=== PATIENT | female | born 1975 | race Caucasian/White ===

== ENCOUNTER 2020-03-26 01:00 | Outpatient (REF) | payer OTHER, SELFPAY | END 2020-03-26 01:01 | disposition home or self-care (01) | LOC: HO.LNP 01:00 | PROVIDERS: Visit Provider Family Medicine | DX: Z20.828 Contact with and (suspected) exposure to other viral communicable diseases (principal) | CPT/HCPCS: U0003 ==

== ENCOUNTER → 2020-04-30 10:22 | Outpatient (BNVA) | payer OTHER, SELFPAY | PROVIDERS: PCP Internal Medicine; Referring Provider Internal Medicine; Visit Provider Dietitian, Registered | DX: Z76.89 Persons encountering health services in other specified circumstances (principal) ==

== ENCOUNTER → 2020-06-18 11:07 | Outpatient (BNVA) | payer OTHER, SELFPAY | PROVIDERS: PCP Internal Medicine; Referring Provider Internal Medicine; Visit Provider Internal Medicine Endocrinology, Diabetes & Metabolism ==

== ENCOUNTER 2020-06-23 13:55 | Outpatient (REF) | payer OTHER, SELFPAY ==
--- NOTE | ~2020-06-23 | MM_ITS ---
EXAMINATION: MM SCREENING DIGITAL BREAST TOMOSYNTHESIS, BILATERAL CLINICAL INFORMATION: Screening. Asymptomatic. Prior history ultrasound-guided left breast biopsy 2016 (benign apocrine cyst). The lifetime risk of breast cancer based on the Tyrer-Cuzick Model is 16%. COMPARISON: Mammography: 02/10/2019, 01/19/2018, 11/10/2016 TECHNIQUE: Digital breast tomosynthesis is performed in both the craniocaudal and mediolateral oblique views along with computer-aided detection (CAD). Synthesized 2D images are generated from the tomosynthesis. FINDINGS: There are scattered areas of fibroglandular density (ACR BI-RADS breast composition Category b). There are no significant masses, abnormal calcifications, or other abnormalities. There is fine nodular parenchymal pattern. There is no dominant mass or architectural abnormality. Biopsy clip marker again seen posterior 9:00 left breast. The axilla and skin contours are unremarkable. No significant change. MM/MM tomosynthesis screening BI IMPRESSION: No mammographic evidence of malignancy. ASSESSMENT: BI-RADS 2: Benign RECOMMENDATION: Routine annual mammography screening. This patient's information was entered into a reminder system with a target due date for their next mammogram.
== END 2020-06-23 13:56 | disposition home or self-care (01) ==
LOC: HO.MAMMO 13:55
PROVIDERS: PCP Internal Medicine; Visit Provider Internal Medicine
DX: Z12.31 Encounter for screening mammogram for malignant neoplasm of breast (principal)
CPT/HCPCS: 77063; 77067

== ENCOUNTER 2020-07-04 10:28 | Outpatient (REF) | payer OTHER, SELFPAY ==
[2020-07-04 11:20] LABS: Hematocrit 46.7 % (37-47); Mean Corpuscular HGB Conc 32.1 g/dl (31.0-35.0); Mean Corpuscular Hemoglobin 26.2 pg (27.0-33.0); Mean Corpuscular Volume 81.5 fL (80-98); Mean Platelet Volume 12.8 fL (9.4-12.3); Platelet Count 224 X10*3/uL (160-400); Red Blood Count 5.73 X10*6/uL (4.20-5.50); Red Cell Distribution Width 13.4 % (11.0-16.0); White Blood Count 7.2 X10*3/uL (4.8-10.8)
[2020-07-04 11:33] LABS: Alanine Aminotransferase 23 U/L (0-31); Albumin Level 4.4 g/dL (3.5-5.0); Alkaline Phosphatase 65 U/L (39-117); Anion Gap 13 (12-20); Aspartate Amino Transferase 17 U/L (5-31); Bilirubin Total 0.4 mg/dL (0.0-1.0); Blood Urea Nitrogen 9 mg/dL (9-16); Calcium 9.2 mg/dL (8.4-10.2); Carbon Dioxide 27 mmol/L (22-29); Chloride 104 mmol/L (96-108); Cholesterol 208 mg/dL; Estimated Glomerular Filt Rate > 60; Glucose Fasting 116 mg/dL (60-99); HDL Cholesterol 48 mg/dL; LDL Cholesterol Calculated 119 mg/dl; Potassium 4.3 mmol/L (3.3-5.1); Sodium 140 mmol/L (135-145); Total Protein 7.7 g/dL (6.5-8.0); Triglycerides 205 mg/dL
[2020-07-04 11:44] LABS: Free T4 (Free Thyroxine) 1.43 ng/dL (0.71-1.85); Thyroid Stimulating Hormone 0.03 uIU/mL (0.32-4.0)
[2020-07-04 12:08] LABS: Creatinine Urine 228.29 mg/dL
[2020-07-04 12:17] LABS: Estimated Average Glucose 108 mg/dL; Hemoglobin A1c % 5.4 %
[2020-07-05 04:57] LABS: LDL Cholesterol Direct 129 mg/dL (<100)
[2020-07-07 05:12] LABS: Thyroglobulin Antibody <1 IU/mL (<=1); Thyroglobulin Level <0.1 ng/mL
== END 2020-07-04 10:29 | disposition home or self-care (01) ==
LOC: HO.LAB 10:28
PROVIDERS: PCP Internal Medicine; Visit Provider Internal Medicine Endocrinology, Diabetes & Metabolism
DX: E11.9 Type 2 diabetes mellitus without complications (principal); C73 Malignant neoplasm of thyroid gland
CPT/HCPCS: 36415; 80053; 80061; 82043; 83036; 83721; 84432; 84439; 84443; 85027; 86800

== ENCOUNTER 2020-07-19 14:03 | Outpatient (REF) | payer OTHER, SELFPAY | END 2020-07-19 14:04 | disposition home or self-care (01) | LOC: HO.LNP 14:03 | PROVIDERS: Visit Provider Family Medicine | DX: Z20.822 Contact with and (suspected) exposure to COVID-19 (principal); R05 Cough | CPT/HCPCS: U0003; U0005 ==

== ENCOUNTER → 2020-07-30 10:20 | Outpatient (BNVA) | payer OTHER, SELFPAY | PROVIDERS: PCP Internal Medicine; Visit Provider Dietitian, Registered ==

== ENCOUNTER → 2020-08-29 09:49 | Outpatient (BNVA) | payer OTHER, SELFPAY | PROVIDERS: PCP Internal Medicine; Visit Provider Dietitian, Registered | DX: E66.9 Obesity, unspecified (principal); E11.9 Type 2 diabetes mellitus without complications | CPT/HCPCS: 97803 ==

== ENCOUNTER → 2020-10-22 14:15 | Outpatient (BNVA) | payer OTHER, SELFPAY | PROVIDERS: PCP Internal Medicine; Visit Provider Internal Medicine Endocrinology, Diabetes & Metabolism ==

== ENCOUNTER 2020-11-01 13:58 | Outpatient (REF) | payer OTHER, SELFPAY ==
--- NOTE | ~2020-11-01 | US_ITS ---
EXAMINATION: US SOFT TISSUE NECK CLINICAL INFORMATION: Malignant neoplasm of thyroid gland. COMPARISON: None. TECHNIQUE: Ultrasound of the neck soft tissues is performed with high- frequency howe-scale imaging and color Doppler. FINDINGS: THYROID BED: Prior thyroidectomy. No residual thyroid tissue demonstrated in the thyroid bed. No cystic or solid nodules demonstrated in the thyroid bed. RIGHT NECK SOFT TISSUES: Scattered architecturally normal nodes are present. The nodes show normal fatty hilus, normal cortical thickness, and no cystic change or calcification. No abnormal color flow. The largest nodes are as follows: Level 1B: 0.9 x 0.6 x 1.0 cm. Normal kristal architecture. Level 2: 0.9 x 0.5 x 0.9 cm. Normal kristal architecture.. Level 2:1.2 x 0.5 0.8 cm. Normal kristal architecture. Previously measured 1.1 x 0.7 x 0.9 cm. Level 5A: 1.2 x 0.3 x 0.7 cm. Normal kristal architecture. Level 5B: 1.6 x 0.6 was 0.8 cm. Normal kristal architecture. Low level 3: 1.2 x 0.6 x 1.1 cm. Normal kristal architecture. Previously measured 1.5 x 0.7 x 0.9 cm. LEFT NECK SOFT TISSUES: Scattered architecturally normal nodes are present. The nodes show normal fatty hilus, normal cortical thickness, and no cystic change or calcification. No abnormal color flow. The largest nodes are as follows: Level 1B: 0.6 x 0.4 x 1.0 cm. Normal kristal architecture. Level 2: 1.3 x 0.6 x 1.3 cm. Normal kristal architecture. Level 2:1.0 x 0.4 0.4 cm. Normal kristal architecture. Level 3:1.2 x 0.7 x 0.9 cm, normal kristal architecture. Previously measured 1.5 x 0.4 x 0.9 cm at level for: 1.7 x 0.4 x 0.8 cm. Normal kristal architecture. Level 4: 1.7 x 0.4 x 0.8 cm. Normal kristal architecture. US/US soft tiss head and/or neck IMPRESSION: 1. Bilateral benign neck lymph nodes. None of the lymph nodes are suspicious at this time. 2. If clinically indicated further evaluation of the neck soft tissues and nodes may be performed with CT soft tissue neck with intravenous contrast.
== END 2020-11-01 13:59 | disposition home or self-care (01) ==
LOC: HO.US 13:58
PROVIDERS: PCP Internal Medicine; Visit Provider Internal Medicine Endocrinology, Diabetes & Metabolism
DX: C73 Malignant neoplasm of thyroid gland (principal)
CPT/HCPCS: 76536

== ENCOUNTER 2020-12-11 11:35 | Emergency (ER) | payer OTHER, SELFPAY ==
[2020-12-11 12:09] VITALS: BP 133/71; PULSE 60; RESP 18; TEMP 37.4; O2SAT 97; BMI 37.0
--- NOTE | 2020-12-11 15:55 | ED_ITS ---
HPI - General Adult General Chief complaint: General Medical Stated complaint: having symptoms of mild stroke Time Seen by Provider: 12/11/20 15:45 Source: patient Mode of arrival: ambulatory Limitations: no limitations History of Present Illness HPI narrative: 45-year-old female was sent by her PCP for evaluation of stroke symptoms. 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 And intermittent headaches, patient has a neurologist who evaluated the patient for insomnia but patient would like to get another neurologist for evaluation of her symptoms and she called her PCP who strongly advised her to come to the ED for further evaluation. Patient in the emergency department had no symptoms, felt that the patient need outpatient Neurology evaluation. Related Data Home Medications Medication Instructions Recorded Confirmed albuterol sulfate 90 mcg/actuation 2 puff INHALATION Q4-6H PRN 03/26/20 10/22/20 aerosol inhaler blood sugar diagnostic #10 ea 03/26/20 10/22/20 blood-glucose meter #1 ea 03/26/20 10/22/20 calcium citrate mal.-vit tab PO 03/26/20 10/22/20 D2-magnesium ox 200 mg-200 unit-25 mg tablet ergocalciferol (vitamin D2) 50 mcg 0 mcg PO 03/26/20 10/22/20 (2,000 unit) capsule fluticasone propionate 110 2 puff INHALATION BID 03/26/20 10/22/20 mcg/actuation HFA aerosol inhaler lancets 28 gauge #100 ea 03/26/20 10/22/20 levonorgestrel 20 mcg/24 hours (6 0 device VAGINAL 03/26/20 10/22/20 yrs) 52 mg intrauterine device Previous Rx's Medication Instructions Recorded ferrous sulfate 325 mg (65 mg 325 mg PO TID 90 Days #270 tab 04/27/20 iron) tablet ropinirole 0.5 mg tablet 1 mg PO DAILY #180 tab 07/27/20 sertraline 50 mg tablet 100 mg PO DAILY #180 tab 07/27/20 ergocalciferol (vitamin D2) 50 mcg 50 mcg PO DAILY 90 Days #90 cap 10/22/20 (2,000 unit) capsule levothyroxine 150 mcg tablet 150 mcg PO DAILY 90 Days #90 tab 10/22/20 Allergies Allergy/AdvReac Type Severity Reaction Status Date / Time lactose AdvReac Severe Abdominal Verified 12/11/20 12:09 Pain shrimp Allergy Severe Anaphylaxis Uncoded 04/30/20 10:48 Review of Systems Review of Systems: All other systems are reviewed and are negative Constitutional: Reports as per HPI and Reports no additional constitutional complaints Eyes: Reports as per HPI and Reports no additional eye complaints Reports system reviewed and no additional complaints, except as documented Cardiovascular: Reports as per HPI and Reports no additional cardiovascular complaints Respiratory: Reports as per HPI and Reports no additional respiratory complaints Gastrointestinal: Reports as per HPI and Reports no additional gastrointestinal complaints Genitourinary: Reports no additional female genitourinary complaints Musculoskeletal: Reports no additional musculoskeletal complaints Skin/Breast: Reports system reviewed and no additional complaints, except as docu Psychiatric: Reports no additional psychiatric complaints Endocrine: Reports no additional endocrine complaints Hematologic/Lymphatic: Reports no additional hematologic/lymphatic complaints Allergic/Immunologic: Reports no additional allergic/immunologic complaints Reports system reviewed and no additional complaints, except as documented and Reports Abnormal speech present [facility] Past Medical History Medical History Papillary microcarcinoma of thyroid Post-surgical hypothyroidism Vitamin D deficiency Surgical History History of partial hysterectomy Hx of carpal tunnel repair Hx of thyroidectomy Family History Family History Father Diabetes mellitus Mother No problems noted. Maternal Grandmother Bladder cancer Paternal Aunt Breast cancer Social History Social History (Updated 06/18/20 @ 11:06 by NIXON Smith) Household Members: Family Patient : No Physical Exam Vital Signs: Vital Signs: Last Vital Signs Temp 99.4 F 12/11/20 12:09 Pulse 60 12/11/20 12:09 Resp 18 12/11/20 12:09 BP 133/71 12/11/20 12:09 Pulse Ox 97 12/11/20 12:09 Body Mass Index 37.0 Vital signs have been reviewed as appeared to be correct. Blood pressure normal. Heart rate normal. Respiration rate normal. Temperature normal. Oxygen saturation normal. Appearance: Alert. Oriented X3. No acute distress. Head: Normal external exam. Normocephalic. Atraumatic. No Davis signs noted. No raccoon eyes noted Eyes: PERRLA. EOMI. Conjunctiva and sclera normal. Eyelids normal. ENT: TM's Normal. Pharynx normal. Uvula midline. Moist mucous membranes. No trismus noted. No drooling noted. No muffled voice noted. Neck: Normal inspection. Neck supple. FROM. No adenopathy. Thyroid Normal. No meningeal signs. No neck mass noted. CVS: Normal heart rate and rhythm. Heart sound normal. No murmurs noted. Pulses normal throughout. Respiratory: No respiratory distress. Painless inspiration. Breath sounds normal. No wheezes/rales/rhonchi noted. Chest nontender. No accessory muscle usage noted or decreased air movement noted. Abdomen: Soft and nontender. Bowel sounds normal in all 4 quadrants. No distention noted. No organomegaly noted. No visible injury noted. Back: No CVA tenderness. Full range of motion noted. Skin: Skin warm and dry. Normal skin color. Normal skin turgor. No rashes/lesions/lacerations noted. Extremities: No lower extremity edema. Extremities exhibit normal range of motion. Extremities nontender. Neuro: Oriented X 3. No motor deficit. No sensory deficit. Reflexes normal. NIH Stroke Scale Level of Consciousness: Alert Level of Consciousness Questions: Answers both questions correctly Level of Consciousness Commands: Performs both tasks correctly Best Gaze: Normal Visual: No visual loss Facial Palsy: Normal Motor Arm (Right): No drift Motor Arm (Left): No drift Motor Leg (Right): No drift Motor Leg (Left): No drift Limb Ataxia: Absent Sensory: Normal Best Language: No aphasia Dysarthia: Normal Extinction and Inattention: No abnormality Score: 0 Course Course Course Narrative: Assessment and plan. 45-year-old female with low risk for CVA (taking no hormonal therapy, history of minor elevated triglyceride been controlled with exercise and diet, borderline diabetes been controlled by diet, has 1 and diagnosed with minor stroke without residual symptoms) patient has normal neural exam with NIH Stroke Score of 0, and symptoms started months ago only patient can notice it otherwise symptoms is subtle for others. At this point felt no acute emergency intervention is needed to be done in the emergency department today, patient was instructed to contact her PCP and get outpatient Neurology consultation. Discharge Plan Discharge Clinical Impression: Encounter for medical screening examination Patient Disposition: Home, Self-Care Instructions: Normal Exam (ED) Additional Instructions: Call your doctor request a referral to neurologist as an outpatient. Prescriptions: No Action ferrous sulfate 325 mg (65 mg iron) tablet 325 mg PO TID 90 Days Qty: 270 RF: 3 ropinirole 0.5 mg tablet 1 mg PO DAILY Qty: 180 RF: 3 sertraline 50 mg tablet 100 mg PO DAILY Qty: 180 RF: 3 (DME) FreeStyle Lite Strips Strip See Rx Instructions ea Not Applicable DAILY Qty: 10 RF: 0 ergocalciferol (vitamin D2) 50 mcg (2,000 unit) capsule 0 mcg PO RF: 0 (DME) lancets 28 gauge misc See Rx Instructions ea topical DAILY Qty: 100 RF: 0 (DME) blood-glucose meter Kit See Rx Instructions ea .ROUTE DAILY Qty: 1 RF: 0 Mirena 20 mcg/24 hours (6 yrs) 52 mg intrauterine device 0 device vaginal RF: 0 calcium cit mal-vit D2-mag ox 200-200-25 mg-unit-mg tablet PO RF: 0 albuterol sulfate 90 mcg/actuation HFA aerosol inhaler 2 puff inhalation Q4-6H PRNRF: 0 fluticasone propionate 110 mcg/actuation HFA aerosol inhaler 2 puff inhalation BID RF: 0 levothyroxine 150 mcg tablet 150 mcg PO DAILY 90 Days Qty: 90 RF: 3 ergocalciferol (vitamin D2) 50 mcg (2,000 unit) capsule 50 mcg PO DAILY 90 Days Qty: 90 RF: 3 Referrals: Rica Rader MD [Primary Care Provider] - 2 days
--- NOTE | 2020-12-11 16:29 | PC.NURSE ---
pt alert and oriented x3. she reports having numbness, tingling, headache, and facial drooping x1 month. She states her PCP advised her to come to ed for further evaluation. Neuros intact, no visible facial drooping noted, equal strength bilateral upper and lower extremity. Pt evaluated by ed provider and is cleared for discharge.
== END 2020-12-11 16:40 | disposition home or self-care (01) ==
PROVIDERS: Emergency Provider Emergency Medicine; PCP Internal Medicine
DX: Z71.1 Person with feared health complaint in whom no diagnosis is made (principal)
CPT/HCPCS: 99283

== ENCOUNTER → 2021-01-09 08:41 | Outpatient (BNVA) | payer OTHER, SELFPAY | PROVIDERS: PCP Internal Medicine; Visit Provider Dietitian, Registered | DX: E66.9 Obesity, unspecified (principal); E11.9 Type 2 diabetes mellitus without complications | CPT/HCPCS: 97803 ==

== ENCOUNTER 2021-05-02 18:17 | Outpatient (REF) | payer OTHER, SELFPAY ==
[2021-05-02 18:58] LABS: Influenza A PCR NEGATIVE (Negative); Influenza B PCR NEGATIVE (Negative); Resp Syncy Virus RNA Qual PCR NEGATIVE (Negative); SARS COV2 PCR INHOUSE NEGATIVE (Negative)
== END 2021-05-02 18:18 | disposition home or self-care (01) ==
LOC: HO.LNP 18:17
PROVIDERS: Visit Provider Family Medicine
DX: Z20.822 Contact with and (suspected) exposure to COVID-19 (principal); R05.9 Cough, unspecified
CPT/HCPCS: 0241U

== ENCOUNTER 2021-06-27 08:34 | Outpatient (REF) | payer OTHER, SELFPAY ==
[2021-06-27 11:09] LABS: Free T4 (Free Thyroxine) 1.14 ng/dL (0.71-1.85); Thyroid Stimulating Hormone 0.44 uIU/mL (0.32-4.0)
[2021-07-01 02:31] LABS: Thyroglobulin Antibody <1 IU/mL (<=1)
[2021-07-01 05:07] LABS: Thyroglobulin Level <0.1 ng/mL
== END 2021-06-27 08:35 | disposition home or self-care (01) ==
LOC: HO.10HDL 08:34
PROVIDERS: Visit Provider Internal Medicine Endocrinology, Diabetes & Metabolism
DX: C73 Malignant neoplasm of thyroid gland (principal)
CPT/HCPCS: 36415; 84432; 84439; 84443; 86800

== ENCOUNTER → 2021-07-10 09:46 | Outpatient (BNVA) | payer OTHER, SELFPAY | PROVIDERS: PCP Internal Medicine; Visit Provider Dietitian, Registered | DX: E66.9 Obesity, unspecified (principal); E11.9 Type 2 diabetes mellitus without complications | CPT/HCPCS: 97803 ==

== ENCOUNTER 2021-07-20 09:54 | Outpatient (REF) | payer OTHER, SELFPAY ==
--- NOTE | ~2021-07-20 | MM_ITS ---
EXAMINATION: MM SCREENING DIGITAL BREAST TOMOSYNTHESIS, BILATERAL CLINICAL INFORMATION: Screening. Asymptomatic. The lifetime risk of breast cancer based on the Tyrer-Cuzick Model is 14%. COMPARISON: Mammography: 06/23/2020, 02/10/2019, 01/19/2018 TECHNIQUE: Digital breast tomosynthesis is performed in both the craniocaudal and mediolateral oblique views along with computer-aided detection (CAD). Synthesized 2D images are generated from the tomosynthesis. FINDINGS: There are scattered areas of fibroglandular density (ACR BI-RADS breast composition Category b). Parenchymal pattern is similar to prior studies. There is no developing density or architectural abnormality. Scattered fibronodular pattern is stable. There is a biopsy clip marker again noted posterior 9:00 left breast. The axilla and skin contours are unremarkable. No significant changes. MM/MM tomosynthesis screening BI IMPRESSION: No mammographic evidence of malignancy. ASSESSMENT: BI-RADS 2: Benign RECOMMENDATION: Routine annual mammography screening. This patient's information was entered into a reminder system with a target due date for their next mammogram.
== END 2021-07-20 09:55 | disposition home or self-care (01) ==
LOC: HO.MAMMO 09:54
PROVIDERS: Visit Provider Internal Medicine
DX: Z12.31 Encounter for screening mammogram for malignant neoplasm of breast (principal)
CPT/HCPCS: 77063; 77067

== ENCOUNTER 2021-08-13 13:58 | Outpatient (REF) | payer OTHER, SELFPAY ==
--- NOTE | 2021-08-13 16:08 | MHC.AU.ANR ---
Adult Audiological Evaluation Date of Visit: 08/13/21 Reason for Appointment: Claire was seen for a hearing evaluation to determine the status of a right sided hearing loss. 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 She states she has noticed increased difficulties understanding speech on the phone, at work, and at home. She states the hearing loss is now affecting her work abilities and social life. She reports not being ready to pursue hearing aids when she was first diagnosed with a hearing loss, but is now ready to consider them. She denies any tinnitus, vertigo, or history of excessive noise exposure. Does patient feel they have a hearing loss?: Yes If Yes, Which Ear?: Right Ear When Was Hearing Difficulty First Noticed?: 1997 Has hearing been tested previously?: Yes Previous Hearing Test Results: [facility]- Right sided sensorineural noise notch . Previous records not available for review today. Hearing Handicap Inventory: HHIE SCORE: 20 Based on HHIE score, patient has: Mild to moderate perceived hearing handicap Ear History: Recent Ear Drainage: Loose cerumen since childhood. Family History of Hearing Loss?: Yes: Father Ear used on the phone: Left Ear History of occupational noise exposure?: No Medical History: Medical History: Headache, Thyroid Disease Medical History (Other): Carpel tunnel surgery in 2003, Thyroidectomy 2018, reported an incident in childhood where her right TM was perforated Allergies: Shrimp, lactose Medication List: Levothyroxine, Sertraline, vitamin D, vitamin B, calcium, iron, Omeprazol, Flovent inhaler, Flonase Otoscopy: Right Ear: Unremarkable Left Ear: Unremarkable Tympanometry: Tympanometry performed due to: To assess integrity of the middle ear system Right Ear: Normal Middle Ear System (Type A) Left Ear: Normal Middle Ear System (Type A) Hearing Evaluation: Transducer(s) Used: Insert Earphones, Bone Conduction Method: Conventional Audiometry Stimuli Used: Pure Tones Right Ear: Description of Hearing: Normal hearing thresholds from 250-2000 Hz, precipitously sloping to a moderately severe sensorineural hearing loss at 3000 Hz, rising to normal hearing at 8000 Hz. A 25-40 dB asymmetry is noted from 7808-6175 Hz, right ear worse. Left Ear: Description of Hearing: Normal hearing thresholds from 250-8000 Hz. Speech Recognition Threshold (SRT): Method Used: Monitored Live Voice Stimuli Used: Spondee Words Right Ear: 20 dB HL Left Ear: 5 dB HL Word Discrimination: Method: Recorded Lists Word Lists Used: NU-6 Right Ear: 96% at 65 dB HL Left Ear: 100% at 65 dB HL QuickSIN: A 2 dB SNR loss was obtained when presented binaurally at 65 dB HL. This suggests normal speech in noise understanding abilities. Comparison: Compared to the most recent evaluation: Patient reports this audiogram looks very similar to the previous audiogram obtained at [facility]. Interpretation of Results: Asymmetrical sensorineural hearing loss, right ear worse from 9216-8997 Hz. Normal middle ear mobility. Recommendations: Claire should follow up ENT due to the asymmetrical nature of her hearing loss. If medical clearance is obtained, Claire is a candidate for a right sided hearing aid due to the degree of the hearing loss and patient complaints. She should contact her insurance company to determine if a hearing aid benefit could be accessed. Claire should return in one year to monitor the status of her hearing loss. Diagnosis: Primary Diagnosis: H90.41 SNHL Unilateral Right Ear, W/Unrestricted Contralateral Hearing Services Performed: Services Performed: Comprehensive Audiological Evaluation (CPT 20940) Tympanometry (CPT 65116) Signature: Student/Clinical Fellow: Yes: Mercy Wang B.A., Estela Electrical Software Engineer I have reviewed/agreed with student/fellow documentation: Yes Provider: Estela Cote, [facility]
--- NOTE | 2021-08-13 16:11 | MHC.AU.ANR ---
Adult Audiological Evaluation Date of Visit: 08/13/21 Reason for Appointment: Claire was seen for a hearing evaluation to determine the status of a right sided hearing loss. 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 She states she has noticed increased difficulties understanding speech on the phone, at work, and at home. She states the hearing loss is now affecting her work abilities and social life. She reports not being ready to pursue hearing aids when she was first diagnosed with a hearing loss, but is now ready to consider them. She denies any tinnitus, vertigo, or history of excessive noise exposure. Does patient feel they have a hearing loss?: Yes If Yes, Which Ear?: Right Ear When Was Hearing Difficulty First Noticed?: 1997 Has hearing been tested previously?: Yes, [facility]- Right sided sensorineural noise notch . Previous records not available for review today. Hearing Handicap Inventory: HHIE SCORE: 20 Based on HHIE score, patient has: Mild to moderate perceived hearing handicap Ear History: Recent Ear Drainage: Loose cerumen since childhood. Family History of Hearing Loss?: Yes: Father Medical History: Medical History: Headache, Thyroid Disease Medical History (Other): Carpel tunnel surgery in 2003, Thyroidectomy 2018, reported an incident in childhood where her right TM was perforated Allergies: Shrimp, lactose Medication List: Levothyroxine, Sertraline, vitamin D, vitamin B, calcium, iron, Omeprazol, Flovent inhaler, Flonase Otoscopy: Right Ear: Unremarkable Left Ear: Unremarkable Tympanometry: Tympanometry performed due to: To assess integrity of the middle ear system Right Ear: Normal Middle Ear System (Type A) Left Ear: Normal Middle Ear System (Type A) Hearing Evaluation: Transducer(s) Used: Insert Earphones, Bone Conduction Method: Conventional Audiometry Stimuli Used: Pure Tones Right Ear: Description of Hearing: Normal hearing thresholds from 250-2000 Hz, precipitously sloping to a moderately severe sensorineural hearing loss at 3000 Hz, rising to normal hearing at 8000 Hz. A 25-40 dB asymmetry is noted from 4006-4458 Hz, right ear worse. Left Ear: Description of Hearing: Normal hearing thresholds from 250-8000 Hz. Speech Recognition Threshold (SRT): Method Used: Monitored Live Voice Stimuli Used: Spondee Words Right Ear: 20 dB HL Left Ear: 5 dB HL Word Discrimination: Method: Recorded Lists Word Lists Used: NU-6 Right Ear: 96% at 65 dB HL Left Ear: 100% at 65 dB HL QuickSIN: A 2 dB SNR loss was obtained when presented binaurally at 65 dB HL. This suggests normal speech in noise understanding abilities. Comparison: Patient reports this audiogram looks very similar to the previous audiogram obtained at [facility]. Interpretation of Results: Asymmetrical sensorineural hearing loss, right ear worse from 8860-3803 Hz. Normal middle ear mobility. Recommendations: Claire should follow up ENT due to the asymmetrical nature of her hearing loss. If medical clearance is obtained, Claire is a candidate for a right sided hearing aid due to the degree of the hearing loss and patient complaints. She should contact her insurance company to determine if a hearing aid benefit could be accessed. Claire should return in one year to monitor the status of her hearing loss. Diagnosis: Primary Diagnosis: H90.41 SNHL Unilateral Right Ear, W/Unrestricted Contralateral Hearing Services Performed: Comprehensive Audiological Evaluation (CPT 78503), Tympanometry (CPT 61984) Signature: Student/Clinical Fellow: Yes: Mercy Wang B.A., Estela Quill Picking Machine Operator I have reviewed/agreed with student/fellow documentation: Yes Provider: Estela Cote, [facility]
== END 2021-08-13 13:59 | disposition home or self-care (01) ==
LOC: HO.SH 13:58
PROVIDERS: Visit Provider Internal Medicine
DX: Z01.118 Encounter for examination of ears and hearing with other abnormal findings (principal); H90.41 Sensorineural hearing loss, unilateral, right ear, with unrestricted hearing on the contralateral side
CPT/HCPCS: 92557; 92567

== ENCOUNTER → 2021-08-27 09:32 | Outpatient (BNVA) | payer OTHER, SELFPAY | PROVIDERS: PCP Internal Medicine; Referring Provider Internal Medicine; Visit Provider Physician Assistant | DX: Z13.89 Encounter for screening for other disorder (principal) ==

== ENCOUNTER 2021-10-02 08:59 | Outpatient (REF) | payer OTHER, SELFPAY ==
--- NOTE | ~2021-10-02 | US_ITS ---
EXAMINATION: US COMPLETE ABDOMEN WITH LIVER ELASTOGRAPHY CLINICAL INFORMATION: Right upper quadrant pain. Obesity. COMPARISON: Previous abdominal ultrasound from 2017 TECHNIQUE: Real-time imaging of the abdominal viscera. Noninvasive ultrasound liver fibrosis assessment is performed using Emilee ElastPQ point quantification shear wave elastography (2D-SWE) with a C5-2 MHz transducer. Multiple elastography samples are obtained. FINDINGS: PANCREAS: Normal. ABDOMINAL AORTA: The proximal, middle, and distal aortic segments are normal in caliber. INFERIOR VENA CAVA: Visualized portions are normal. LIVER: Liver echotexture is increased. The liver is normal in size and contour.. No focal lesion or intrahepatic biliary duct dilatation. The right lobe measures 14.5 cm in length. The left lobe measures 18 cm in length. Portal flow is normal/hepatopedal Shear wave liver elastography median stiffness is 1.5 m/s (reference: normal median stiffness is 1.3 m/s or less). IQR/median stiffness to assess sampling precision is 0.1 (reference: good quality data set is IQR/median stiffness of 0.15 or less). GALLBLADDER: Normal. The gallbladder is physiologically distended without evidence of stones, sludge, polyps, wall thickening or pericholecystic fluid. COMMON BILE DUCT: Normal in caliber measuring 0.6 cm in diameter. RIGHT KIDNEY: There is a 3 mm stone in the lower pole. No hydronephrosis. No focal parenchymal lesions. The kidney measures 12.2 cm in maximum dimension. LEFT KIDNEY: Normal. No hydronephrosis. No renal calculi or focal parenchymal lesions. The kidney measures 12.4 cm in maximum dimension. SPLEEN: Normal. The spleen measures 11.8 cm in maximum dimension. FREE FLUID: None. US/US abdomen comp w elastography IMPRESSION: 1. Impression: Echogenic liver probably representing fatty infiltration. Right renal stone. 2. Liver elastography: Adequate liver sampling. In the absence of other known clinical signs, rules out compensated advanced chronic liver disease. REFERENCE: Society of Radiologists in Ultrasound Liver Stiffness Thresholds (2020): LIVER STIFFNESS THRESHOLDS: *Liver Stiffness equal or less than 1.3 m/s: High probability of being normal. *Liver Stiffness less than 1.7 m/s: In the absence of other known clinical signs, rules out compensated advanced chronic liver disease. *Liver Stiffness 1.7-2.1 m/s: Suggestive of compensated advanced chronic liver disease but need further test for confirmation. *Liver Stiffness over 2.1 m/s: Rules in compensated advanced chronic liver disease. *Liver Stiffness over 2.4 m/s: Suggestive of clinically significant portal hypertension. QUALITY OF DATA SET: *IQR/Median value equal or less than 0.15 implies a quality data set. *IQR/Median value over 0.15 implies a poor quality data set. SIGNIFICANT CHANGE FROM PRIOR EXAM: Significant change if liver stiffness measurement is 10% or greater from prior exam. OTHER CONSIDERATIONS: The stage of liver fibrosis may be overestimated in the setting of acute hepatitis, liver inflammation, elevated liver function tests, hepatic vascular congestion, obstructive cholestasis, non-fasting state, and infiltrative diseases such as amyloidosis and lymphoma. In some patients with NAFLD, the liver stiffness thresholds for compensated advanced chronic liver disease may be lower. In causes other than viral hepatitis and NAFLD, liver stiffness thresholds are not well established.
--- NOTE | ~2021-10-02 | US_ITS ---
EXAMINATION: US SOFT TISSUE NECK CLINICAL INFORMATION: Malignant neoplasm of thyroid gland. COMPARISON: Ultrasound soft tissue neck 11/01/2020 and 07/20/2019. TECHNIQUE: Ultrasound of the neck soft tissues is performed with high- frequency howe-scale imaging and color Doppler. FINDINGS: THYROID BED: Prior thyroidectomy. No residual thyroid tissue demonstrated in the thyroid bed. No cystic or solid nodules demonstrated in the thyroid bed. There are a total of 16 lymph nodes identified. The questioned abnormal ones will be listed with the other demonstrating normal-appearing lymph nodes with normal fatty hilum and no evidence of cortical thickening or lobulation. The lymph nodes are difficult to compare to prior study due to the large number. RIGHT NECK SOFT TISSUES: Level 3: 1.3 x 0.8 x 1.0. cm. Previously this measured 1.2 x 0.6 x 1.1 cm in size. Fatty hilum is not identified. No cortical lobulation identified. The lymph node is not round and no definite calcification is evident. Level 3: 1.7 x 0.4 x 1.4 cm. There appears to be an absent fatty cleft. No cortical lobulation is identified. Level 3:1.7 x 0.8 x 1.3 cm. Absent fatty hilum. No cortical lobulation. Level 5A: 1.0 x 0.6 x 0.9 cm. Previously 1.2 x 0.5 x 0.8 cm in size. There is a normal fatty cleft present however the cortical margins appear somewhat irregular. No cortical thickening is identified. LEFT NECK SOFT TISSUES: Level 1B: 1.1 x 0.6 x 0.8 cm. Normal fatty cleft is present however there is question of cortical thickening to approximately 5 mm in diameter. No cortical lobulation is seen. Level 3: 1.0 x 0.7 x 0.7 cm. Previously this measured 1.2 x 0.7 x 0.9 cm in size. There is a rounded appearance to the lymph node with absent fatty hilum. US/US soft tiss head and/or neck IMPRESSION: 1. Numerous bilateral cervical lymph nodes. A few have absent fatty hilum bilaterally. Within the right level 5A there is a lymph node with some question irregular margins but without cortical thickening present. 2. Within left level 1B there is a 1.1 cm maximum dimension lymph node with a thickened cortex.
[2021-10-02 10:58] LABS: MANUAL DIFF FLAG NO
[2021-10-02 11:01] LABS: Basophils Absolute Auto 0.1 X10*3/uL (0.0-0.2); Basophils Percent Auto 0.7 % (0-2); Eosinophils Absolute Auto 0.2 X10*3/uL (0.0-0.4); Eosinophils Percent Auto 3.2 % (0-4); Hematocrit 44.5 % (37.0-47.0); Hemoglobin 14.6 g/dl (12.0-16.0); Imm Gran Abs Auto 0.04 X10*3/uL (0.00-0.03); Imm Gran Pct Auto 0.6 % (0.0-0.4); Lymphocytes Absolute Auto 1.7 X10*3/uL (1.2-4.9); Lymphocytes Percent Auto 24.3 % (20-40); Mean Corpuscular HGB Conc 32.8 g/dl (31.0-35.0); Mean Corpuscular Hemoglobin 26.3 pg (27.0-33.0); Mean Corpuscular Volume 80.2 fL (80.0-98.0); Mean Platelet Volume 11.8 fL (9.4-12.3); Monocytes Absolute Auto 0.6 X10*3/uL (0.1-1.2); Monocytes Percent Auto 8.7 % (2-11); Neutrophils Absolute Auto 4.5 x10*3/uL (2.0-8.3); Neutrophils Percent Auto 62.5 % (45-73); Platelet Count 219 X10*3/uL (160-400); Red Blood Count 5.55 X10*6/uL (4.20-5.50); Red Cell Distribution Width 13.5 % (11.0-16.0); White Blood Count 7.2 X10*3/uL (4.8-10.8)
[2021-10-02 11:35] LABS: Erythrocyte Sedimentation Rate 5 MM/HR (0-20)
[2021-10-02 11:38] LABS: Alanine Aminotransferase 32 U/L (0-31); Albumin Level 4.3 g/dL (3.5-5.0); Alkaline Phosphatase 62 U/L (39-117); Anion Gap 12 (12-20); Aspartate Amino Transferase 17 U/L (5-31); Bilirubin Total 0.5 mg/dL (0.0-1.0); Blood Urea Nitrogen 9 mg/dL (9-16); Calcium 9.6 mg/dL (8.4-10.2); Carbon Dioxide 27 mmol/L (22-29); Chloride 104 mmol/L (96-108); Cholesterol 230 mg/dL; Estimated Glomerular Filt Rate > 60; Glucose Fasting 113 mg/dL (60-99); HDL Cholesterol 39 mg/dL; Iron 81 mcg/dL (30-160); LDL Cholesterol Calculated 125 mg/dl; Percent Iron Saturation 25 % (15-50); Potassium 4.3 mmol/L (3.3-5.1); Sodium 139 mmol/L (135-145); Total Iron Binding Capacity 324 mcg/dL (228-428); Total Protein 7.6 g/dL (6.5-8.0); Triglycerides 332 mg/dL; Unsaturated Iron Binding 243 ug/dL
[2021-10-02 12:01] LABS: Vitamin D 25-OH Total 34.6 ng/mL (>30)
[2021-10-02 12:02] LABS: Thyroid Stimulating Hormone 0.09 uIU/mL (0.32-4.0)
[2021-10-02 14:52] LABS: Folate 18.7 ng/mL (> or = 4.0); Vitamin B12 483 pg/mL (200-900)
[2021-10-08 13:41] LABS: Endomysial IgA Antibody Negative (Negative)
[2021-10-08 15:16] LABS: Transglutaminase IgA <1.0 U/mL
== END 2021-10-02 09:00 | disposition home or self-care (01) ==
LOC: HO.US 08:59
PROVIDERS: Absent Provider Physician Assistant; PCP Internal Medicine; Visit Provider Internal Medicine
DX: Z00.00 Encounter for general adult medical examination without abnormal findings (principal); R10.11 Right upper quadrant pain; K21.9 Gastro-esophageal reflux disease without esophagitis; K52.9 Noninfective gastroenteritis and colitis, unspecified; D64.9 Anemia, unspecified; E78.5 Hyperlipidemia, unspecified; E89.0 Postprocedural hypothyroidism; R53.82 Chronic fatigue, unspecified; E55.9 Vitamin D deficiency, unspecified
CPT/HCPCS: 36415; 76536; 76705; 76981; 80053; 80061; 82306; 82607; 82746; 83540; 84443; 85025; 85652; 86231; 86364

== ENCOUNTER 2021-10-02 13:05 | Outpatient (REF) | payer OTHER, SELFPAY | END 2021-10-02 13:06 | disposition home or self-care (01) | LOC: HO.WFDLDS 13:05 | PROVIDERS: PCP Internal Medicine; Visit Provider Physician Assistant | DX: Z00.00 Encounter for general adult medical examination without abnormal findings (principal); K52.9 Noninfective gastroenteritis and colitis, unspecified; R10.11 Right upper quadrant pain; K21.9 Gastro-esophageal reflux disease without esophagitis; D64.9 Anemia, unspecified; E78.5 Hyperlipidemia, unspecified; R53.82 Chronic fatigue, unspecified; E55.9 Vitamin D deficiency, unspecified | CPT/HCPCS: 36415; 87329 ==

== ENCOUNTER → 2021-10-22 13:30 | Outpatient (BNVA) | payer OTHER, SELFPAY | PROVIDERS: PCP Internal Medicine; Visit Provider Internal Medicine Endocrinology, Diabetes & Metabolism | DX: C73 Malignant neoplasm of thyroid gland (principal) ==

== ENCOUNTER 2021-12-25 14:33 | Outpatient (REF) | payer OTHER, SELFPAY ==
--- NOTE | 2021-12-25 15:51 | PFT_ITS ---
INDICATION: Asthma. SPIROMETRY: FEV1 to FVC pre bronchodilator 67%, post bronchodilators 73% with an FEV1 of 2.33 L, which is 90% predicted and an FVC of 3.17 L, which is 100% predicted. Post bronchodilators, there was a significant improvement of the FVC by 23% and of the FEV1 by 36%. Also to note, the FEV1 to FVC normalized to 73%. The patient also has significant airways disease also noted. Maximum voluntary ventilation 72% predicted. LUNG VOLUMES: Total lung capacity 106% predicted with residual volume 129% predicted. The expiratory reserve volume only 21% predicted. DIFFUSION CAPACITY: DLCO 125% predicted. COMPARISONS: None. INTERPRETATION: There is a reversible obstructive ventilatory defect consistent with a history of asthma. The patient has significant small airways disease suggesting likely a more severe case of asthma. The patient did have a significant response to bronchodilators noted. There is a mild decrease in maximum voluntary ventilation secondary to likely deconditioning and also worsening dynamic inspiratory capacity. Lung volumes with significant air trapping due to the small airways disease, and the patient has a high normal diffusion capacity. Clinical correlation warranted. MD CAPRI Trejo/MODL / [id number]
[2021-12-25 16:02] LABS: MANUAL DIFF FLAG NO
[2021-12-25 16:21] LABS: Basophils Absolute Auto 0.1 X10*3/uL (0.0-0.2); Basophils Percent Auto 0.5 % (0-2); Eosinophils Absolute Auto 0.4 X10*3/uL (0.0-0.4); Eosinophils Percent Auto 3.6 % (0-4); Hematocrit 46.1 % (37.0-47.0); Hemoglobin 15.2 g/dl (12.0-16.0); Imm Gran Abs Auto 0.05 X10*3/uL (0.00-0.03); Imm Gran Pct Auto 0.5 % (0.0-0.4); Lymphocytes Absolute Auto 2.9 X10*3/uL (1.2-4.9); Lymphocytes Percent Auto 29.7 % (20-40); Mean Corpuscular Hemoglobin 26.4 pg (27.0-33.0); Mean Platelet Volume 12.3 fL (9.4-12.3); Monocytes Absolute Auto 0.9 X10*3/uL (0.1-1.2); Monocytes Percent Auto 9.4 % (2-11); Neutrophils Absolute Auto 5.4 x10*3/uL (2.0-8.3); Neutrophils Percent Auto 56.3 % (45-73); Platelet Count 248 X10*3/uL (160-400); Red Blood Count 5.76 X10*6/uL (4.20-5.50); Red Cell Distribution Width 13.8 % (11.0-16.0); White Blood Count 9.6 X10*3/uL (4.8-10.8)
== END 2021-12-25 14:34 | disposition home or self-care (01) ==
LOC: HO.RESP 14:33
PROVIDERS: Absent Provider Internal Medicine Endocrinology, Diabetes & Metabolism; PCP Internal Medicine; Referring Provider Internal Medicine; Visit Provider Internal Medicine Pulmonary Disease
DX: J45.40 Moderate persistent asthma, uncomplicated (principal); R06.00 Dyspnea, unspecified
CPT/HCPCS: 36415; 82785; 85025; 86003; 94060; 94727; 94729

== ENCOUNTER 2021-12-26 | Outpatient (REF) | payer OTHER, SELFPAY ==
[2021-12-25 17:12] LABS: Free T4 (Free Thyroxine) 1.11 ng/dL (0.71-1.85); Thyroid Stimulating Hormone 1.81 uIU/mL (0.32-4.0)
== END 2021-12-26 00:01 | disposition home or self-care (01) ==
LOC: HO.HAP
PROVIDERS: Internal Medicine Endocrinology, Diabetes & Metabolism; Visit Provider Internal Medicine
DX: C73 Malignant neoplasm of thyroid gland (principal)
CPT/HCPCS: 36415; 84439; 84443

== ENCOUNTER 2022-01-08 15:42 | Outpatient (REF) | payer OTHER, SELFPAY ==
[2022-01-08 17:24] LABS: Rheumatoid Factor < 15.0 IU/mL (<15.0)
[2022-01-08 17:33] LABS: Thyroid Stimulating Hormone 2.37 uIU/mL (0.32-4.0)
[2022-01-13 07:37] LABS: Anti DNA DS Antibody <1 IU/mL
[2022-01-15 14:25] LABS: Anti Nuclear Antibody Pattern Nuclear, Homogeneous; Anti Nuclear Antibody Screen POSITIVE (NEGATIVE); Anti Nuclear Antibody Titer 1:40 titer
== END 2022-01-08 15:43 | disposition home or self-care (01) ==
LOC: HO.LAB 15:42
PROVIDERS: PCP Internal Medicine; Visit Provider Internal Medicine
DX: C73 Malignant neoplasm of thyroid gland (principal); R53.82 Chronic fatigue, unspecified
CPT/HCPCS: 36415; 84443; 86038; 86039; 86225; 86431

== ENCOUNTER 2022-06-03 08:13 | Outpatient (REF) | payer OTHER, SELFPAY ==
[2022-06-03 11:45] LABS: MANUAL DIFF FLAG NO
[2022-06-03 12:04] LABS: Basophils Absolute Auto 0.1 X10*3/uL (0.0-0.2); Basophils Percent Auto 0.6 % (0-2); Eosinophils Absolute Auto 0.2 X10*3/uL (0.0-0.4); Eosinophils Percent Auto 2.3 % (0-4); Hematocrit 45.2 % (37.0-47.0); Hemoglobin 14.7 g/dl (12.0-16.0); Imm Gran Abs Auto 0.05 X10*3/uL (0.00-0.03); Imm Gran Pct Auto 0.6 % (0.0-0.4); Lymphocytes Percent Auto 22.3 % (20-40); Mean Corpuscular HGB Conc 32.5 g/dl (31.0-35.0); Mean Corpuscular Hemoglobin 26.5 pg (27.0-33.0); Mean Corpuscular Volume 81.4 fL (80.0-98.0); Mean Platelet Volume 11.7 fL (9.4-12.3); Monocytes Absolute Auto 0.7 X10*3/uL (0.1-1.2); Monocytes Percent Auto 7.5 % (2-11); Neutrophils Absolute Auto 5.9 x10*3/uL (2.0-8.3); Neutrophils Percent Auto 66.7 % (45-73); Platelet Count 239 X10*3/uL (160-400); Red Blood Count 5.55 X10*6/uL (4.20-5.50); Red Cell Distribution Width 13.6 % (11.0-16.0); White Blood Count 8.8 X10*3/uL (4.8-10.8)
== END 2022-06-03 08:14 | disposition home or self-care (01) ==
LOC: HO.WFDLDS 08:13
PROVIDERS: Visit Provider Internal Medicine
DX: D64.9 Anemia, unspecified (principal)
CPT/HCPCS: 36415; 85025

== ENCOUNTER 2022-06-09 08:21 | Outpatient (REF) | payer OTHER, SELFPAY ==
[2022-06-09 13:01] LABS: Creatinine Urine 237.31 mg/dL
[2022-06-09 13:14] LABS: Folate 10.9 ng/mL (> or = 4.0); Vitamin B12 530 pg/mL (200-900)
[2022-06-09 13:53] LABS: Alanine Aminotransferase 41 U/L (0-31); Albumin Level 4.2 g/dL (3.5-5.0); Alkaline Phosphatase 71 U/L (39-117); Anion Gap 13 (12-20); Aspartate Amino Transferase 30 U/L (5-31); Bilirubin Total 0.5 mg/dL (0.0-1.0); Blood Urea Nitrogen 9 mg/dL (9-16); Calcium 8.8 mg/dL (8.4-10.2); Carbon Dioxide 29 mmol/L (22-29); Chloride 103 mmol/L (96-108); Cholesterol 206 mg/dL; Estimated Glomerular Filt Rate > 60; Glucose Fasting 126 mg/dL (60-99); HDL Cholesterol 36 mg/dL; LDL Cholesterol Calculated 115 mg/dl; Potassium 3.9 mmol/L (3.3-5.1); Sodium 141 mmol/L (135-145); Total Protein 7.3 g/dL (6.5-8.0); Triglycerides 278 mg/dL
[2022-06-09 14:00] LABS: Estimated Average Glucose 126 mg/dL
[2022-06-09 14:12] LABS: TSH reflex Free T4 8.19 uIU/mL (0.32-4.0); Vitamin D 25-OH Total 21.7 ng/mL (>30)
[2022-06-09 15:10] LABS: Free T4 (Free Thyroxine) 1.32 ng/dL (0.71-1.85)
== END 2022-06-09 08:22 | disposition home or self-care (01) ==
LOC: HO.WFDLDS 08:21
PROVIDERS: Visit Provider Nurse Practitioner Family
DX: E11.9 Type 2 diabetes mellitus without complications (principal); J45.40 Moderate persistent asthma, uncomplicated
CPT/HCPCS: 36415; 80053; 80061; 82043; 82306; 82607; 82746; 83036; 84439; 84443

== ENCOUNTER → 2022-06-13 12:29 | Outpatient (BNVA) | payer OTHER, SELFPAY | PROVIDERS: PCP Nurse Practitioner Family; Visit Provider Internal Medicine Endocrinology, Diabetes & Metabolism | DX: C73 Malignant neoplasm of thyroid gland (principal) ==

== ENCOUNTER 2022-07-01 10:20 | Outpatient (REF) | payer OTHER, SELFPAY ==
--- NOTE | ~2022-07-01 | US_ITS ---
EXAMINATION: US ULTRASOUND-GUIDED FINE-NEEDLE ASPIRATION CLINICAL INFORMATION: Thyroid cancer. COMPARISON: Previous soft tissue ultrasound of the neck, most recent September 2021. TECHNIQUE: Procedure and risks and benefits including bleeding and infection were discussed with the patient and informed consent was obtained. Initially, the right neck was prepped and draped in the usual sterile fashion. The skin and soft tissues were anesthetized with 1% lidocaine plain. Using ultrasound guidance and a 25-gauge needle, access to the right 5A lymph node was obtained. Two 25-gauge FNA specimens were obtained. Subsequently, the left neck was prepped and draped in the usual sterile fashion. The skin and soft tissues were anesthetized with 1% lidocaine plain. Using ultrasound guidance and a 25-gauge needle, access to a left level 1B lymph node was obtained. Two 25-gauge FNA specimens were obtained. FINDINGS: There is a 1.1 x 0.6 x 0.7 cm slightly irregularly-shaped right level 5A lymph node that was targeted for fine-needle aspiration. There is a 1.1 x 0.6 x 0.6 cm diffusely hypoechoic left level 1B lymph node with loss of fatty hilum that was targeted for fine-needle aspiration. US/US guided fine needle asp IMPRESSION: Bilateral cervical lymph node fine-needle aspiration.
--- NOTE | ~2022-07-01 | US_ITS ---
EXAMINATION: US ULTRASOUND-GUIDED FINE-NEEDLE ASPIRATION CLINICAL INFORMATION: Thyroid cancer. COMPARISON: Previous soft tissue ultrasound of the neck, most recent September 2021. TECHNIQUE: Procedure and risks and benefits including bleeding and infection were discussed with the patient and informed consent was obtained. Initially, the right neck was prepped and draped in the usual sterile fashion. The skin and soft tissues were anesthetized with 1% lidocaine plain. Using ultrasound guidance and a 25-gauge needle, access to the right 5A lymph node was obtained. Two 25-gauge FNA specimens were obtained. Subsequently, the left neck was prepped and draped in the usual sterile fashion. The skin and soft tissues were anesthetized with 1% lidocaine plain. Using ultrasound guidance and a 25-gauge needle, access to a left level 1B lymph node was obtained. Two 25-gauge FNA specimens were obtained. FINDINGS: There is a 1.1 x 0.6 x 0.7 cm slightly irregularly-shaped right level 5A lymph node that was targeted for fine-needle aspiration. There is a 1.1 x 0.6 x 0.6 cm diffusely hypoechoic left level 1B lymph node with loss of fatty hilum that was targeted for fine-needle aspiration. US/US guided fine needle asp IMPRESSION: Bilateral cervical lymph node fine-needle aspiration.
[2022-07-01] MEDS: Lidocaine HCl 1 % MPF 5 ML VIAL SUBCUT (12:02)
[2022-07-02 08:54] LABS: Glucose, Whole Blood 108 mg/dL (60-115)
[2022-07-12 22:09] LABS: Thyroglobulin, Fine Needle Asp <0.1 ng/mL
== END 2022-07-01 10:21 | disposition home or self-care (01) ==
LOC: HO.US 10:20
PROVIDERS: Radiology Diagnostic Radiology; PCP Internal Medicine; Visit Provider Internal Medicine Endocrinology, Diabetes & Metabolism
DX: C73 Malignant neoplasm of thyroid gland (principal); E11.9 Type 2 diabetes mellitus without complications
CPT/HCPCS: 10005; 36415; 82947; 84432; 88172; 88173; 88184; 88185; 88300

== ENCOUNTER 2022-07-21 11:23 | Outpatient (REF) | payer OTHER, SELFPAY ==
[2022-07-21 15:11] LABS: Free T4 (Free Thyroxine) 1.13 ng/dL (0.71-1.85); Thyroid Stimulating Hormone 3.41 uIU/mL (0.32-4.0)
== END 2022-07-21 11:24 | disposition home or self-care (01) ==
LOC: HO.WFDLDS 11:23
PROVIDERS: Visit Provider Internal Medicine Endocrinology, Diabetes & Metabolism
DX: C73 Malignant neoplasm of thyroid gland (principal)
CPT/HCPCS: 36415; 84439; 84443

== ENCOUNTER → 2022-07-22 10:08 | Outpatient (BNVA) | payer OTHER, SELFPAY | PROVIDERS: PCP Internal Medicine; Visit Provider Internal Medicine Endocrinology, Diabetes & Metabolism | DX: Z13.89 Encounter for screening for other disorder (principal) ==

== ENCOUNTER 2022-07-26 07:42 | Outpatient (REF) | payer OTHER, SELFPAY ==
--- NOTE | ~2022-07-26 | MM_ITS ---
EXAMINATION: MM SCREENING DIGITAL BREAST TOMOSYNTHESIS, BILATERAL CLINICAL INFORMATION: Screening. Asymptomatic. The lifetime risk of breast cancer based on the Tyrer-Cuzick Model is 15%. COMPARISON: Multiple prior mammography, most recent 07/20/2021. TECHNIQUE: Digital breast tomosynthesis is performed in both the craniocaudal and mediolateral oblique views along with computer-aided detection (CAD). Synthesized 2D images are generated from the tomosynthesis. FINDINGS: There are scattered areas of fibroglandular density (ACR BI-RADS breast composition Category b). There is a fine fibronodular parenchymal pattern similar to prior studies. There are no significant masses, abnormal calcifications, or other abnormalities. There is a biopsy clip marker again noted posterior 9:00 left breast. The axilla and skin contours are unremarkable. No significant changes. MM/MM tomosynthesis screening BI IMPRESSION: No mammographic evidence of malignancy. ASSESSMENT: BI-RADS 2: Benign RECOMMENDATION: Routine annual mammography screening. This patient's information was entered into a reminder system with a target due date for their next mammogram.
== END 2022-07-26 07:43 | disposition home or self-care (01) ==
LOC: HO.MAMMO 07:42
PROVIDERS: PCP Internal Medicine; Visit Provider Internal Medicine
DX: Z12.31 Encounter for screening mammogram for malignant neoplasm of breast (principal)
CPT/HCPCS: 77063; 77067

== ENCOUNTER 2022-09-03 12:00 | Outpatient (REF) | payer OTHER, SELFPAY ==
[2022-09-03 15:31] LABS: Free T4 (Free Thyroxine) 1.03 ng/dL (0.71-1.85); Thyroid Stimulating Hormone 1.65 uIU/mL (0.32-4.0); Vitamin D 25-OH Total 32.5 ng/mL (>30)
== END 2022-09-03 12:01 | disposition home or self-care (01) ==
LOC: HO.WFDLDS 12:00
PROVIDERS: Nurse Practitioner Family; Visit Provider Internal Medicine Endocrinology, Diabetes & Metabolism
DX: C73 Malignant neoplasm of thyroid gland (principal); R79.89 Other specified abnormal findings of blood chemistry; E55.9 Vitamin D deficiency, unspecified
CPT/HCPCS: 36415; 82306; 84439; 84443

== ENCOUNTER 2022-10-03 11:14 | Outpatient (REF) | payer OTHER, SELFPAY ==
[2022-10-03 13:43] LABS: MANUAL DIFF FLAG NO
[2022-10-03 13:50] LABS: Basophils Absolute Auto 0.1 X10*3/uL (0.0-0.2); Basophils Percent Auto 0.7 % (0-2); Eosinophils Absolute Auto 0.2 X10*3/uL (0.0-0.4); Eosinophils Percent Auto 1.7 % (0-4); Hematocrit 42.3 % (37.0-47.0); Imm Gran Abs Auto 0.11 X10*3/uL (0.00-0.03); Imm Gran Pct Auto 1.3 % (0.0-0.4); Lymphocytes Absolute Auto 2.1 X10*3/uL (1.2-4.9); Lymphocytes Percent Auto 24.1 % (20-40); Mean Corpuscular HGB Conc 33.1 g/dl (31.0-35.0); Mean Corpuscular Hemoglobin 26.8 pg (27.0-33.0); Mean Platelet Volume 12.7 fL (9.4-12.3); Monocytes Absolute Auto 0.8 X10*3/uL (0.1-1.2); Monocytes Percent Auto 9.3 % (2-11); Neutrophils Absolute Auto 5.5 x10*3/uL (2.0-8.3); Neutrophils Percent Auto 62.9 % (45-73); Platelet Count 199 X10*3/uL (160-400); Red Blood Count 5.22 X10*6/uL (4.20-5.50); Red Cell Distribution Width 13.9 % (11.0-16.0); White Blood Count 8.7 X10*3/uL (4.8-10.8)
[2022-10-03 14:14] LABS: Alanine Aminotransferase 49 U/L (0-31); Albumin Level 4.3 g/dL (3.5-5.0); Alkaline Phosphatase 64 U/L (39-117); Anion Gap 12 (12-20); Aspartate Amino Transferase 25 U/L (5-31); Bilirubin Direct 0.1 mg/dL (0.0-0.5); Bilirubin Total 0.5 mg/dL (0.0-1.0); Blood Urea Nitrogen 11 mg/dL (9-16); Calcium 9.1 mg/dL (8.4-10.2); Carbon Dioxide 27 mmol/L (22-29); Chloride 104 mmol/L (96-108); Estimated Glomerular Filt Rate > 60; Glucose Random 98 mg/dL (60-115); Potassium 4.1 mmol/L (3.3-5.1); Sodium 139 mmol/L (135-145); Total Protein 7.4 g/dL (6.5-8.0)
[2022-10-05 23:39] LABS: TS Negative Control Passed; TS Panel A 0; TS Panel B 0; TS Positive Control Passed; TSpotTB Negative (Negative)
[2022-10-06 04:37] LABS: HBc Num1 0.12 S/CO (0.00-0.79); HBsAGNum1 0.29 S/CO (0.00-0.99); Hepatitis B Core Antibody Nonreactive (Nonreactive); Hepatitis B Surface Antigen Negative (Negative); ~HepC Num1 0.14 S/CO (0.00-0.79); ~Hepatitis B Surface Antibody REACTIVE (Nonreactive); ~Hepatitis C Antibody Nonreactive (Nonreactive)
== END 2022-10-03 11:15 | disposition home or self-care (01) ==
LOC: HO.WFDLDS 11:14
PROVIDERS: Visit Provider Physician Assistant
DX: Z11.1 Encounter for screening for respiratory tuberculosis (principal); L40.0 Psoriasis vulgaris; L91.8 Other hypertrophic disorders of the skin; D18.01 Hemangioma of skin and subcutaneous tissue; L92.1 Necrobiosis lipoidica, not elsewhere classified
CPT/HCPCS: 36415; 80048; 80076; 85025; 86481; 86704; 86706; 86803; 87340

== ENCOUNTER 2023-01-20 10:26 | Outpatient (AMB) | payer OTHER, SELFPAY ==
--- NOTE | 2023-01-20 10:28 | MHC.OFFVIS ---
Intake Vital Signs 01/20/23 10:30 Height 5 ft 1.5 in Weight 203 lb 0.732 oz BMI 37.7 BP 126/86 Blood Pressure Location Lt brachial Position Sitting Pulse 74 Pulse Source Pulse Oximeter Intake Visit Reasons: f/u Thyroid cancer/lvm Intake Note: Patient present for Thyroid Cancer follow up visit. Health Communications Specialist Required: No Accompanied by: Self / Same As Patient Allergies lactose Adverse Reaction (Severe, Verified 01/20/23 10:33) Abdominal Pain shrimp Allergy (Severe, Uncoded 09/04/22 08:48) Anaphylaxis Medication List - Last Reconciled 01/20/23 by Carlos Morgan MD albuterol sulfate 90 mcg/actuation 2 puffs inhalation Q4-6H PRN 30 days B-complex with vitamin C 1 cap PO DAILY fluticasone furoate-vilanterol 200-25 mcg/dose (Breo Ellipta) 1 inh inhalation DAILY 30 days fluticasone propionate 50 mcg/actuation 1 spray intranasal DAILY ipratropium-albuterol 0.5 mg-3 mg(2.5 mg base)/3 mL 3 mL inhalation Q4-6H PRN 30 days levothyroxine 150 mcg PO DAILY nebulizers (Airs Disposable Nebulizer misc) As directed omeprazole 20 mg PO DAILY sertraline 25 mg PO DAILY 90 days sertraline 50 mg PO DAILY trazodone 25 mg PO DAILY HPI HPI Comments History of Present Illness Details 47 yo female today for fup visit, for thryoid cancer , postsurgical hypothyroidism She feels well. Has not been checking blood sugars. She is currently on levothyroxine 150 mcg QD She has type 2 diabetes she is diet controlled only. 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 she also had NTMNG diagnosed on 2006 she had FNA which was atypical she had total thyroidectomy on 02/2008 at [facility] . Pathology showed papillary microcarcinoma , She did not require MCLAUGHLIN ablation. . 100% compliance with LT4, good method of administration. She also has Gastritis, low vitmamin D, iron deficiency anemia. Denies cold intolerance, + heat intolerance, she has gained weight. denies diarrhea, + constipation, + imsomnia, + extreme fatigue, denies dry skin, dysphagia, dyspnea, dysphonia, tremors, palpitations, irritability, anxiety. Family History: mother has hypothyroidism. She had total thryoidectomy on 02/24/[address] Urias, histology report showed left side papillary microcarcinoma size 0.8 cm, LN 0/7. stage is 1( PT1, N0, Mx) US neck 01/05/2019 1. Right level 2 lymph node which measures 1.1 x 0.5 x 1.0 cm. This lymph node demonstrates a normal fatty hilum. 2. Right level 2 lymph node which measures 1.8 x 0.6 x 1.3 cm. A normal fatty hilum is not clearly identified in this lymph node. 3. Left level 2 lymph node which measures 0.8 x 0.6 x 1.1 cm and demonstrates a normal-appearing fatty hilum. 4. Left level 3 lymph node which measures 1.5 x 0.4 x 0.9 cm and demonstrates a normal appearing fatty hilum. Was attempted sent to Dr. Ballesteros in [place] for biopsy of normal level [address] Ballesteros does not accept her insurance Laboratory Tests 07/04/20 07/04/20 07/04/20 10:38 10:38 10:38 Hgb 15.0 Hct 46.7 Sodium 140 Potassium 4.3 Creatinine 0.80 Fasting Glucose 116 H Estimat Average Gl ucose 108 Hemoglobin A1c % 5.4 Calcium 9.2 AST 17 ALT 23 Alkaline Phosphata se 65 Albumin 4.4 Triglycerides 205 Cholesterol 208 LDL Cholesterol Di rect LDL Cholesterol, C alc 119 HDL Cholesterol 48 TSH 0.03 L Free T4 1.43 Thyroglobulin Urine Creatinine Urine Microalbumin Microalb/Creat Rat io Thyroglobulin Anti body 07/04/20 07/04/20 07/04/20 10:38 10:38 10:38 Hgb Hct Sodium Potassium Creatinine Fasting Glucose Estimat Average Gl ucose Hemoglobin A1c % Calcium AST ALT Alkaline Phosphata se Albumin Triglycerides Cholesterol LDL Cholesterol Di rect 129 H LDL Cholesterol, C alc HDL Cholesterol TSH Free T4 Thyroglobulin <0.1 Urine Creatinine 228.29 Urine Microalbumin 32.0 Microalb/Creat Rat io 14.0 Thyroglobulin Anti body <1 FNA of lymph nodes showed A.? Lymph node, right cervical level 5a, fine-needle aspiration biopsy (cytology): -Negative for malignant cells.? Comment:? Examination of a monolayer preparation and direct smear slides shows heterogeneous lymphoid population with no evidence of carcinoma. B.? Lymph node, left cervical level 1b, fine-needle aspiration: -Rare atypical epithelioid cells.? Comment:? Examination of direct smear slides shows heterogeneous lymphoid population, with a single group of crowded epithelioid cells with enlarged nuclei with anisonucleosis and nucleoli, not further characterized. A and B Flow cytometry:? Diagnosis: - Non-specific T-cell dominant profile. - Diagnostic features of a B-cell lymphoproliferative disorder not seen. Comments: CD45 bright, low side scatter (lymphoid) cells are 99% of total analyzed events. Of these, B-cells are 19% of lymphoid-gated events, have polytypic surface immunoglobulin light chain expression, and do not express aberrant antigens. A small population of polytypic CD20/ CD10 positive events consistent with germinal center sampling is seen. T-cells are 81 Note:? Thyroglobulin washout pending (both lymph nodes); was undetectable [facility] Medical History Chronic diarrhea Chronic fatigue Hearing loss Hearing loss Lymphadenopathy Moderate persistent asthma Moderate recurrent major depression Papillary microcarcinoma of thyroid Physical exam Post-surgical hypothyroidism Right-sided sensorineural hearing loss Vitamin D deficiency Surgical History History of partial hysterectomy Hx of carpal tunnel repair Hx of thyroidectomy Family History Father Diabetes mellitus Hypertension High cholesterol Mother Rheumatoid arthritis Lupus Hypothyroidism Hypertension Maternal Grandmother Bladder cancer Paternal Aunt Breast cancer Family/Other Mental health disorder Substance use disorder Social History Household Members: Children Housing: [facility] Are you a primary childbirth and infant care teacher to a significant other at home: No Do you presently have visiting nurse or other home services: No Alcohol intake: current Alcohol intake frequency: a few times a month Alcohol type: wine and hard liquor Patient Tobacco Use Status: Never used Tobacco e-Cigarette/Vaping Use: Never Used Second Hand Smoke Exposure: No service: No Current occupational status: employed Current occupational exposures/hazards: No Cognitive needs: No Hearing needs: No Vision needs: Yes Physical Exam Vital Signs: Last Vital Signs Pulse 74 01/20/23 10:30 BP 126/86 01/20/23 10:30 BMI result Body Mass Index 37.7 Const Other: Healed scar status post thyroidectomy. There is no cervical adenopathy palpated. Reflexes 2+ DTR Assessment & Plan Assessment & Plan (1) Papillary microcarcinoma of thyroid: Code(s): C73 - Malignant neoplasm of thyroid gland Plan: This is a 48-year-old female with a history of thyroidectomy with discovery of 0.8 cm papillary thyroid cancer. She is being replaced on 150 mcg of generic levothyroxine She appears to be clinically and biochemically euthyroid. Recent neck ultrasound showed the appearance of abnormal level 5 lymph node but thyroglobulin has been undetectable. The plan is to continue current therapy. Other issue involves FNA of abnormal lymph nodes at level 5A seen on neck ultrasound did not show any evidence of metastatic thyroid cancer but did show evidence of abnormal lymphocytes. The patient referred back to her primary care provider for this with possible referral by her primary care provider for f/u with Hematology/oncology to discuss LN aspirate . Also recommended ENT follow-up to further comment on the abnormal lymph nodes seen on neck ultrasound Orders: Orders Free T4 (Free Thyroxine) Today C73 - Malignant neoplasm of thyroid gland Thyroid Stimulating Hormone Today C73 - Malignant neoplasm of thyroid gland Thyroglobulin Today C73 - Malignant neoplasm of thyroid gland Coding Level of Care Code Est Pt Level 3 (17574) Diagnoses Papillary microcarcinoma of thyroid C73
[2023-01-20 10:30] VITALS: BP 126/86; PULSE 74; BMI 37.7
== END 2023-01-20 11:06 | disposition home or self-care (01) ==
PROVIDERS: PCP Internal Medicine; Visit Provider Internal Medicine Endocrinology, Diabetes & Metabolism
DX: C73 Malignant neoplasm of thyroid gland (principal)
CPT/HCPCS: 99213

== ENCOUNTER → 2023-01-20 10:26 | Outpatient (BNVA) | payer OTHER, SELFPAY | PROVIDERS: PCP Internal Medicine; Visit Provider Internal Medicine Endocrinology, Diabetes & Metabolism ==

== ENCOUNTER 2023-01-20 11:07 | Outpatient (REF) | payer OTHER, SELFPAY ==
[2023-01-20 15:23] LABS: Free T4 (Free Thyroxine) 1.22 ng/dL (0.71-1.85); Thyroid Stimulating Hormone 0.49 uIU/mL (0.32-4.0)
[2023-01-22 05:45] LABS: Thyroglobulin <0.1 ng/mL
== END 2023-01-20 11:08 | disposition home or self-care (01) ==
LOC: HO.10HDL 11:07
PROVIDERS: Visit Provider Internal Medicine Endocrinology, Diabetes & Metabolism
DX: C73 Malignant neoplasm of thyroid gland (principal)
CPT/HCPCS: 36415; 84432; 84439; 84443

== ENCOUNTER 2023-02-04 08:46 | Outpatient (AMB) | payer OTHER, SELFPAY ==
--- NOTE | 2023-02-04 08:56 | A.OFFVIS_ITS ---
Intake Vital Signs 02/04/23 09:04 Height 5 ft 1.5 in Weight 196 lb BMI 36.4 BP 148/87 H Blood Pressure Location Lt brachial Position Sitting Pulse 67 Intake Visit Reasons: f/u requested from pt Intake Note: Patient follow up for Patient cc: abdominal pain after eating with bloating, between diarrhea and constipation. Denies any other GI issues. Claims Adjuster Required: No Accompanied by: Self / Same As Patient Allergies lactose Adverse Reaction (Severe, Verified 02/04/23 08:59) Abdominal Pain shrimp Allergy (Severe, Uncoded 09/04/22 08:48) Anaphylaxis Medication List - Last Reconciled 02/04/23 by CONSTANTIN Gutierrez-Aubrey albuterol sulfate 90 mcg/actuation 2 puffs inhalation Q4-6H PRN 30 days B-complex with vitamin C 1 cap PO DAILY fluticasone furoate-vilanterol 200-25 mcg/dose (Breo Ellipta) 1 inh inhalation DAILY 30 days fluticasone propionate 50 mcg/actuation 1 spray intranasal DAILY guselkumab (Tremfya) mg subcut ipratropium-albuterol 0.5 mg-3 mg(2.5 mg base)/3 mL 3 mL inhalation Q4-6H PRN 30 days levothyroxine 150 mcg PO DAILY nebulizers (Airs Disposable Nebulizer misc) As directed omeprazole 20 mg PO DAILY sertraline 100 mg PO DAILY trazodone 25 mg PO DAILY HPI HPI Comments History of Present Illness Details A 48 y/o female seen 08/2021- sx are getting worse-diarrhea or constipation, does not feel like releases when poop medicine not working- doesn't know what medicine- then recalls dicyclomine she did not feel was helpful at all so she discontinued If she eats she has a BM - Last colonoscopy 3 years ago @ [facility]-recommended low FODMAP She knows when stomach is anxiety related- No complaints of nausea, vomiting, abdominal pain, hematemesis, hematochezia fev er or chills PFSH Medical History Chronic diarrhea Chronic fatigue Hearing loss Hearing loss Lymphadenopathy Moderate persistent asthma Moderate recurrent major depression Papillary microcarcinoma of thyroid Physical exam Post-surgical hypothyroidism Right-sided sensorineural hearing loss Vitamin D deficiency Surgical History Hx of carpal tunnel repair History of partial hysterectomy Hx of thyroidectomy Family History Father Diabetes mellitus Hypertension High cholesterol Mother Rheumatoid arthritis Lupus Hypothyroidism Hypertension Maternal Grandmother Bladder cancer Paternal Aunt Breast cancer Family/Other Mental health disorder Substance use disorder Social History Household Members: Children Housing: [facility] Are you a primary primary care physician to a significant other at home: No Do you presently have visiting nurse or other home services: No Alcohol intake: current Alcohol intake frequency: a few times a month Alcohol type: wine and hard liquor Patient Tobacco Use Status: Never used Tobacco e-Cigarette/Vaping Use: Never Used Second Hand Smoke Exposure: No service: No Current occupational status: employed Current occupational exposures/hazards: No Cognitive needs: No Hearing needs: No Vision needs: Yes Review of Systems Const All systems reviewed & are unremarkable except as noted in HPI and below Card Denies chest pain and Denies dyspnea Resp Denies dyspnea GI Denies abdominal pain, Denies hematochezia, Reports constipation, Reports GI cramping and Reports loose stools Psych Reports anxiety and Reports other (Stress) Physical Exam Vital Signs: Last Vital Signs Pulse 67 02/04/23 09:04 BP 148/87 H 02/04/23 09:04 BMI result Body Mass Index 36.4 Const General: cooperative, healthy appearing, comfortable and no acute distress Orientation/consciousness: patient oriented x3 Limitations: no limitations Eyes Sclerae: sclerae normal Resp Effort & Inspection: normal respiratory effort and able to speak in complete sentences Auscultation: clear to auscultation bilaterally, no rales, no rhonchi and no wheezes Cardio Rate: regular rate Rhythm: regular rhythm Heart sounds: S1 normal heart sound present and S2 normal heart sound present GI Palpation (GI): nontender Skin General skin exam: no rashes or lesions noted Neuro General: patient oriented x3 Extrem General: Yes full ROM Psych Appearance: well kempt Mental Status: mental status grossly normal Speech and movement: Clear speech present Affect: normal affect Thought process: Normal thought process present Thought content: Normal thought content present Insight: Good insight present (Psych) Judgement: Good judgement present (Psych) Assessment & Plan Assessment & Plan (1) History of IBS: Code(s): Z87.19 - Personal history of other diseases of the digestive system Plan: Food diary Citrucel Stress reduction Medications: New methylcellulose (laxative) (Citrucel) 500 mg PO TID 30 days 90 tabs 5RF Patient Instructions: food diary-try to ID culprit citrucel- call with question or concerns Coding Level of Care Code Est Pt Level 3 (49282) Diagnoses History of IBS Z87.19 Time Spent (min) 30
[2023-02-04 09:04] VITALS: BP 148/87; PULSE 67; BMI 36.4
== END 2023-02-04 10:04 | disposition home or self-care (01) ==
PROVIDERS: PCP Internal Medicine; Visit Provider Physician Assistant
DX: Z87.19 Personal history of other diseases of the digestive system (principal)
CPT/HCPCS: 99213

== ENCOUNTER → 2023-02-04 08:46 | Outpatient (BNVA) | payer OTHER, SELFPAY | PROVIDERS: PCP Internal Medicine; Visit Provider Physician Assistant ==

== ENCOUNTER 2023-04-02 13:48 | Outpatient (AMB) | payer OTHER, SELFPAY ==
--- NOTE | 2023-04-02 13:52 | MHC.OFFVIS ---
Intake Vital Signs 04/02/23 13:53 Height 5 ft 1.5 in Weight 192 lb 14.472 oz BMI 35.9 BP 122/77 Blood Pressure Location Rt brachial Position Sitting Pulse 69 Pulse Source Doppler Pulse Oximetry (%) 96 Oxygen Delivery Method Room Air Intake Visit Reasons: Shortness of breath Allergies lactose Adverse Reaction (Severe, Verified 04/02/23 13:56) Abdominal Pain shrimp Allergy (Severe, Uncoded 09/04/22 08:48) Anaphylaxis HPI Shortness of breath HPI Details 48-year-old lady, nonsmoker, with underlying history of asthma, well controlled on Breo until patient has ran out of it several weeks prior. She denies any recent exacerbations. She rarely requires to use albuterol MDI. She uses Flonase for underlying environmental allergies. [facility] Medical History Chronic diarrhea Chronic fatigue Hearing loss Hearing loss Lymphadenopathy Moderate persistent asthma Moderate recurrent major depression Papillary microcarcinoma of thyroid Physical exam Post-surgical hypothyroidism Right-sided sensorineural hearing loss Vitamin D deficiency Surgical History Hx of carpal tunnel repair History of partial hysterectomy Hx of thyroidectomy Family History Father Diabetes mellitus Hypertension High cholesterol Mother Rheumatoid arthritis Lupus Hypothyroidism Hypertension Maternal Grandmother Bladder cancer Paternal Aunt Breast cancer Family/Other Mental health disorder Substance use disorder Social History Household Members: Children [facility] Are you a primary child care education coordinator to a significant other at home: No Do you presently have visiting nurse or other home services: No Alcohol intake: current Alcohol intake frequency: a few times a month Alcohol type: wine and hard liquor Patient Tobacco Use Status: Never used Tobacco e-Cigarette/Vaping Use: Never Used Second Hand Smoke Exposure: No service: No Current occupational status: employed Current occupational exposures/hazards: No Cognitive needs: No Hearing needs: No Vision needs: Yes Review of Systems Const Denies daytime sleepiness, Denies excessive sweating, Denies fatigue, Denies fever(s), Denies lethargy, Denies malaise, Denies night sweats, Denies snoring and Denies weight loss Eyes Denies blurry vision and Denies itchy eyes ENT Denies nasal congestion, Denies post nasal drip, Denies sinus pain, Denies sinus pressure and Denies other ( Thrush) Card Denies chest pain, Denies pedal edema, Denies dyspnea, Denies orthopnea and Denies paroxysmal nocturnal dyspnea Resp Denies cough, Denies hemoptysis, Denies excessive phlegm production, Denies dyspnea, Denies snoring and Denies wheezing GI Denies abdominal pain and Denies heartburn Musc Denies myalgias, Denies arthralgias and Denies joint swelling Skin/Breast Denies rash Neuro Denies memory loss and Denies seizure-like activity Psych Denies abnormal sleep pattern, Denies anxiety and Denies memory loss Endo Denies excessive sweating, Denies fatigue and Denies heat intolerance Rj/Lymph Denies easy bruising Aller/Immun Denies itchy eyes, Denies seasonal rhinorrhea and Denies wheezing Physical Exam Vital Signs: Last Vital Signs Pulse 69 04/02/23 13:53 BP 122/77 04/02/23 13:53 Pulse Ox 96 04/02/23 13:53 Oxygen Delivery Method Room Air 04/02/23 13:53 BMI result Body Mass Index 35.9 Const General: no acute distress and alert Nutritional Appearance: not obese Orientation/consciousness: Other orientation findings ( oriented) HEENT Head: Yes atraumatic Eyes General: appearance normal, both eyes and all related structures Sclerae: sclerae normal EOM: EOMs intact bilaterally Neck Neck: Yes supple Lymphatic: no lymphadenopathy noted Resp Effort & Inspection: normal respiratory effort and no use of accessory muscles Auscultation: clear to auscultation bilaterally Cardio Rate: regular rate Rhythm: regular rhythm Heart sounds: no gallops, no murmurs and no rubs Skin General skin exam: other ( warm) Extrem General: No clubbing, No cyanosis and No edema Assessment & Plan Assessment & Plan (1) Asthma: Code(s): J45.909 - Unspecified asthma, uncomplicated Plan: Well controlled on Breo and albuterol MDI. Continue current regimen. (2) Environmental allergies: Code(s): Z91.09 - Other allergy status, other than to drugs and biological substances Plan: Well controlled on nasal Flonase. Continue current regimen. Medications: Refilled fluticasone furoate-vilanterol 200-25 mcg/dose (Breo Ellipta) 1 inh inhalation DAILY 1 ea 12RF 30 days Coding Level of Care Code Est Pt Level 4 (42973) Diagnoses Asthma J45.909 Environmental allergies Z91.09
[2023-04-02 13:53] VITALS: BP 122/77; PULSE 69; O2SAT 96; BMI 35.9
== END 2023-04-02 14:21 | disposition home or self-care (01) ==
PROVIDERS: PCP Internal Medicine; Visit Provider Internal Medicine Pulmonary Disease
DX: J45.909 Unspecified asthma, uncomplicated (principal); Z91.09 Other allergy status, other than to drugs and biological substances
CPT/HCPCS: 99214

== ENCOUNTER → 2023-04-02 13:48 | Outpatient (BNVA) | payer OTHER, SELFPAY | PROVIDERS: PCP Internal Medicine; Visit Provider Internal Medicine Pulmonary Disease ==

== ENCOUNTER 2023-07-21 08:05 | Outpatient (REF) | payer OTHER, SELFPAY ==
[2023-07-21 12:21] LABS: Free T4 (Free Thyroxine) 1.16 ng/dL (0.71-1.85)
[2023-07-21 12:24] LABS: Alanine Aminotransferase 19 U/L (0-31); Albumin Level 4.1 g/dL (3.5-5.0); Alkaline Phosphatase 59 U/L (39-117); Anion Gap 12 (12-20); Aspartate Amino Transferase 15 U/L (5-31); Bilirubin Total 0.3 mg/dL (0.0-1.0); Blood Urea Nitrogen 11 mg/dL (9-16); Carbon Dioxide 29 mmol/L (22-29); Chloride 103 mmol/L (96-108); Cholesterol 175 mg/dL (<200); Estimated Glomerular Filt Rate > 60; Glucose Fasting 120 mg/dL (60-99); HDL Cholesterol 35 mg/dL (>40); LDL Cholesterol Calculated 78 mg/dL (<100); Potassium 3.7 mmol/L (3.3-5.1); Sodium 140 mmol/L (135-145); Thyroid Stimulating Hormone 2.18 uIU/mL (0.32-4.0); Total Protein 7.4 g/dL (6.5-8.0); Triglycerides 311 mg/dL (<150)
[2023-07-23 19:34] LABS: TS Negative Control Passed; TS Panel A 0; TS Panel B 0; TS Positive Control Passed; TSpotTB Negative (Negative)
[2023-07-25 06:44] LABS: Thyroglobulin Antibody <1 IU/mL (<=1); Thyroglobulin Level <0.1 ng/mL
== END 2023-07-21 08:06 | disposition home or self-care (01) ==
LOC: HO.WFDLDS 08:05
PROVIDERS: Referring Provider Internal Medicine Endocrinology, Diabetes & Metabolism; Visit Provider Internal Medicine
DX: Z11.1 Encounter for screening for respiratory tuberculosis (principal); E66.9 Obesity, unspecified; C73 Malignant neoplasm of thyroid gland
CPT/HCPCS: 36415; 80053; 80061; 84432; 84439; 84443; 86481; 86800

== ENCOUNTER 2023-07-21 15:55 | Outpatient (AMB) | payer OTHER, SELFPAY ==
--- NOTE | 2023-07-21 16:00 | MHC.OFFVIS ---
Intake Vital Signs 07/21/23 16:03 Height 5 ft 1.5 in Weight 195 lb 5.273 oz BMI 36.3 BP 130/88 Blood Pressure Location Rt brachial Position Sitting Pulse 76 Pulse Source Pulse Oximeter Intake Visit Reasons: f/u thyroid cancer-confirmed Intake Note: Patient presents today for Thyroid Cancer follow up. Ventilating Equipment Installer Required: No Accompanied by: Self / Same As Patient Allergies lactose Adverse Reaction (Severe, Verified 07/21/23 16:04) Abdominal Pain shrimp Allergy (Severe, Uncoded 07/21/23 16:04) Anaphylaxis HPI HPI Comments History of Present Illness Details 47 yo female today for fup visit, for thryoid cancer , postsurgical hypothyroidism She feels well. Has not been checking blood sugars. She is currently on levothyroxine 125 mcg QD She has type 2 diabetes she is diet controlled only. 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 she also had NTMNG diagnosed on 2006 she had FNA which was atypical she had total thyroidectomy on 02/2008 at [facility] . Pathology showed papillary microcarcinoma , She did not require MCLAUGHLIN ablation. . 100% compliance with LT4, good method of administration. She also has Gastritis, low vitmamin D, iron deficiency anemia. Denies cold intolerance, + heat intolerance, she has gained weight. denies diarrhea, + constipation, + imsomnia, + extreme fatigue, denies dry skin, dysphagia, dyspnea, dysphonia, tremors, palpitations, irritability, anxiety. Family History: mother has hypothyroidism. She had total thryoidectomy on 02/24/[address] Urias, histology report showed left side papillary microcarcinoma size 0.8 cm, LN 0/7. stage is 1( PT1, N0, Mx) US neck 01/05/2019 1. Right level 2 lymph node which measures 1.1 x 0.5 x 1.0 cm. This lymph node demonstrates a normal fatty hilum. 2. Right level 2 lymph node which measures 1.8 x 0.6 x 1.3 cm. A normal fatty hilum is not clearly identified in this lymph node. 3. Left level 2 lymph node which measures 0.8 x 0.6 x 1.1 cm and demonstrates a normal-appearing fatty hilum. 4. Left level 3 lymph node which measures 1.5 x 0.4 x 0.9 cm and demonstrates a normal appearing fatty hilum. Was attempted sent to Dr. Ballesteros in [place] for biopsy of normal level [address] Ballesteros does not accept her insurance Laboratory Tests 07/04/20 07/04/20 07/04/20 10:38 10:38 10:38 Hgb 15.0 Hct 46.7 Sodium 140 Potassium 4.3 Creatinine 0.80 Fasting Glucose 116 H Estimat Average Gl ucose 108 Hemoglobin A1c % 5.4 Calcium 9.2 AST 17 ALT 23 Alkaline Phosphata se 65 Albumin 4.4 Triglycerides 205 Cholesterol 208 LDL Cholesterol Di rect LDL Cholesterol, C alc 119 HDL Cholesterol 48 TSH 0.03 L Free T4 1.43 Thyroglobulin Urine Creatinine Urine Microalbumin Microalb/Creat Rat io Thyroglobulin Anti body 07/04/20 07/04/20 07/04/20 10:38 10:38 10:38 Hgb Hct Sodium Potassium Creatinine Fasting Glucose Estimat Average Gl ucose Hemoglobin A1c % Calcium AST ALT Alkaline Phosphata se Albumin Triglycerides Cholesterol LDL Cholesterol Di rect 129 H LDL Cholesterol, C alc HDL Cholesterol TSH Free T4 Thyroglobulin <0.1 Urine Creatinine 228.29 Urine Microalbumin 32.0 Microalb/Creat Rat io 14.0 Thyroglobulin Anti body <1 FNA of lymph nodes showed A.? Lymph node, right cervical level 5a, fine-needle aspiration biopsy (cytology): -Negative for malignant cells.? Comment:? Examination of a monolayer preparation and direct smear slides shows heterogeneous lymphoid population with no evidence of carcinoma. B.? Lymph node, left cervical level 1b, fine-needle aspiration: -Rare atypical epithelioid cells.? Comment:? Examination of direct smear slides shows heterogeneous lymphoid population, with a single group of crowded epithelioid cells with enlarged nuclei with anisonucleosis and nucleoli, not further characterized. A and B Flow cytometry:? Diagnosis: - Non-specific T-cell dominant profile. - Diagnostic features of a B-cell lymphoproliferative disorder not seen. Comments: CD45 bright, low side scatter (lymphoid) cells are 99% of total analyzed events. Of these, B-cells are 19% of lymphoid-gated events, have polytypic surface immunoglobulin light chain expression, and do not express aberrant antigens. A small population of polytypic CD20/ CD10 positive events consistent with germinal center sampling is seen. T-cells are 81 Note:? Thyroglobulin washout was undetectable in both lymph nodes [facility] Medical History Chronic diarrhea Chronic fatigue Hearing loss Hearing loss Lymphadenopathy Moderate persistent asthma Moderate recurrent major depression Papillary microcarcinoma of thyroid Physical exam Post-surgical hypothyroidism Right-sided sensorineural hearing loss Vitamin D deficiency Surgical History Hx of carpal tunnel repair History of partial hysterectomy Hx of thyroidectomy Family History Father Diabetes mellitus Hypertension High cholesterol Mother Rheumatoid arthritis Lupus Hypothyroidism Hypertension Maternal Grandmother Bladder cancer Paternal Aunt Breast cancer Family/Other Mental health disorder Substance use disorder Social History Household Members: Children [facility] Are you a primary hemodialysis patient care specialist to a significant other at home: No Do you presently have visiting nurse or other home services: No Alcohol intake: current Alcohol intake frequency: a few times a month Alcohol type: wine and hard liquor Patient Tobacco Use Status: Never used Tobacco e-Cigarette/Vaping Use: Never Used Second Hand Smoke Exposure: No service: No Current occupational status: employed Current occupational exposures/hazards: No Cognitive needs: No Hearing needs: No Vision needs: Yes Physical Exam Vital Signs: BMI result Body Mass Index 36.3 Const Other: Healed scar status post thyroidectomy. There is no cervical adenopathy palpated. Reflexes 2+ DTR Assessment & Plan Assessment & Plan (1) Papillary microcarcinoma of thyroid: Code(s): C73 - Malignant neoplasm of thyroid gland Plan: This is a 48-year-old female with a history of thyroidectomy with discovery of 0.8 cm papillary thyroid cancer. She is being replaced on 150 mcg of generic levothyroxine She appears to be clinically and biochemically euthyroid. Thyroglobulin level is pending Recent neck ultrasound showed the appearance of abnormal level 5 lymph node but thyroglobulin has been undetectable. Lymph node biopsies were negative for metastatic disease and thyroglobulin washout was negative The plan is to continue current therapy. Assuming thyroglobulin is undetectable, we will continue to follow. Coding Level of Care Code Est Pt Level 3 (89451) Diagnoses Papillary microcarcinoma of thyroid C73
[2023-07-21 16:03] VITALS: BP 130/88; PULSE 76; BMI 36.3
== END 2023-07-21 16:24 | disposition home or self-care (01) ==
PROVIDERS: PCP Internal Medicine; Visit Provider Internal Medicine Endocrinology, Diabetes & Metabolism
DX: C73 Malignant neoplasm of thyroid gland (principal)
CPT/HCPCS: 99213

== ENCOUNTER 2023-08-15 08:40 | Outpatient (REF) | payer OTHER, SELFPAY ==
--- NOTE | ~2023-08-15 | MM_ITS ---
EXAMINATION: MM SCREENING DIGITAL BREAST TOMOSYNTHESIS, BILATERAL CLINICAL INFORMATION: Screening. Asymptomatic. COMPARISON: Mammography: This study is compared with prior exams dating back to 2019. TECHNIQUE: Digital breast tomosynthesis is performed in both the craniocaudal and mediolateral oblique views along with computer-aided detection (CAD). Synthesized 2D images are generated from the tomosynthesis. FINDINGS: There are scattered areas of fibroglandular density (ACR BI-RADS breast composition Category b). There are no significant masses, abnormal calcifications, or other abnormalities. There is a tissue marker in the medial aspect of the left breast from prior benign percutaneous biopsy. MM/MM tomosynthesis screening BI IMPRESSION: No mammographic evidence of malignancy. ASSESSMENT: BI-RADS BI-RADS 2 - Benign Findings RECOMMENDATION: Routine annual mammography screening. 1 year F/U This examination should not preclude the clinical evaluation of a suspicious palpable abnormality. This patient's information was entered into a reminder system with a target due date for their next mammogram.
== END 2023-08-15 08:41 | disposition home or self-care (01) ==
LOC: HO.MAMMO 08:40
PROVIDERS: PCP Internal Medicine; Visit Provider Internal Medicine
DX: Z12.31 Encounter for screening mammogram for malignant neoplasm of breast (principal)
CPT/HCPCS: 77063; 77067

== ENCOUNTER → 2023-08-15 08:45 | Outpatient (BNV) | payer OTHER, SELFPAY | PROVIDERS: PCP Internal Medicine; Visit Provider Radiology Diagnostic Radiology | DX: Z12.31 Encounter for screening mammogram for malignant neoplasm of breast (principal) | CPT/HCPCS: 77063; 77067 ==

== ENCOUNTER 2023-09-07 09:36 | Outpatient (AMB) | payer OTHER, SELFPAY ==
[2023-09-07 09:47] VITALS: BP 140/86; PULSE 68; O2SAT 97; BMI 35.3
--- NOTE | 2023-09-07 09:47 | MHC.PC.OV ---
Vital Signs 09/07/23 09:47 Height 5 ft 1.5 in Weight 190 lb BMI 35.3 BP 140/86 H Blood Pressure Location Lt brachial Position Sitting Pulse 68 Pulse Source Pulse Oximeter Pulse Oximetry (%) 97 Oxygen Delivery Method Room Air Intake Visit Reasons: Annual Exam Intake Note: Patient is here today for a physical. System Planning Engineer Required: No Accompanied by: Self / Same As Patient Allergies lactose Adverse Reaction (Severe, Verified 09/07/23 09:51) Abdominal Pain shrimp Allergy (Severe, Uncoded 09/07/23 09:51) Anaphylaxis Medication List - Last Reconciled 09/07/23 by Rica Isaacs MD albuterol sulfate 90 mcg/actuation 2 puffs inhalation Q4-6H PRN 30 days bupropion HCl XL 300 mg PO QAM calcium citrate-vitamin D3 500 mg-12.5 mcg (500 unit) tabs PO cholecalciferol (vitamin D3) 25 mcg PO DAILY fluticasone furoate-vilanterol 200-25 mcg/dose (Breo Ellipta) 1 inh inhalation DAILY 30 days fluticasone propionate 50 mcg/actuation 1 spray intranasal DAILY ipratropium-albuterol 0.5 mg-3 mg(2.5 mg base)/3 mL 3 mL inhalation Q4-6H PRN 30 days levothyroxine 125 mcg PO DAILY methylcellulose (laxative) (Citrucel) 500 mg PO TID 30 days nebulizers (Airs Disposable Nebulizer misc) As directed omeprazole 20 mg PO DAILY thyroid (pork) ([place] Thyroid) 90 mg PO DAILY trazodone 25 mg PO DAILY Tobacco use date assessed: 09/07/23 Dental Screening Dental Screen Date: 09/07/23 Did you have a dental visit in the last 12 months?: Yes Did you have a dental problem in the last 6 months where you did not have access to dental care?: No Was dental information given to patient?: Patient has dentist HPI HPI Comments History of Present Illness Details This is a 48-year-old female with moderate major depression and diabetes that comes for her physical exam. Depression well controlled with bupropion. Has fasting blood glucose elevated but does not require any medication. Last mammogram was July 2023 and was normal. Last colonoscopy was 4 years ago at [facility]. No need for Pap smears due to hysterectomy. Denies any chest pain or shortness of breath. Aware of her lab results. Will start a diet for her low triglycerides. [facility] Medical History (Updated 09/07/23 @ 12:13 by Rica Isaacs MD) Psoriatic arthritis Hearing loss Right-sided sensorineural hearing loss Moderate persistent asthma Chronic diarrhea Chronic fatigue Moderate recurrent major depression Lymphadenopathy Physical exam Hearing loss Vitamin D deficiency Post-surgical hypothyroidism Papillary microcarcinoma of thyroid Surgical History Hx of carpal tunnel repair History of partial hysterectomy Hx of thyroidectomy Family History (Updated 09/07/23 @ 10:12 by Rica Isaacs MD) Father Diabetes mellitus Hypertension High cholesterol Mother Rheumatoid arthritis Lupus Hypothyroidism Hypertension Maternal Grandmother Bladder cancer Paternal Aunt Breast cancer Family/Other Mental health disorder Substance use disorder Social History Household Members: Children [facility] Are you a primary care trainer to a significant other at home: No Do you presently have visiting nurse or other home services: No Alcohol intake: current Alcohol intake frequency: a few times a month Alcohol type: wine and hard liquor Patient Tobacco Use Status: Never used Tobacco e-Cigarette/Vaping Use: Never Used Second Hand Smoke Exposure: No service: No Current occupational status: employed Current occupational exposures/hazards: No Cognitive needs: No Hearing needs: No Vision needs: Yes Questionnaire PHQ-9 Over the last 2 weeks, how often have you been bothered by any of the following problems? 1. Little interest or pleasure in doing things: not at all 2. Feeling down, depressed, or hopeless: several days 3. Trouble falling or staying asleep, or sleeping too much: not at all 4. Feeling tired or having little energy: not at all 5. Poor appetite or overeating: not at all 6. Feeling bad about yourself - or that you are a failure or have let yourself or your family down: not at all 7. Trouble concentrating on things, such as reading the newspaper or watching television: not at all 8. Moving or speaking so slowly that other people could have noticed. Or the opposite - being so fidgety or restless that you have been moving around a lot more than usual: not at all 9. Thoughts that you would be better off or of hurting yourself in some way: not at all Total score: 1 Depression Screening Interpretation: Negative Depression Screening Done: Yes 72075 - PHQ-9 Billing: Yes Source: Developed by Drs. Carlos Meyer, Madelin Martinez, Paul Em and colleagues, with an educational ilsa from [employer]. Thrive Questionnaire Date Thrive assessed: 09/07/23 I am a: Patient What is your living situation today?: I have a steady place to live Within the past 12 months, did the food you bought not last and you didn't have the money to get more?: Never true Within the past 12 months, did you worry whether your food would run out before you got money to buy more?: Never true Do you have trouble paying for medicines?: No Do you have trouble getting transportation to medical appointments?: No Do you have trouble paying your heating and electricity bill?: No Do you have trouble taking care of your child, family member or friend?: No Do you have trouble with day-to-day activities such as bathing, preparing meals, shopping, managing finances, etc.?: No Are you currently unemployed and looking for a job?: No Are you interested in more education?: No Please select the resources that you would like help with: None Currently or been in a relationship where the following occur: no concerns reported THRIVE Score: 0 AUDIT C Alcohol Use Questionnaire (AUDIT-C) 1. How often do you have a drink containing alcohol?: Monthly or less 2. How many drinks containing alcohol do you have on a typical day when you are drinking?: 1 or 2 3. How often do you have six or more drinks on one occasion?: Never Total Score: 1 Score Reviewed/Action Taken: Yes JB-7 AMB Questionnaire JB-7 Date JB - 7 assessed: 09/07/23 (patient existing condition/is being seen by therapist ) Feeling nervous, anxious, or on edge: 1 = Several days Not being able to stop or control worryin = Several days Worrying too much about different things: 0 = Not at all Trouble relaxin = Not at all Being so restless that it is hard to sit still: 0 = Not at all Becoming easily annoyed or irritable: 0 = Not at all Feeling afraid as if something awful might happen: 0 = Not at all Total JB-7 score (0-4 normal; 5-9 mild; 10-14 moderate; 15-21 severe): 2 Source: Developed by Drs. Carlos Meyer, Madelin Martinez, Paul Em and colleagues, with an educational ilsa from [employer]. JB-7 Assessment Billing JB-7 Assessment Tool: JB-7 Assessment 83581 Review of Systems Const All systems reviewed & are unremarkable except as noted in HPI and below Eyes Reports no additional complaints, Denies change in vision and Denies other visual disturbances Card Denies chest pain at rest, Denies chest pain with activity, Denies edema, Denies irregular heart rhythm, Denies claudication, Denies dyspnea, Denies dyspnea on exertion, Denies orthopnea, Denies paroxysmal nocturnal dyspnea and Denies slow heart rate Resp Denies cough, Denies dyspnea and Denies dyspnea on exertion GI Denies abdominal pain, Denies change in bowel habits, Denies excessive flatus, Denies nausea and Denies vomiting Physical exam (Primary Care) Vital Signs: Last Vital Signs Pulse 68 09/07/23 09:47 BP 140/86 H 09/07/23 09:47 Pulse Ox 97 09/07/23 09:47 Oxygen Delivery Method Room Air 09/07/23 09:47 BMI result Body Mass Index 35.3 Tobacco/Smoking Status: Tobacco use Status Tobacco use date assessed 09/07/23 09/07/23 09:49 Patient Tobacco Use Status Never used Tobacco 09/07/23 09:49 e-Cigarette/Vaping Use Never Used 09/07/23 09:49 PHQ-9: PHQ-9 Score PHQ-9: Total score 1 09/07/23 10:15 Depression Screening Interpretation: Negative Thrive Assessment: Date of Thrive Assessment Date Thrive assessed 09/07/23 09/07/23 09:49 Currently or been in a relationship where the following occur: no concerns reported Const Orientation/consciousness: patient oriented x3 HENMT Head: Yes normal to inspection, Yes normocephalic and Yes atraumatic Ears: external ears normal Eyes General: appearance normal, both eyes and all related structures Eyelids: Yes eyelids normal Conjunctivae: conjunctivae normal Neck Neck: Yes normal visual inspection and Yes supple Resp Effort & Inspection: normal respiratory effort Auscultation: clear to auscultation bilaterally Cardio Jugular venous distension: no JVD Rate: regular rate Rhythm: regular rhythm Heart sounds: S1 normal heart sound present and S2 normal heart sound present GI Inspection: Yes normal to inspection Palpation (GI): Soft to palpation and nontender Auscultation: normal bowel sounds Skin General skin exam: no rashes or lesions noted Neuro General: patient oriented x3 and no focal motor deficits Extrem General: Yes full ROM Psych Appearance: grossly normal Assessment and Plan Assessment & Plan (1) Physical exam: Code(s): Z00.00 - Encounter for general adult medical examination without abnormal findings Plan: Repeat in a year. (2) Moderate recurrent major depression: Code(s): F33.1 - Major depressive disorder, recurrent, moderate Plan: Continue bupropion. (3) Diabetes: Code(s): E11.9 - Type 2 diabetes mellitus without complications Plan: Start low-carbohydrate diet. A1c goal is equal or less than 7%. No need for medications at the moment. Orders: Orders Lipid Panel 6 Months E78.5 - Hyperlipidemia, unspecified Vitamin D 25-OH Total 6 Months E55.9 - Vitamin D deficiency, unspecified Comprehensive [place]. Panel Fast 6 Months E11.9 - Type 2 diabetes mellitus without complications Hemoglobin A1c 6 Months E11.40 - Type 2 diabetes mellitus with diabetic neuropathy, unspecified, E11.9 - Type 2 diabetes mellitus without complications Medications: New Ventolin HFA 90 mcg/actuation (albuterol sulfate) 2 puffs inhalation Q6H PRN 18 grams 2RF shortness of breath or wheezing 30 days NS J45.909 - Unspecified asthma, uncomplicated Coding Level of Care Code Est Pt Prev Care 40-64y(98602) Diagnoses Physical exam Z00.00 Moderate recurrent major depression F33.1 Diabetes E11.9 Additional Codes JB-7 Assessment Billing - JB-7 Assessment Tool: JB-7 Assessment 13027 ([id number]) Time Spent (min) 33
== END 2023-09-07 10:26 | disposition home or self-care (01) ==
PROVIDERS: PCP Internal Medicine; Visit Provider Internal Medicine
DX: Z00.00 Encounter for general adult medical examination without abnormal findings (principal); E11.9 Type 2 diabetes mellitus without complications; F33.1 Major depressive disorder, recurrent, moderate
CPT/HCPCS: 99396

== ENCOUNTER 2023-10-16 11:09 | Outpatient (AMB) | payer OTHER, SELFPAY ==
[2023-10-16 11:38] VITALS: BP 124/84; PULSE 72; RESP 14; TEMP 36.6; O2SAT 97; BMI 35.9
--- NOTE | 2023-10-16 11:38 | AM.OFFWIN_ITS ---
Intake Vital Signs 10/16/23 11:38 Height 5 ft 1.5 in Weight 193 lb BMI 35.9 BP 124/84 Blood Pressure Location Rt brachial Position Sitting Respiration 14 Pulse 72 Pulse Source Pulse Oximeter Temp 98 F Temp Source Temporal Artery Scan Pulse Oximetry (%) 97 Oxygen Delivery Method Room Air Intake Visit Reasons: Sinus infection Patient Tobacco Use Status: Never used Tobacco Hospice/Home Health Aide Required: No Accompanied by: Self / Same As Patient Allergies Seasonal Allergies Allergy (Intermediate, Verified 10/16/23 12:03) Itchy Eyes lactose Adverse Reaction (Severe, Verified 10/16/23 12:03) Abdominal Pain shrimp Allergy (Severe, Uncoded 09/07/23 09:51) Anaphylaxis Medication List - Last Reconciled 10/16/23 by Aylin Emmanuel, [facility]- albuterol sulfate 90 mcg/actuation 2 puffs inhalation Q4-6H PRN 30 days bupropion HCl XL 300 mg PO QAM calcium citrate-vitamin D3 500 mg-12.5 mcg (500 unit) tabs PO cholecalciferol (vitamin D3) 25 mcg PO DAILY fluticasone furoate-vilanterol 200-25 mcg/dose (Breo Ellipta) 1 inh inhalation DAILY 30 days fluticasone propionate 50 mcg/actuation 1 spray intranasal DAILY ipratropium-albuterol 0.5 mg-3 mg(2.5 mg base)/3 mL 3 mL inhalation Q4-6H PRN 30 days levothyroxine 125 mcg PO DAILY methylcellulose (laxative) (Citrucel) 500 mg PO TID 30 days nebulizers (Airs Disposable Nebulizer misc) As directed omeprazole 20 mg PO DAILY trazodone 25 mg PO DAILY Ventolin HFA 90 mcg/actuation (albuterol sulfate) 2 puffs inhalation Q6H PRN 30 days NS Do you need a note to return to daycare/school/sports/work: No HPI HPI Comments History of Present Illness Details Here today with concern for sinus infection allergy sx since Mother's Day Now with green thick nasal mucous, presure in right side of face right ear feels blocked No at home tx. Denies fever, chills, sore throat. [facility] Medical History (Updated 09/07/23 @ 12:13 by Rica Isaacs MD) Psoriatic arthritis Hearing loss Right-sided sensorineural hearing loss Moderate persistent asthma Chronic diarrhea Chronic fatigue Moderate recurrent major depression Lymphadenopathy Physical exam Hearing loss Vitamin D deficiency Post-surgical hypothyroidism Papillary microcarcinoma of thyroid Surgical History Hx of carpal tunnel repair History of partial hysterectomy Hx of thyroidectomy Family History (Updated 09/07/23 @ 10:12 by Rica Isaacs MD) Father Diabetes mellitus Hypertension High cholesterol Mother Rheumatoid arthritis Lupus Hypothyroidism Hypertension Maternal Grandmother Bladder cancer Paternal Aunt Breast cancer Family/Other Mental health disorder Substance use disorder Social History Household Members: Children [facility] Are you a primary home health care case manager to a significant other at home: No Do you presently have visiting nurse or other home services: No Alcohol intake: current Alcohol intake frequency: a few times a month Alcohol type: wine and hard liquor Patient Tobacco Use Status: Never used Tobacco e-Cigarette/Vaping Use: Never Used Second Hand Smoke Exposure: No service: No Current occupational status: employed Current occupational exposures/hazards: No Cognitive needs: No Hearing needs: No Vision needs: Yes Review of Systems Const All systems reviewed & are unremarkable except as noted in HPI and below Physical Exam Vital Signs: Last Vital Signs Temp 98 F 10/16/23 11:38 Pulse 72 10/16/23 11:38 Resp 14 10/16/23 11:38 BP 124/84 10/16/23 11:38 Pulse Ox 97 10/16/23 11:38 Oxygen Delivery Method Room Air 10/16/23 11:38 BMI result Body Mass Index 35.9 Const Other: Awake alert NAD Sclera and conjunctiva clear bilat Nares patent, turbinates edematous and pale bilat right worse than left positive frontal and maxillary sinus tenderness with palpation on the right TM intact effusions bilat, right worse than left, loss of landmarks on the right MMM, pharynx WNL RRR LS CTAB Assessment & Plan Assessment & Plan (1) Acute bacterial sinusitis: Code(s): J01.90 - Acute sinusitis, unspecified; B96.89 - Other specified bacterial agents as the cause of diseases classified elsewhere Plan: . Medications: New amoxicillin-pot clavulanate 875-125 mg 1 tab PO BID 7 days 14 tabs 0RF Patient Instructions: What Is It? Sinuses are air-filled spaces behind the bones of the upper face: between the eyes and behind the forehead, nose and cheeks. The lining of the sinuses are made up of cells with tiny hairs on their surfaces called cilia. Other cells in the lining produce mucus. The mucus traps germs and pollutants and the cilia push the mucus out through narrow sinus openings into the nose. When the sinuses become inflamed or infected, the mucus thickens and clogs the openings to one or more sinuses. Fluid builds up inside the sinuses causing increased pressure. Also bacteria can become trapped, multiply and infect the lining. This is sinusitis. Prevention There are some measures you can take to decrease your risk of developing sinusitis. If you smoke cigarettes, you should quit. The smoke can irritate nasal passageways and increase the likelihood of infection. Nasal allergies can trigger sinus infections, too. By identifying the allergen (the substance causing the allergic reaction) and avoiding it, you can help prevent sinusitis. If you have congestion from a cold or allergies, the following may help to reduce the risk of developing sinusitis: Drink lots of water. This thins nasal secretions and keeps mucous membranes moist. Use steam to soothe nasal passages. Breathe deeply while standing in a hot shower, or inhale the vapor from a basin filled with hot water while holding a towel over your head. Avoid blowing your nose with great force, which can push bacteria into the sinuses. Some doctors advise periodic home nasal washings to clear secretions. This may help prevent, and also treat, sinus infections. Treatment Many sinus infections improve without treatment. However, several medications may speed recovery and reduce the chance that an infection will become chronic. Decongestants - Congestion often triggers sinus infections, and decongestants c an open the sinuses and allow them to drain. Several are available: Pseudoephedrine (Sudafed) is available without prescription, alone or in combination with other medications in multi-symptom cold and sinus remedies. Pseudoephedrine can cause insomnia, racing pulse and jitteriness. Do not use if you have high blood pressure or a heart condition. Phenylephrine (such as Sudafed PE) is an alternative [id number] oral decongestant. If you take products containing oral phenylephrine, check with the pharmacist to be certain there is no interaction with other medications you take. Oxymetazoline (Afrin, Dristan and others) and phenylephrine (Yovani-Synephrine and others) are found in nasal sprays. They are effective and may be less likely to cause the side effects seen with pseudoephedrine. However, using a nasal decongestant for more than three days can cause worse symptoms when you stop the medication. This is called the rebound effect. Antihistamines - These medications help to relieve the symptoms of nasal allergies that lead to inflammation and infections. However, some doctors advise against using antihistamines during a sinus infection because they can cause excessive drying and slow the drainage process. Drps-yuu-[id number] antihistamines include diphenhydramine (Benadryl and others), chlorpheniramine (Chlor-Trimeton and others) and loratadine (Claritin). Fexofenadine (Priya) and cetrizine (Zyrtec) are available by prescription. Nasal steroids - Anti-inflammatory sprays such as mometasone (Nasonex) and fluticasone (Flonase), both available by prescription, reduce swelling of nasal membranes. Like antihistamines, nasal steroids can be most useful for those who have nasal allergies. Nasal steroids tend to produce less drying than antihistamines. Unlike nasal decongestants, nasal steroids can be used for prolonged periods. Saline nasal sprays - These salt-water sprays are safe to use and can provide some relief by adding moisture to the nasal passages, thinning m ucus secretions and helping to flush out any bacteria that may be present. Pain relievers - Acetaminophen (Tylenol), ibuprofen (Advil, Motrin and others) or naproxen (Aleve) can be taken sinus pain. Antibiotics - Your doctor may prescribe an antibiotic if he or she suspects that a bacterial infection is causing your sinusitis. If you start taking an antibiotic, complete the entire course so that the infection is completely killed off. Not all cases of sinusitis require antibiotic treatment: Talk with your doctor about whether an antibiotic is right for you. Keep in mind that antibiotics can cause side effects, such as allergic reactions, rash and diarrhea. In addition, overusing antibiotics eventually leads to the spread of bacteria that no longer can be killed by the most commonly prescribed antibiotics. When To Call A Professional Contact a doctor if you experience facial pain along with a headache and fever, cold symptoms that last longer than seven to 10 days, or persistent green d ischarge from the nose. If your symptoms don't improve within a week of beginning treatment, call your doctor. Call sooner if symptoms are getting worse. If you have repeated bouts of acute sinusitis, you may have allergies or another treatable cause of sinus congestion. Ask your doctor for advice. Coding Level of Care Code Est Pt Level 3 (90852) Diagnoses Acute bacterial sinusitis J01.90; B96.89
== END 2023-10-16 12:11 | disposition home or self-care (01) ==
PROVIDERS: PCP Internal Medicine; Visit Provider Nurse Practitioner Family
DX: J01.90 Acute sinusitis, unspecified (principal); B96.89 Other specified bacterial agents as the cause of diseases classified elsewhere
CPT/HCPCS: 99213

== ENCOUNTER 2024-01-29 10:58 | Outpatient (AMB) | payer OTHER, SELFPAY ==
--- NOTE | 2024-01-29 11:04 | A.OFFVIS_ITS ---
Vital Signs 3 01/29/24 11:05 Height 5 ft 1.5 in Weight 184 lb 1.376 oz BMI 34.2 BP 128/92 H Blood Pressure Location Lt brachial Position Sitting Pulse 59 Pulse Source Pulse Oximeter Intake Visit Reasons: f/u thyroid cancer-confirmed Intake Note: Patient present today for thyroid cancer follow up visit. Senior Painter Required: No Accompanied by: Self / Same As Patient Allergies Seasonal Allergies Allergy (Intermediate, Verified 01/29/24 11:07) Itchy Eyes lactose Adverse Reaction (Severe, Verified 01/29/24 11:07) Abdominal Pain shrimp Allergy (Severe, Uncoded 01/29/24 11:07) Anaphylaxis Medication List - Last Reconciled 01/29/24 by Neida Anton MD amoxicillin-pot clavulanate 875-125 mg 1 tab PO BID 7 days bupropion HCl XL 300 mg PO QAM calcium citrate-vitamin D3 500 mg-12.5 mcg (500 unit) tabs PO cholecalciferol (vitamin D3) 25 mcg PO DAILY fluticasone furoate-vilanterol 200-25 mcg/dose (Breo Ellipta) 1 inh inhalation DAILY 30 days ipratropium-albuterol 0.5 mg-3 mg(2.5 mg base)/3 mL 3 mL inhalation Q4-6H PRN 30 days levothyroxine 125 mcg PO DAILY methylcellulose (laxative) (Citrucel) 500 mg PO TID 30 days nebulizers (Airs Disposable Nebulizer misc) As directed omeprazole 20 mg PO DAILY trazodone 25 mg PO DAILY Ventolin HFA 90 mcg/actuation (albuterol sulfate) 2 puffs inhalation Q6H PRN 30 days NS HPI Comments Details: 49-year-old female with past medical history significant for 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 Urias at [facility], pathology showed left side papillary microcarcinoma measuring 0.8 cm, LN 0/7, AJCC stage I (pT1 N0 MX). No MCLAUGHLIN. Has subsequently been maintained on levothyroxine administration. Non stimulated TG remains undetectable with undetectable TG antibodies. 12/2018: Ultrasound neck showed right-sided level 2 1.1 cm normal appearing lymph node, and another 1.8 cm lymph node which did not have a fatty hilum. Left-sided level 2 0.8 cm normal-appearing lymph node, and level 3 1.5 cm normal-appearing lymph node. 10/2020: Ultrasound neck showed multiple bilateral lymph nodes with normal kristal architecture. Largest lymph node on the right side at level 5B measuring 1.6 cm, with normal kristal architecture and largest left-sided level 4 lymph node measuring 1.7 cm with normal kristal architecture. 12/2021: US neck Multiple bilateral lymph nodes noted, with a prominent right- sided level 5A lymph node measuring 1 cm with irregular cortical margins. With cortical thickening. 07/01/2022: Right cervical level 5A lymph node biopsy FNA: Negative for malignant cells, showed heterogeneous lymphoid population, as well as left cervical level 1B FNA showed rare atypical epithelioid cells. Thyroglobulin needle washout was negative (less than 0.1 ng/mL), nonspecific T cell dominant profile on flow cytometry 07/21/2023: TSH 2.18, TG less than 0.1, TG antibody undetectable Family history: Mother has hypothyroidism Maternal aunt thyroidectomy, not sure if cancer. Patient is currently on levothyroxine 125 mcg daily. Takes it appropriately. Adherent Describes she is always hot. Reports excessive sweating. reports very infrequent palpitations. Suffers PMDD. Weight loss due to diet control. No tremors. Reports some chronic hair thinning. ? Patient denies any difficulty swallowing, pain on swallowing or voice changes or difficulty breathing. Patient denies any history of childhood neck radiation. Denies having ever used lithium, amiodarone or biotin supplements. Review of systems Constitutional: no fevers, chills HEENT: no changes in vision Cardiac: No chest pain, discomfort or palpitations. Pulmonary: No SOB GI:No abdominal pain, no nausea or vomiting, no anorexia, no blood in stool : no burning micturition, dysuria or increase in urinary frequency Physical exam General: sitting comfortably in no acute distress HEENT: normocephalic/atraumatic, moist oral mucosa Neck: supple, symmetrical, no palpable masses , no palpable lymph node Cardiac: normal heart sounds Pulm: normal breath sounds B/L, no added breath sounds Abd: not distended, no tenderness Extremities: no edema Neuro: AAO x3, Speech: normal, no facial droop, moving all 4 extremities PFSH Medical History (Updated 01/26/24 @ 20:32 by Rica Isaacs MD) Psoriatic arthritis Hearing loss Right-sided sensorineural hearing loss Moderate persistent asthma Chronic diarrhea Chronic fatigue Moderate recurrent major depression Lymphadenopathy Physical exam Hearing loss Vitamin D deficiency Post-surgical hypothyroidism Papillary microcarcinoma of thyroid Surgical History Hx of carpal tunnel repair History of partial hysterectomy Hx of thyroidectomy Family History (Updated 09/07/23 @ 10:12 by Rica Isaacs MD) Father Diabetes mellitus Hypertension High cholesterol Mother Rheumatoid arthritis Lupus Hypothyroidism Hypertension Maternal Grandmother Bladder cancer Paternal Aunt Breast cancer Family/Other Mental health disorder Substance use disorder Social History Household Members: Children [facility] Are you a primary dog daycare provider to a significant other at home: No Do you presently have visiting nurse or other home services: No Alcohol intake: current Alcohol intake frequency: a few times a month Alcohol type: wine and hard liquor Patient Tobacco Use Status: Never used Tobacco e-Cigarette/Vaping Use: Never Used Second Hand Smoke Exposure: No service: No Current occupational status: employed Current occupational exposures/hazards: No Cognitive needs: No Hearing needs: No Vision needs: Yes Physical Exam Vital Signs: Last Vital Signs Pulse 59 01/29/24 11:05 BP 128/92 H 01/29/24 11:05 BMI result Body Mass Index 34.2 Results Reviewed Results Reviewed: Laboratory Tests 04/16/18 06/30/18 12/31/18 11:35 14:00 11:00 Free T4 1.04 1.29 0.83 TSH Thyroglobulin <0.1 <0.1 Thyroglobulin Antibody <1 <1 04/02/19 07/08/19 01/03/20 10:25 06:58 10:55 Free T4 1.46 0.99 1.19 TSH Thyroglobulin <0.1 Thyroglobulin Antibody <1 01/11/20 07/04/20 06/27/21 09:46 10:38 08:37 Free T4 1.43 1.14 TSH 0.03 L 0.44 Thyroglobulin <0.1 <0.1 <0.1 Thyroglobulin Antibody <1 <1 <1 10/02/21 12/25/21 01/08/22 10:57 16:00 15:54 Free T4 1.11 TSH 0.09 L 1.81 2.37 Thyroglobulin Thyroglobulin Antibody 06/09/22 07/21/22 09/03/22 08:28 11:30 12:05 Free T4 1.32 1.13 1.03 TSH 8.19 H 3.41 1.65 Thyroglobulin Thyroglobulin Antibody 01/20/23 07/21/23 11:15 08:07 Free T4 1.22 1.16 TSH 0.49 2.18 Thyroglobulin <0.1 L <0.1 Thyroglobulin Antibody <1 US SOFT TISSUE NECK 10/06 CLINICAL INFORMATION: Malignant neoplasm of thyroid gland. COMPARISON: Ultrasound soft tissue neck 11/01/2020 and 07/20/2019. TECHNIQUE: Ultrasound of the neck soft tissues is performed with high- frequency howe-scale imaging and color Doppler. FINDINGS: THYROID BED: Prior thyroidectomy. No residual thyroid tissue demonstrated in the thyroid bed. No cystic or solid nodules demonstrated in the thyroid bed. There are a total of 16 lymph nodes identified. The questioned abnormal ones will be listed with the other demonstrating normal-appearing lymph nodes with normal fatty hilum and no evidence of cortical thickening or lobulation. The lymph nodes are difficult to compare to prior study due to the large number. RIGHT NECK SOFT TISSUES: Level 3: 1.3 x 0.8 x 1.0. cm. Previously this measured 1.2 x 0.6 x 1.1 cm in size. Fatty hilum is not identified. No cortical lobulation identified. The lymph node is not round and no definite calcification is evident. Level 3: 1.7 x 0.4 x 1.4 cm. There appears to be an absent fatty cleft. No cortical lobulation is identified. Level 3:1.7 x 0.8 x 1.3 cm. Absent fatty hilum. No cortical lobulation. Level 5A: 1.0 x 0.6 x 0.9 cm. Previously 1.2 x 0.5 x 0.8 cm in size. There is a normal fatty cleft present however the cortical margins appear somewhat irregular. No cortical thickening is identified. LEFT NECK SOFT TISSUES: Level 1B: 1.1 x 0.6 x 0.8 cm. Normal fatty cleft is present however there is question of cortical thickening to approximately 5 mm in diameter. No cortical lobulation is seen. Level 3: 1.0 x 0.7 x 0.7 cm. Previously this measured 1.2 x 0.7 x 0.9 cm in size. There is a rounded appearance to the lymph node with absent fatty hilum. US/US soft tiss head and/or neck IMPRESSION: 1. Numerous bilateral cervical lymph nodes. A few have absent fatty hilum bilaterally. Within the right level 5A there is a lymph node with some question irregular margins but without cortical thickening present. 2. Within left level 1B there is a 1.1 cm maximum dimension lymph node with a thickened cortex. US SOFT TISSUE NECK 11/05 CLINICAL INFORMATION: Malignant neoplasm of thyroid gland. COMPARISON: None. TECHNIQUE: Ultrasound of the neck soft tissues is performed with high- frequency howe-scale imaging and color Doppler. FINDINGS: THYROID BED: Prior thyroidectomy. No residual thyroid tissue demonstrated in the thyroid bed. No cystic or solid nodules demonstrated in the thyroid bed. RIGHT NECK SOFT TISSUES: Scattered architecturally normal nodes are present. The nodes show normal fatty hilus, normal cortical thickness, and no cystic change or calcification. No abnormal color flow. The largest nodes are as follows: Level 1B: 0.9 x 0.6 x 1.0 cm. Normal kristal architecture. Level 2: 0.9 x 0.5 x 0.9 cm. Normal kristal architecture.. Level 2:1.2 x 0.5 0.8 cm. Normal kristal architecture. Previously measured 1.1 x 0.7 x 0.9 cm. Level 5A: 1.2 x 0.3 x 0.7 cm. Normal kristal architecture. Level 5B: 1.6 x 0.6 was 0.8 cm. Normal kristal architecture. Low level 3: 1.2 x 0.6 x 1.1 cm. Normal kristal architecture. Previously measured 1.5 x 0.7 x 0.9 cm. LEFT NECK SOFT TISSUES: Scattered architecturally normal nodes are present. The nodes show normal fatty hilus, normal cortical thickness, and no cystic change or calcification. No abnormal color flow. The largest nodes are as follows: Level 1B: 0.6 x 0.4 x 1.0 cm. Normal kristal architecture. Level 2: 1.3 x 0.6 x 1.3 cm. Normal kristal architecture. Level 2:1.0 x 0.4 0.4 cm. Normal kristal architecture. Level 3:1.2 x 0.7 x 0.9 cm, normal kristal architecture. Previously measured 1.5 x 0.4 x 0.9 cm at level for: 1.7 x 0.4 x 0.8 cm. Normal kristal architecture. Level 4: 1.7 x 0.4 x 0.8 cm. Normal kristal architecture. US/US soft tiss head and/or neck IMPRESSION: 1. Bilateral benign neck lymph nodes. None of the lymph nodes are suspicious at this time. 2. If clinically indicated further evaluation of the neck soft tissues and nodes may be performed with CT soft tissue neck with intravenous contrast. 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, status post total thyroidectomy 02/2008 at [facility] with chapincito Spicer RAI, AJC stage 1 ([id number]), NIRAV inital low risk of recurrence with subsequent non stimulated undetectable TG over the years, with ultrasound head and neck showing nonspecific findings with mostly normal looking lymph nodes, except in June 2022 when right-sided level 5A lymph node was noted to be slightly abnormal appearing with irregular margins and cortical thickening, status post FNA of this lymph node as well as a left cervical level 1B lymph node both showing no evidence of malignancy with negative thyroglobulin washout. Her TG remains undetectable with most recent labs from July 2023 showing undetectable non stimulated TG . At this point I would classify her as NIRAV excellent response to therapy and we will plan to see her back in July 2024 with repeated non stimulated thyroglobulin levels. her last ultrasound was from December 2021 and given excellent response to therapy I will plan to repeat it in 3 to 4 years sometime in December 2024/ July 2025. Her target TSH based on NIRAV excellent response to therapy is between 0.5-2. Her most recent TSH was 2.18 from July 2023 which is pretty close, hence similar continue the same dose of levothyroxine 125 mcg daily. She is biochemically euthyroid. We will obtain TSH, free T4 along with thyroglobulin levels prior to her next appointment in July 2024. She is at this point 16 years out of her original surgery, and once there has been 20 years of cancer free survival, we can follow this more liberally. Plan: -ordered TSH, free T4, thyroglobulin tumor markers to be done in July 2024 prior to next appointment -continue levothyroxine 125 mcg daily -repeat US neck in 3 to 4 years from last one in Jan 06 sometime in December 2024/ July 2025 (2) Post-surgical hypothyroidism: Code(s): E89.0 - Postprocedural hypothyroidism Category: Medical Plan: Her target TSH based on NIRAV excellent response to therapy is between 0.5-2. Her most recent TSH was 2.18 from July 2023 which is pretty close, hence similar continue the same dose of levothyroxine 125 mcg daily. She is biochemically euthyroid. We will obtain TSH, free T4 along with thyroglobulin levels prior to her next appointment in July 2024. Plan: -ordered TSH, free T4, thyroglobulin tumor markers to be done in July 2024 prior to next appointment -continue levothyroxine 125 mcg daily Plan I spent 30 minutes in reviewing the record, seeing the patient and documenting in the medical record. Orders: Orders 2 Thyroid Stimulating Hormone 07/18/24 C73 - Malignant neoplasm of thyroid gland, E89.0 - Postprocedural hypothyroidism Free T4 (Free Thyroxine) 07/18/24 C73 - Malignant neoplasm of thyroid gland, E89.0 - Postprocedural hypothyroidism Thyroglobulin 07/18/24 C73 - Malignant neoplasm of thyroid gland, E89.0 - Postprocedural hypothyroidism Thyroglobulin Tumor Marker 07/18/24 C73 - Malignant neoplasm of thyroid gland, E89.0 - Postprocedural hypothyroidism Thyroglobulin Antibodies 07/18/24 C73 - Malignant neoplasm of thyroid gland, E89.0 - Postprocedural hypothyroidism Patient Instructions: Do blood work in July 2024 at least 2 weeks before your appointment Continue levothyroxine 125 mcg daily Coding Level of Care Code Est Pt Level 4 (27697) Complex EM visit Add On G2211 Diagnoses Papillary microcarcinoma of thyroid C73 Post-surgical hypothyroidism E89.0 Time Spent (min) 30
[2024-01-29 11:05] VITALS: BP 128/92; PULSE 59; BMI 34.2
== END 2024-01-29 11:36 | disposition home or self-care (01) ==
PROVIDERS: PCP Internal Medicine; Visit Provider Student in an Organized Health Care Education/Training Program
DX: C73 Malignant neoplasm of thyroid gland (principal); E89.0 Postprocedural hypothyroidism
CPT/HCPCS: 99214

== ENCOUNTER → 2024-01-29 10:58 | Outpatient (BNVA) | payer OTHER, SELFPAY | PROVIDERS: PCP Internal Medicine; Visit Provider Student in an Organized Health Care Education/Training Program ==

== ENCOUNTER 2024-02-19 10:30 | Outpatient (REF) | payer OTHER, SELFPAY | END 2024-02-19 10:31 | disposition home or self-care (01) | LOC: HO.SH 10:30 | PROVIDERS: Visit Provider Internal Medicine | DX: Z01.118 Encounter for examination of ears and hearing with other abnormal findings (principal); H90.41 Sensorineural hearing loss, unilateral, right ear, with unrestricted hearing on the contralateral side | CPT/HCPCS: 92552; 92556 ==

== ENCOUNTER 2024-03-04 09:01 | Outpatient (REF) | payer OTHER, SELFPAY ==
[2024-03-04 12:56] LABS: Alanine Aminotransferase 17 U/L (0-31); Albumin Level 4.2 g/dL (3.5-5.0); Alkaline Phosphatase 53 U/L (39-117); Anion Gap 9 (12-20); Aspartate Amino Transferase 12 U/L (5-31); Bilirubin Total 0.5 mg/dL (0.0-1.0); Blood Urea Nitrogen 7 mg/dL (9-16); Calcium 9.2 mg/dL (8.4-10.2); Carbon Dioxide 30 mmol/L (22-29); Chloride 105 mmol/L (96-108); Cholesterol 128 mg/dL (<200); Estimated Glomerular Filt Rate > 60; Glucose Fasting 100 mg/dL (60-99); HDL Cholesterol 34 mg/dL (>40); LDL Cholesterol Calculated 59 mg/dL (<100); Potassium 4.1 mmol/L (3.3-5.1); Sodium 140 mmol/L (135-145); Total Protein 7.1 g/dL (6.5-8.0); Triglycerides 175 mg/dL (<150)
[2024-03-04 13:00] LABS: Vitamin D 25-OH Total 48.2 ng/mL (>30)
[2024-03-04 13:34] LABS: Estimated Average Glucose 111 mg/dL; Hemoglobin A1C 139.1598 umol/L; Hemoglobin A1c % 5.5 % (<6.0); Total Hemoglobin (HGBA1C) 3776.4968 umol/L
== END 2024-03-04 09:02 | disposition home or self-care (01) ==
LOC: HO.WFDLDS 09:01
PROVIDERS: Visit Provider Internal Medicine
DX: E11.9 Type 2 diabetes mellitus without complications (principal); E78.5 Hyperlipidemia, unspecified; E55.9 Vitamin D deficiency, unspecified; E11.40 Type 2 diabetes mellitus with diabetic neuropathy, unspecified
CPT/HCPCS: 36415; 80053; 80061; 82306; 83036

== ENCOUNTER 2024-03-08 15:48 | Outpatient (AMB) | payer OTHER, SELFPAY ==
--- NOTE | 2024-03-08 15:49 | MHC.PC.OV ---
Intake Visit Reasons: blood glucose/[id number] Telephone Recorder Required: No Accompanied by: Self / Same As Patient Allergies Seasonal Allergies Allergy (Intermediate, Verified 03/08/24 19:29) Itchy Eyes lactose Adverse Reaction (Severe, Verified 03/08/24 19:29) Abdominal Pain shrimp Allergy (Severe, Uncoded 03/08/24 19:29) Anaphylaxis Medication List - Last Reconciled 03/08/24 by Rica Isaacs MD bupropion HCl XL 300 mg PO QAM calcium citrate-vitamin D3 500 mg-12.5 mcg (500 unit) tabs PO cholecalciferol (vitamin D3) 25 mcg PO DAILY erythromycin 0.5 inches ophthalmic (eye) QID fluticasone furoate-vilanterol 200-25 mcg/dose (Breo Ellipta) 1 inh inhalation DAILY 30 days ipratropium-albuterol 0.5 mg-3 mg(2.5 mg base)/3 mL 3 mL inhalation Q4-6H PRN 30 days levothyroxine 125 mcg PO DAILY methylcellulose (laxative) (Citrucel) 500 mg PO TID 30 days nebulizers ([employer] Monitoring Disposable Nebulizer misc) As directed omeprazole 20 mg PO DAILY tapinarof 1% (Vtama) appl topical trazodone 25 mg PO DAILY Ventolin HFA 90 mcg/actuation (albuterol sulfate) 2 puffs inhalation Q6H PRN 30 days NS Tobacco use date assessed: 03/08/24 Dental Screening Dental Screen Date: 09/07/23 HPI HPI Comments History of Present Illness Details This is a 49-year-old female with impaired glucose tolerance, papillary microcarcinoma of thyroid, moderate persistent asthma and moderate recurrent major depression that has tele health visit by video for follow-up on his conditions. Blood glucose has markedly improved. Thyroid is follow by Endocrinology. Asthma stable with Breo and use rescue inhaler as needed. Depression well controlled with bupropion. Denies any chest pain or shortness on breath. Labs were discussed. Also cholesterol and triglycerides markedly improved with diet. [facility] Medical History (Updated 03/08/24 @ 19:53 by Rica Isaacs MD) Diabetes Psoriatic arthritis Hearing loss Right-sided sensorineural hearing loss Moderate persistent asthma Chronic diarrhea Chronic fatigue Moderate recurrent major depression Lymphadenopathy Physical exam Hearing loss Vitamin D deficiency Post-surgical hypothyroidism Papillary microcarcinoma of thyroid Surgical History Hx of carpal tunnel repair History of partial hysterectomy Hx of thyroidectomy Family History Father Diabetes mellitus Hypertension High cholesterol Mother Rheumatoid arthritis Lupus Hypothyroidism Hypertension Maternal Grandmother Bladder cancer Paternal Aunt Breast cancer Family/Other Mental health disorder Substance use disorder Social History Household Members: Children [facility]: [facility] Are you a primary career services coordinator to a significant other at home: No Do you presently have visiting nurse or other home services: No Alcohol intake: current Alcohol intake frequency: a few times a month Alcohol type: wine and hard liquor Patient Tobacco Use Status: Never used Tobacco e-Cigarette/Vaping Use: Never Used Second Hand Smoke Exposure: No service: No Current occupational status: employed Current occupational exposures/hazards: No Cognitive needs: No Hearing needs: No Vision needs: Yes Questionnaire Thrive Questionnaire Date Thrive assessed: 09/07/23 JB-7 AMB Questionnaire JB-7 Date JB - 7 assessed: 09/07/23 Source: Developed by Drs. Carlos Meyer, Madelin Martinez, Paul Em and colleagues, with an educational ilsa from [employer]. Review of Systems Const All systems reviewed & are unremarkable except as noted in HPI and below Eyes Reports no additional complaints, Denies change in vision and Denies other visual disturbances ENT Denies change in voice, Denies nasal discharge and Denies sinus pain Card Denies chest pain at rest, Denies chest pain with activity, Denies edema, Denies irregular heart rhythm, Denies claudication, Denies dyspnea, Denies dyspnea on exertion, Denies orthopnea, Denies paroxysmal nocturnal dyspnea and Denies slow heart rate Resp Denies cough, Denies dyspnea and Denies dyspnea on exertion GI Denies abdominal pain, Denies change in bowel habits, Denies excessive flatus, Denies nausea and Denies vomiting Denies urinary incontinence, Denies urinary hesitancy and Denies urinary urgency Musc Denies abnormal gait, Denies atrophy, Denies deformity and Denies limited range of motion Skin/Breast Denies bleeding lesions, Denies changing lesions and Denies rash Neuro Denies abnormal gait, Denies behavioral changes and Denies lack of coordination Psych Denies behavioral changes Physical exam (Primary Care) Tobacco/Smoking Status: Tobacco use Status Tobacco use date assessed 03/08/24 03/08/24 15:54 Patient Tobacco Use Status Never used Tobacco 03/08/24 15:54 e-Cigarette/Vaping Use Never Used 03/08/24 15:54 Thrive Assessment: Date of Thrive Assessment Date Thrive assessed 09/07/23 03/08/24 15:54 HENMT Head: Yes normal to inspection, Yes normocephalic and Yes atraumatic Eyes General: appearance normal, both eyes and all related structures Eyelids: Yes eyelids normal Conjunctivae: conjunctivae normal Psych Appearance: grossly normal Office Procedures Flu Questionnaire Does the patient have a severe egg allergy?: No Immunizations Fluarix Triv [id number] (PF) 45 mcg (15 mcg x 3)/0.5 mL IM syringe Performing Provider: Rica Isaacs MD [facility] Documented (not given) by: NIXON Escudero on 03/08/24 15:54 Reason Not Given: Not Given Telehealth Telehealth Telehealth Platform: Other (please specify) (ipad) Location of provider rendering services: practice address Location of patient: address on file Patient Identification confirmed using: Name, : Yes Telehealth method: video Patient verbally consented to treatment: Yes Patient verbally consented to billing insurance company: Yes Patient informed of any privacy concerns related to visit: Yes Minutes spent on Phone/Video with Pt.: 15 Coding Level of Care Code Tele Est Pt Level 4 (42562) Complex EM visit Add On G2211 Diagnoses Moderate recurrent major depression F33.1 Papillary microcarcinoma of thyroid C73 Moderate persistent asthma without complication J45.40 Asthma complication type: uncomplicated Impaired glucose tolerance R73.02 Time Spent (min) 15 Assessment & Plan Assessment & Plan (1) Moderate recurrent major depression: Code(s): F33.1 - Major depressive disorder, recurrent, moderate Category: Medical Plan: Continue bupropion. (2) Papillary microcarcinoma of thyroid: Code(s): C73 - Malignant neoplasm of thyroid gland Category: Medical Plan: Continue levothyroxine. (3) Moderate persistent asthma: Code(s): J45.40 - Moderate persistent asthma, uncomplicated Category: Medical Qualifiers: Asthma complication type: uncomplicated Qualified Code(s): J45.40 - Moderate persistent asthma, uncomplicated Plan: Continue Breo. Use rescue inhaler as needed. (4) Impaired glucose tolerance: Code(s): R73.02 - Impaired glucose tolerance (oral) Category: Medical Plan: Continue low-carbohydrate diet. Orders: Orders Influenza [id number] Immunization Today Z23 - Encounter for immunization Thyroid Stimulating Hormone Today E89.0 - Postprocedural hypothyroidism Comprehensive [place]. Panel Fast 6 Months E11.9 - Type 2 diabetes mellitus without complications Lipid Panel 6 Months E78.5 - Hyperlipidemia, unspecified Vitamin D 25-OH Total 6 Months E55.9 - Vitamin D deficiency, unspecified
== END 2024-03-08 16:26 | disposition home or self-care (01) ==
LOC: HO.HMCH 15:48
PROVIDERS: PCP Internal Medicine; Visit Provider Internal Medicine
DX: F33.1 Major depressive disorder, recurrent, moderate (principal); C73 Malignant neoplasm of thyroid gland; J45.40 Moderate persistent asthma, uncomplicated; R73.02 Impaired glucose tolerance (oral); Z23 Encounter for immunization

== ENCOUNTER → 2024-03-08 15:48 | Outpatient (BNVA) | payer OTHER, SELFPAY | PROVIDERS: PCP Internal Medicine; Visit Provider Internal Medicine | DX: F33.1 Major depressive disorder, recurrent, moderate (principal); C73 Malignant neoplasm of thyroid gland; J45.40 Moderate persistent asthma, uncomplicated; R73.02 Impaired glucose tolerance (oral); Z79.899 Other long term (current) drug therapy | CPT/HCPCS: 90471 ==

== ENCOUNTER 2024-05-06 13:28 | Outpatient (AMB) | payer OTHER, SELFPAY ==
[2024-05-06 13:29] VITALS: BP 138/87; PULSE 70; O2SAT 97; BMI 32.7
--- NOTE | 2024-05-06 13:29 | A.OFFVIS_ITS ---
Vital Signs 05/06/24 13:29 Height 5 ft 1.5 in Weight 176 lb BMI 32.7 BP 138/87 Blood Pressure Location Rt brachial Position Sitting Pulse 70 Pulse Source Doppler Pulse Oximetry (%) 97 Oxygen Delivery Method Room Air Intake Visit Reasons: Shortness of breath Allergies Seasonal Allergies Allergy (Intermediate, Verified 05/06/24 13:34) Itchy Eyes lactose Adverse Reaction (Severe, Verified 05/06/24 13:34) Abdominal Pain shrimp Allergy (Severe, Uncoded 03/08/24 19:29) Anaphylaxis HPI HPI Shortness of breath: Details: 49-year-old lady, nonsmoker, with underlying history of asthma, well controlled on Breo and as needed albuterol MDI/duo nebs. Patient denies any recent exacer bations. [facility] Medical History (Updated 03/08/24 @ 19:53 by Rica Isaacs MD) Diabetes Psoriatic arthritis Hearing loss Right-sided sensorineural hearing loss Moderate persistent asthma Chronic diarrhea Chronic fatigue Moderate recurrent major depression Lymphadenopathy Physical exam Hearing loss Vitamin D deficiency Post-surgical hypothyroidism Papillary microcarcinoma of thyroid Surgical History Hx of carpal tunnel repair History of partial hysterectomy Hx of thyroidectomy Family History Father Diabetes mellitus Hypertension High cholesterol Mother Rheumatoid arthritis Lupus Hypothyroidism Hypertension Maternal Grandmother Bladder cancer Paternal Aunt Breast cancer Family/Other Mental health disorder Substance use disorder Social History Household Members: Children [facility] Are you a primary senior care manager to a significant other at home: No Do you presently have visiting nurse or other home services: No Alcohol intake: current Alcohol intake frequency: a few times a month Alcohol type: wine and hard liquor Patient Tobacco Use Status: Never used Tobacco e-Cigarette/Vaping Use: Never Used Second Hand Smoke Exposure: No service: No Current occupational status: employed Current occupational exposures/hazards: No Cognitive needs: No Hearing needs: No Vision needs: Yes Review of Systems Const Denies daytime sleepiness, Denies excessive sweating, Denies fatigue, Denies fever(s), Denies lethargy, Denies malaise, Denies night sweats, Denies snoring and Denies weight loss Eyes Denies blurry vision and Denies itchy eyes ENT Denies nasal congestion, Denies post nasal drip, Denies sinus pain, Denies sinus pressure and Denies other ( Thrush) Card Denies chest pain, Denies pedal edema, Denies dyspnea, Denies orthopnea and Denies paroxysmal nocturnal dyspnea Resp Denies cough, Denies hemoptysis, Denies excessive phlegm production, Denies dyspnea, Denies snoring and Denies wheezing GI Denies abdominal pain and Denies heartburn Musc Denies myalgias, Denies arthralgias and Denies joint swelling Skin/Breast Denies rash Neuro Denies memory loss and Denies seizure-like activity Psych Denies abnormal sleep pattern, Denies anxiety and Denies memory loss Endo Denies excessive sweating, Denies fatigue and Denies heat intolerance Rj/Lymph Denies easy bruising Aller/Immun Denies itchy eyes, Denies seasonal rhinorrhea and Denies wheezing Physical Exam Vital Signs: Last Vital Signs Pulse 70 05/06/24 13:29 BP 138/87 05/06/24 13:29 Pulse Ox 97 05/06/24 13:29 Oxygen Delivery Method Room Air 05/06/24 13:29 BMI result Body Mass Index 32.7 Const General: no acute distress and alert Nutritional Appearance: not obese Orientation/consciousness: Other orientation findings ( oriented) HEENT Head: Yes atraumatic Eyes General: appearance normal, both eyes and all related structures Sclerae: sclerae normal EOM: EOMs intact bilaterally Neck Neck: Yes supple Lymphatic: no lymphadenopathy noted Resp Effort & Inspection: normal respiratory effort and no use of accessory muscles Auscultation: clear to auscultation bilaterally Cardio Rate: regular rate Rhythm: regular rhythm Heart sounds: no gallops, no murmurs and no rubs Skin General skin exam: other ( warm) Extrem General: No clubbing, No cyanosis and No edema Assessment & Plan Assessment & Plan (1) Asthma: Code(s): J45.909 - Unspecified asthma, uncomplicated Category: Medical Plan: Well controlled on current regimen of Breo, duo nebs, and albuterol MDI. Continue current regimen. Coding Level of Care Code Est Pt Level 3 (04154) Diagnoses Asthma J45.909
--- OUTSIDE RECORDS SUMMARY | 2024-05-06 13:30 | XMS_ITS | Continuity of Care Document ---
Author Organization [facility] Address [address] [place] [address] Phone Care Team Providers Care Loan Funder Name Role Phone JOSELUIS HILL DO Unavailable Unavailable Allergies, Adverse Reactions, Alerts Substance Reaction Status Criticality No Known allergies Medications Medication Instructions Dosage Effective Dates (start - stop) Status Comments levothyroxine 150 mcg Tab take 1 tablet (150MCG) by oral route every day 150 MCG - Active iron ER 325 mg (65 mg iron) Cap take 1 by Oral route 2 times every day - Active Procedures Procedure Date OFFICE/OUTPATIENT VISIT, [facility] Advance Directives Directive Yes / No Effective Date File Name No Information Encounters Encounter Description Practice Location Reason(s) For Visit Diagnoses Date Provider Providers Copied on Encounter [facility], [address], [place], [place], [id number] , tel: [phone] [place] No Information 3 LIZ HUGGINS. [address] [place], [place], [id number] , [place]. tel: [phone] [facility], [address], [place], [id number] , tel: [phone] [place] No Information 2 LIZ HUGGINS. [address] [place], [place], [id number] , [place]. tel: [phone] [facility], [address], [place], [id number] , tel: [phone] [place] No Information 2 LIZ HUGGINS. [address] [place], [place], [id number] , [place]. tel: [phone] OFFICE/OUTPA TIENT VISIT, [facility], [address] [facility] [address], [place], [place], [id number] , [place] tel: [phone] [place] preventive exam (chief complaint)S leep apnea (consult) (chief complaint) Obstructive sleep apneaObesityHypothyr oidRLS (restless legs syndrome)FH: lupus erythematosusScreeni ng, lipid 2 LIZ [address]GGINS. [address] [place], [place], [id number] , [place]. tel: [phone] Family History Family Member Type Diagnosis Age At Onset Mother Problem (finding) hypertension Mother Problem (finding) diabetes melli tus in first degree relative Father Problem (finding) hypertension Payers Payer name Insurance type Covered green party ID Authorhonorio culver(s) [facility] [id number] Social History Type Description Quantity Date Captured Comments Sex Female Smoking Status No Information Chief Complaint And Reason For Visit No Information Reason For Referral Reason For Referral No Information Plan Of Treatment Date Type Action Status Referral Referred To: PM Sleep Ordered: Referral: Sleep Studies. Evaluate and treat. Appointment date/timeframe: 11/21/2011 ordered Future Order: Lab Order HEIDY ([id number]), O rdered on: Ordered Future Order: Lab Order CMP ([id number]), O rdered on: Ordered Future Order: Lab Order FERRITIN ([id number]), Ordered on: Ordered Future Order: Lab Order HEMOGLOB IN A1C ([id number]), Ordered on: Ordered Future Order: Lab Order CBC ([id number]), O rdered on: Ordered Future Order: Lab Order T4 FREE ([id number]), Ordered on: Ordered Future Order: Lab Order TSH ([id number]), O rdered on: Ordered Future Order: Lab Order VITAMIN D, 25-HYDROXY, TOTAL ([id number]), Ordered on: Ordered Future Order: Lab Order LIPID PA JEET ([id number]), Ordered on: Ordered History Of Present Illness Encounter Date Complaint History Of Prese nt Illness No Information Functional Status Date Functional Assessmen t No Information Instructions Date Instruction Additional Infor mation No Information Assessments Type Assessment Date No Information Patient Care Teams Name Effective Dates (start - stop) Status Members No Information
== END 2024-05-06 13:43 | disposition home or self-care (01) ==
PROVIDERS: PCP Internal Medicine; Visit Provider Internal Medicine Pulmonary Disease
DX: J45.909 Unspecified asthma, uncomplicated (principal)
CPT/HCPCS: 99213

== ENCOUNTER → 2024-05-06 13:28 | Outpatient (BNVA) | payer OTHER, SELFPAY | PROVIDERS: PCP Internal Medicine; Visit Provider Internal Medicine Pulmonary Disease ==

== ENCOUNTER 2024-10-03 08:34 | Outpatient (REF) | payer OTHER, SELFPAY ==
--- OUTSIDE RECORDS SUMMARY | 2024-10-03 08:42 | XMS_ITS | Data Portability ---
Author Organization [place] [facility], Allergy Address [address] [address] Care Team Providers Care Screedman/Laborer Name Role Phone HEIDY ANDERSON Primary Care Provider Assessment Encounter Date Assessment Date Assessment LastModified by Organization Details LastModified Time 09/19/2024 09/19/2024 Patient has 2 concerns. The first was vocal changes. Fiberoptic laryngoscopy shows mild vocal cord bowing bilaterally. Discussed breath support. Reassurance is given there are no vocal nodules at this time. Second concern was right-sided epistaxis. She frequently uses her finger to help clean her nose after blowing. I believe she is traumatizing her septum which is mildly deviated to the right. Recommend avoid digital trauma and use nasal saline to provide better hygiene for the nasal mucosa dplosky Not available 09/19/2024 10:45:15 Plan of Treatment Reminders Order Date Submit Date Provider Last Modified By Organization Details Last Modified Time Details Appointments None record ed. Lab None record ed. Referral None record ed. Procedures None record ed. Surgeries None record ed. Imaging None record ed. Medication Orders None record ed. Patient TargetsNo targets recorded. Patient InstructionsNo instructions recorded. Reason for Referral None Reported. Problems Name Problem SNOMED Code Status Onset Date Resolution Date Notes Provider Name and Address Organization Details Recorded Time Sensorine ural hearing loss 99829956 Active 2021 Sensorineu ral hearing loss, unilateral , left ear, with unrestrict ed hearing on the contralate ral side; Note: Date Diagnosed: 11/28/2021 10:42 AM (H90.42) Not Available [employer] 03:31:31 Bowing of vocal cord 860175239 Active 2024 APOLONIA MORRIS MD [address] [facility] [address], [place], [address] , [facility] 10:44:14 Bleeding from nose 795933578 Active 2024 APOLONIA MORRIS MD [address] [facility],[place] [address], [place], [address] , [facility] - [facility] 10:44:19 Deviated nasal septum 156103152 Active 2024 APOLONIA MORRIS MD [address] [facility],[place] [address], [place], [address] , [facility] 10:44:23 Problem Notes None recorded. Procedures Surgical History Date Name Laterality Status Provider Name and Address Organization Details Recorded Time 09/19/2024 FOL_DP completed APOLONIA MORRIS MD [address] [facility],[place] [address], [place], [address], [facility] 09/19/2024 10:44:01 Imaging Results None recorded. Procedure Notes None recorded. Medical Equipment None Reported. Medications Name Sig Start Date Stop Date Status Note LastModified by Organization Details LastModified Time Prescripti on - Prior Authorizat ion Request active Script Copy/Pr ior Auth^Sc ript Copy/Pr ior Auth_20 [id number] Not Available Not Available Not Available amoxicilli n 500 mg capsule TAKE 1 CAPSULE BY MOUTH EVERY 8 HOURS TILL GONE 09/19 completed Not Available Not Available Not Available trazodone 50 mg tablet TAKE 1 AND 1/2 TABLETS BY MOUTH AT BEDTIME active Not Available Not Available No t Available metronidaz ole 500 mg tablet TAKE 1 TABLET BY MOUTH TWICE A DAY FOR 7 DAYS 09/19 completed Not Available Not Available Not Available erythromyc in 5 mg/gram (0.5 %) eye ointment LOCATION : RIGHT EYE. APPLY TO RIGHT UPPER LID THREE TIMES A DAY X 7 DAYS 09/19 completed Not Available Not Available Not Available levothyrox ine 125 mcg tablet TAKE 1 TABLET BY MOUTH EVERY DAY active Not Available Not Available No t Available omeprazole 20 mg capsule,de layed release Take 1 capsule every day by oral route. active Not Available Not Available No t Available amoxicilli n 875 mg-potassi um clavulanat e 125 mg tablet TAKE 1 TABLET BY MOUTH TWICE A DAY FOR 7 DAYS 09/19 completed Not Available Not Available Not Available bupropion HCl XL 300 mg 24 hr tablet, extended release TAKE 1 TABLET BY MOUTH EVERY MORNING DIRECTED DEPRESSI ON, MOTIVATI ON active Not Available Not Available No t Available levalbuter ol HFA 45 mcg/actuat ion aerosol inhaler INHALE 2 PUFFS EVERY 6 HOURS NEEDED FOR WHEEZE OR FOR SHORTNES S OF BREATH active Not Available Not Available No t Available Breo Ellipta 200 mcg-25 mcg/dose powder for inhalation INHALE 1 PUFF EVERY DAY X30 DAYS active Not Available Not Available No t Available Vtama 1 % topical cream Apply to psoriasi s patches once daily active Not Available Not Available No t Available calc carb-mag ox-D3-zinc gluc active Not Available Not Available Not Available Vitals Date Recorded Body height Body mass index (BMI) Body weight Provider Name and Address Organization Details Last Updated DateTime 09/19/2024 154.94 cm 32.7 kg/m2 24108.48 g [facility] - [facility] 09/19/2024 10:24:44 Social History None recorded. Functional Status None recorded. Mental Status None recorded. Family History Nothing Reported. Medical History No medical history recorded. Gynecological HistoryNo gynecological history recorded. Obstetrics History GPAL:G 0 P 0 0 0 0 Past Encounters Encounter ID Performer Location Encounter Start Date Encounter Closed Date Diagnosis/Indication Diagnosis SNOMED-CT Code Diagnosis ICD10 Code Diagnosis Note [id number] APOLONIA MORRIS MD [facility] [address] [address] 09/19/2024 10:14:49 09/19/2024 10:50:03 Bowing of vocal cord 669334004 J38.3 Bleeding from nose 09941 6005 R04.0 Deviated nasal septum 12 9814532 J34.2 Health Concerns Section Related Observation LastModified by Organization Detai ls LastModified Time None Recorded Concern Status LastModified by Organization Details LastModified Time None Recorded Advance Directives Directive None Recorded Payers Insurance Date Sequence Insurance Name Policy Number Policy Miguel Covered Member ID Miguel Member ID Guarantor Name 09/19/[address] [place] [address] [id number] Claire Stockton [id number] Claire Gonzalez Notes Date Note Type Note Provider Name and Address Organization Details Recorded Time 09/19/2024 text/html hoarsesuspects h as vocal nodulesgets vocal fatigue 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 Right HAE offered. septum to right.12/27/21 [facility] MRI IAC - normal no retrocochlear pathology. 25mm mucus retention cyst right max sinus APOLONIA MORRIS MD [address] [place] [address], [address], [place] - [facility] 09/19/2024 10:45:39 OBGyn Episode No OBEpisode recorded.
--- OUTSIDE RECORDS SUMMARY | 2024-10-03 08:42 | XMS_ITS | Continuity of Care Document ---
Author Organization [facility] Address [address] [place] [address] Phone Care Team Providers Care High School Sports Coach Name Role Phone JOSELUIS HILL DO Unavailable [...] - Active Procedures Procedure Date OFFICE/OUTPATIENT VISIT, [facility] Advance Directives Directive Yes / No Effective Date File Name No Information Encounters Encounter Description Practice Location Reason(s) For Visit Diagnoses Date Provider Providers Copied on Encounter [facility], [address], [place], [place], [id number] , tel: [phone] [place] No Information 3 LIZ HUGGINS. [address] [place], [place], [id number] , [place]. tel: [phone] [facility], [address], [place], [id number] , tel: [phone] [place] No Information 2 LIZ HUGGINS. [address] [place], [place], [id number] , [place]. tel: [phone] [facility], [address], [place], [address] , tel: [phone] [place] No Information 2 LIZ HUGGINS. [address] [place], [place], [id number] , [place]. tel: [phone] OFFICE/OUTPA TIENT VISIT, [facility], [address] [facility] [address], [place], [place], [address] , [place] tel: [phone] [place] preventive exam (chief complaint)S leep apnea (consult) (chief complaint) Obstructive sleep apneaObesityHypothyr oidRLS (restless legs syndrome)FH: lupus erythematosusScreeni ng, lipid 201 [address]. [address] [place], [place], [id number] , [place]. tel: [phone] Family History Family Member Type Diagnosis Age At Onset Mother Problem (finding) hypertension Mother Problem (finding) diabetes melli tus in first degree relative Father Problem (finding) hypertension Payers Payer name Insurance type Covered democrat ID Authorhonorio culver(s) [facility] [id number] Social History Type Description Quantity Date Captured Comments Sex Female Smoking Status No Information Chief Complaint And Reason For Visit No Information Reason For Referral Reason For Referral No Information History Of Present Illness Encounter Date Complaint History Of Prese nt Illness No Information Functional Status Date Functional Assessmen t No Information Instructions Date Instruction Additional Infor mation No Information Assessments Type Assessment Date No Information Patient Care Teams Name Effective Dates (start - stop) Status Members No Information
[2024-10-03 12:18] LABS: Thyroid Stimulating Hormone 0.54 uIU/mL (0.32-4.0); Vitamin D 25-OH Total 37.8 ng/mL (>30)
[2024-10-03 12:21] LABS: Anion Gap 11 (12-20)
[2024-10-03 12:26] LABS: Alanine Aminotransferase 21 U/L (0-31); Albumin Level 4.1 g/dL (3.5-5.0); Alkaline Phosphatase 63 U/L (39-117); Aspartate Amino Transferase 16 U/L (5-31); Bilirubin Total 0.5 mg/dL (0.0-1.0); Blood Urea Nitrogen 8 mg/dL (9-16); Calcium 8.9 mg/dL (8.4-10.2); Carbon Dioxide 28 mmol/L (22-29); Chloride 105 mmol/L (96-108); Cholesterol 115 mg/dL (<200); Estimated Glomerular Filt Rate > 60; Glucose Fasting 95 mg/dL (60-99); HDL Cholesterol 34 mg/dL (>40); LDL Cholesterol Calculated 55 mg/dL (<100); Sodium 140 mmol/L (135-145); Triglycerides 133 mg/dL (<150)
== END 2024-10-03 08:35 | disposition home or self-care (01) ==
LOC: HO.WFDLDS 08:34
PROVIDERS: Visit Provider Internal Medicine
DX: Z00.00 Encounter for general adult medical examination without abnormal findings (principal); Z23 Encounter for immunization; R10.2 Pelvic and perineal pain; J45.909 Unspecified asthma, uncomplicated; K21.9 Gastro-esophageal reflux disease without esophagitis; Z79.899 Other long term (current) drug therapy; E11.9 Type 2 diabetes mellitus without complications; E78.5 Hyperlipidemia, unspecified; E89.0 Postprocedural hypothyroidism; E55.9 Vitamin D deficiency, unspecified
CPT/HCPCS: 36415; 80053; 80061; 82306; 84443; 90471; 90715; 96127

== ENCOUNTER 2024-10-03 12:35 | Outpatient (AMB) | payer OTHER, SELFPAY ==
--- NOTE | 2024-10-03 12:39 | A.OFFPC_ITS ---
Vital Signs 10/03/24 12:45 Height 5 ft 1.5 in Weight 172 lb BMI 32.0 BP 118/80 Blood Pressure Location Lt brachial Position Sitting Intake Visit Reasons: Annual Exam Intake Note: Patient here for an annual physical exam Document Control Supervisor Required: No Accompanied by: Self / Same As Patient Allergies Seasonal Allergies Allergy (Intermediate, Verified 10/03/24 12:54) Itchy Eyes lactose Adverse Reaction (Severe, Verified 10/03/24 12:54) Abdominal Pain shrimp Allergy (Severe, Uncoded 10/03/24 12:54) Anaphylaxis Medication List - Last Reconciled 10/03/24 by Rica Isaacs MD bupropion HCl XL 300 mg PO QAM calcium citrate-vitamin D3 500 mg-12.5 mcg (500 unit) tabs PO cholecalciferol (vitamin D3) 25 mcg PO DAILY fluticasone furoate-vilanterol 200-25 mcg/dose (Breo Ellipta) 1 inh inhalation DAILY 90 days ipratropium-albuterol 0.5 mg-3 mg(2.5 mg base)/3 mL 3 mL inhalation Q4-6H PRN 30 days levalbuterol tartrate 45 mcg/actuation 2 inhalations inhalation Q6H PRN levothyroxine 125 mcg PO DAILY methylcellulose (laxative) (Citrucel) 500 mg PO TID 30 days nebulizers (Airs Disposable Nebulizer misc) As directed omeprazole 20 mg PO DAILY tapinarof 1% (Vtama) appl topical trazodone 25 mg PO DAILY Tobacco use date assessed: 10/03/24 Dental Screening Dental Screen Date: 10/03/24 Did you have a dental visit in the last 12 months?: Yes Did you have a dental problem in the last 6 months where you did not have access to dental care?: No Was dental information given to patient?: Patient has dentist HPI HPI Comments History of Present Illness Details The patient is a 49-year-old female presenting for her annual physical examination. She has a history of asthma managed with as-needed albuterol, GERD treated with omeprazole, and hypothyroidism controlled with levothyroxine. Her current concern is anxiety, which she manages through lifestyle changes. Depression has improved, with a current PHQ-9 score of 5. She follows a specific diet to manage GERD symptoms, avoiding red meats and spicy foods. The patient has undergone previous surgeries, including thyroidectomy and partial hysterectomy, and reports a history of carpal tunnel surgery. Screening tests, such as a colonoscopy five years ago, showed mild gastritis and a diminutive polyp. Laboratory results are overall positive, showing normal cholesterol and thyroid levels and improved blood glucose. Family history reveals diabetes, hypercholesterolemia, hypertension, lupus, and rheumatoid arthritis. The patient does not smoke and drinks alcohol occasionally. She suspects premenopausal changes due to increased pelvic pain and more severe cramps. - Annual physical examination was conduc penelope. - Discussed vaccination status; tetanus vaccination due soon. - Dietary modifications for GERD, includ ing reduced red meat and avoidance of red sauce. - Managed asthma symptoms with albuterol as needed. - Continued monitoring of thyroid functi on and cholesterol levels within normal limits. - Screening for gastrointestinal health with previous colonoscopy showing mild gastritis. [facility] Medical History Diabetes Psoriatic arthritis Hearing loss Right-sided sensorineural hearing loss Moderate persistent asthma Chronic diarrhea Chronic fatigue Moderate recurrent major depression Lymphadenopathy Physical exam Hearing loss Vitamin D deficiency Post-surgical hypothyroidism Papillary microcarcinoma of thyroid Surgical History Hx of carpal tunnel repair History of partial hysterectomy Hx of thyroidectomy Family History Father Diabetes mellitus Hypertension High cholesterol Mother Rheumatoid arthritis Lupus Hypothyroidism Hypertension Maternal Grandmother Bladder cancer Paternal Aunt Breast cancer Family/Other Mental health disorder Substance use disorder Social History Household Members: Children [facility] Are you a primary foster care case manager to a significant other at home: No Do you presently have visiting nurse or other home services: No Alcohol intake: current Alcohol intake frequency: a few times a month Alcohol type: wine and hard liquor Patient Tobacco Use Status: Never used Tobacco e-Cigarette/Vaping Use: Never Used Second Hand Smoke Exposure: No service: No Current occupational status: employed Current occupational exposures/hazards: No Cognitive needs: No Hearing needs: No Vision needs: Yes Questionnaire PHQ-9 Over the last 2 weeks, how often have you been bothered by any of the following problems? 1. Little interest or pleasure in doing things: not at all 2. Feeling down, depressed, or hopeless: not at all 3. Trouble falling or staying asleep, or sleeping too much: several days 4. Feeling tired or having little energy: more than half the days 5. Poor appetite or overeating: not at all 6. Feeling bad about yourself - or that you are a failure or have let yourself or your family down: not at all 7. Trouble concentrating on things, such as reading the newspaper or watching television: more than half the days 8. Moving or speaking so slowly that other people could have noticed. Or the opposite - being so fidgety or restless that you have been moving around a lot more than usual: not at all 9. Thoughts that you would be better off or of hurting yourself in some way: not at all Total score: 5 Depression Screening Interpretation: Positive Depression Screening Follow-up: Existing condition, In treatment and Follow-up Visit Requested Depression Screening Done: Yes 92888 - PHQ-9 Billing: Yes Source: Developed by Drs. Carlos Meyer, Madelin Martinez, Paul Em and colleagues, with an educational ilsa from [employer]. Thrive Questionnaire Date Thrive assessed: 10/03/24 I am a: Patient What is your living situation today?: I have a steady place to live Within the past 12 months, did the food you bought not last and you didn't have the money to get more?: Never true Within the past 12 months, did you worry whether your food would run out before you got money to buy more?: Never true Do you have trouble paying for medicines?: No Do you have trouble getting transportation to medical appointments?: No Do you have trouble paying your heating and electricity bill?: No Do you have trouble taking care of your child, family member or friend?: No Do you have trouble with day-to-day activities such as bathing, preparing meals, shopping, managing finances, etc.?: No Are you currently unemployed and looking for a job?: Yes Are you interested in more education?: No Please select the resources that you would like help with: None Currently or been in a relationship where the following occur: No concerns reported THRIVE Score: 0 AUDIT C Alcohol Use Questionnaire (AUDIT-C) 1. How often do you have a drink containing alcohol?: Monthly or less 2. How many drinks containing alcohol do you have on a typical day when you are drinking?: 1 or 2 3. How often do you have six or more drinks on one occasion?: Never Total Score: 1 Score Reviewed/Action Taken: No JB-7 AMB Questionnaire JB-7 Date JB - 7 assessed: 10/03/24 Feeling nervous, anxious, or on edge: 1 = Several days Not being able to stop or control worryin = Several days Worrying too much about different things: 1 = Several days Trouble relaxin = Several days Being so restless that it is hard to sit still: 0 = Not at all Becoming easily annoyed or irritable: 1 = Several days Feeling afraid as if something awful might happen: 0 = Not at all Total JB-7 score (0-4 normal; 5-9 mild; 10-14 moderate; 15-21 severe): 5 Source: Developed by Drs. Carlos Meyer, Madelin Martinez, Paul Em and colleagues, with an educational ilsa from [employer]. JB-7 Assessment Billing JB-7 Assessment Tool: JB-7 Assessment 30680 Review of Systems Const All systems reviewed & are unremarkable except as noted in HPI and below Card Denies chest pain at rest, Denies chest pain with activity, Denies edema, Denies irregular heart rhythm, Denies claudication, Denies dyspnea, Denies dyspnea on exertion, Denies orthopnea, Denies paroxysmal nocturnal dyspnea and Denies slow heart rate Resp Denies cough, Denies dyspnea and Denies dyspnea on exertion GI Denies abdominal pain, Denies change in bowel habits, Denies excessive flatus, Denies nausea and Denies vomiting Physical exam (Primary Care) Vital Signs: Last Vital Signs BP 118/80 10/03/24 12:45 BMI result Body Mass Index 32.0 Tobacco/Smoking Status: Tobacco use Status Tobacco use date assessed 10/03/24 10/03/24 12:51 Patient Tobacco Use Status Never used Tobacco 10/03/24 12:42 e-Cigarette/Vaping Use Never Used 10/03/24 12:42 PHQ-9: PHQ-9 Score PHQ-9: Total score 5 10/03/24 13:11 Depression Screening Interpretation: Positive Depression Screening Follow-up: Existing condition, In treatment and Follow-up Visit Requested Thrive Assessment: Date of Thrive Assessment Date Thrive assessed 10/03/24 10/03/24 12:51 Currently or been in a relationship where the following occur: No concerns reported [facility] Head: Yes normal to inspection, Yes normocephalic and Yes atraumatic Ears: external ears normal Eyes General: appearance normal, both eyes and all related structures Eyelids: Yes eyelids normal Conjunctivae: conjunctivae normal Neck Neck: Yes normal visual inspection and Yes supple Resp Effort & Inspection: normal respiratory effort Auscultation: clear to auscultation bilaterally Cardio Jugular venous distension: no JVD Rate: regular rate Rhythm: regular rhythm Heart sounds: S1 normal heart sound present and S2 normal heart sound present GI Inspection: Yes normal to inspection Palpation (GI): Soft to palpation and nontender Auscultation: normal bowel sounds Skin General skin exam: no rashes or lesions noted Neuro General: no focal motor deficits Extrem General: Yes full ROM Psych Appearance: grossly normal Immunizations Boostrix Tdap 2.5 Lf unit-8 mcg-5 Lf/0.5 mL intramuscular syringe Performing Provider: Rica Isaacs MD [facility] Administered by: NIXON Escudero on 10/03/24 13:12 Dose Route Admin Location Dispensed Lot Number Expiration Date [facility] Regulatory Associate 0.5 mL IM Left Deltoid 0.5 mL [id number] 01/11/27 [id number] [facility] VIS Given Date VIS Provided VIS Publication Date 10/03/24 Single Vaccine 24 Eligibility Eligibility Date Funding Source Not [facility] Eligible 10/03/24 Private Coding Level of Care Code Est Pt Level 3 (71489) Est Pt Prev Care 40-64y(75251) Diagnoses Physical exam Z00.00 Pelvic pain in female R10.2 Additional Codes JB-7 Assessment Billing - JB-7 Assessment Tool: JB-7 Assessment 50571 ([id number]) PHQ-9 - 54538 - PHQ-9 Billing: Yes ([id number]) Time Spent (min) 32 Assessment & Plan Assessment & Plan (1) Physical exam: Code(s): Z00.00 - Encounter for general adult medical examination without abnormal findings Category: Medical (2) Pelvic pain in female: Code(s): R10.2 - Pelvic and perineal pain Category: Medical Plan We will continue her current asthma management plan using albuterol as necessary. Her improvement in depression is encouraging, yet we'll monitor the e ffectiveness of bupropion 300 mg as her anxiety management needs addressing, possibly by adjusting her current strategy. Omeprazole will remain a part of her GERD treatment plan in conjunction with dietary modifications. Given her history of mild gastritis and the diminutive polyp, a repeat colonoscopy may be needed. We will explore symptoms possibly associated with premenopausal changes. Patient was informed and verbally consented to the use of an ambient scribe for clinic note documentation during this visit. I discussed with the patient the ongoing management of her asthma, depression, a nxiety, and GERD. We recognized her progress with depression and tailored her treatment plan with bupropion. I reviewed optional interventions for anxiety management, ensuring to maintain current effective strategies and explore new options, if needed. Given her history and current symptoms, a follow-up colonoscopy might be recommended. Risks and benefits of current treatments were reviewed, emphasizing dietary strategies for GERD. We emphasized exploring current symptomatology related to menopause. 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 - Continue dietary restrictions to manage GERD symptoms. - Use albuterol as needed for asthma symptoms. - Monitor anxiety levels and return if over-concerned or symptoms worsen. - Consider scheduling a follow-up colonoscopy if gastrointestinal symptoms persist.
[2024-10-03 12:45] VITALS: BP 118/80; BMI 32.0
--- OUTSIDE RECORDS SUMMARY | 2024-10-03 12:55 | XMS_ITS | Continuity of Care Document ---
Author Organization [facility] Address [address] [place] [address] Phone Care Team Providers Care Rail Director Name Role Phone JOSELUIS HILL DO Unavailable [...] - Active Procedures Procedure Date OFFICE/OUTPATIENT VISIT, [facility] Advance Directives Directive Yes / No Effective Date File Name No Information Encounters Encounter Description Practice Location Reason(s) For Visit Diagnoses Date Provider Providers Copied on Encounter [facility], [address], [place], [place], [id number] , tel: [phone] [place] No Information 3 LIZ HUGGINS. [address] [place], [place], [id number] , [place]. tel: [phone] [facility], [address], [place], [address] , tel: [phone] [place] No Information 2 LIZ HUGGINS. [address] [place], [place], [id number] , [place]. tel: [phone] [facility], [address], [place], [address] , tel: [phone] [place] No Information 2 LIZ HUGGINS. [address] [place], [place], [id number] , [place]. tel: [phone] OFFICE/OUTPA TIENT VISIT, [facility] e, [address] [facility], [place], [place], [id number] , [place] tel: [phone] [place] preventive exam (chief complaint)S leep apnea (consult) (chief complaint) Obstructive sleep apneaObesityHypothyr oidRLS (restless legs syndrome)FH: lupus erythematosusScreeni ng, lipid 201 2 LIZ HUGGINS. [address] [place], [place], [id number] , [place]. tel: [phone] Family History Family Member Type Diagnosis Age At Onset Mother Problem (finding) hypertension Mother Problem (finding) diabetes melli tus in first degree relative Father Problem (finding) hypertension Payers Payer name Insurance type Covered constitution party ID Authorhonorio culver(s) [facility] [id number] Social History Type Description Quantity Date Captured [...]
== END 2024-10-03 13:11 | disposition home or self-care (01) ==
LOC: HO.HMCH 12:36
PROVIDERS: PCP Internal Medicine; Visit Provider Internal Medicine
DX: Z00.00 Encounter for general adult medical examination without abnormal findings (principal); R10.2 Pelvic and perineal pain; Z23 Encounter for immunization

== ENCOUNTER 2024-10-08 08:36 | Outpatient (REF) | payer OTHER, SELFPAY ==
--- OUTSIDE RECORDS SUMMARY | 2024-10-08 08:38 | XMS_ITS | Continuity of Care Document ---
Author Organization [facility] Address [address] [place] [address] Phone Care Team Providers Care Manager Land Name Role Phone JOSELUIS HILL DO Unavailable [...] - Active Procedures Procedure Date OFFICE/OUTPATIENT VISIT, [facility] Advance Directives Directive Yes / No Effective Date File Name No Information Encounters Encounter Description Practice Location Reason(s) For Visit Diagnoses Date Provider Providers Copied on Encounter [facility], [address], [place], [place], [id number] , tel: [phone] [place] No Information 3 LIZ HUGGINS. [address] [place], [place], [id number] , [place]. tel: [phone] [facility], [address], [place], [address] , tel: [phone] [place] No Information 2 LIZ HUGGINS. [address] [place], [place], [id number] , [place]. tel: [phone] [facility], [address], [address] , tel: [phone] [place] No Information 2 LIZ HUGGINS. [address] [place], [place], [id number] , [place]. tel: [phone] OFFICE/OUTPA TIENT VISIT, [facility] e, [address], [place], [place], [address] , [place] tel: [phone] [place] preventive exam (chief complaint)S leep apnea (consult) (chief complaint) Obstructive sleep apneaObesityHypothyr oidRLS (restless legs syndrome)FH: lupus erythematosusScreeni ng, lipid 201 2 LIZ HUGGINS. [address] [place], [place], [address] , [place]. tel: [phone] Family History Family Member Type Diagnosis Age At Onset Mother Problem (finding) hypertension Mother Problem (finding) diabetes melli tus in first degree relative Father Problem (finding) hypertension Payers Payer name Insurance type Covered alliance party ID Authorhonorio culver(s) [facility] [id number] Social History Type Description Quantity Date Captured [...]
== END 2024-10-08 08:37 | disposition home or self-care (01) ==
LOC: HO.MAMMO 08:36
PROVIDERS: PCP Internal Medicine; Visit Provider Internal Medicine
DX: Z12.31 Encounter for screening mammogram for malignant neoplasm of breast (principal)
CPT/HCPCS: 77063; 77067

== ENCOUNTER → 2024-10-08 08:45 | Outpatient (BNV) | payer OTHER, SELFPAY | PROVIDERS: PCP Internal Medicine; Visit Provider Internal Medicine | DX: Z12.31 Encounter for screening mammogram for malignant neoplasm of breast (principal) | CPT/HCPCS: 77063; 77067 ==

== ENCOUNTER 2024-10-17 08:25 | Outpatient (AMB) | payer OTHER, SELFPAY ==
--- NOTE | 2024-10-17 08:31 | A.OFFVIS_ITS ---
Vital Signs 3 10/17/24 08:32 Height 5 ft 1.5 in Weight 175 lb 11.335 oz BMI 32.7 BP 140/92 H Blood Pressure Location Lt brachial Position Sitting Pulse 59 Pulse Source Pulse Oximeter Pulse Oximetry (%) 97 Oxygen Delivery Method Room Air Intake Visit Reasons: f/u thyroid cancer- Intake Note: Patient present today for thyroid cancer office visit. Editorial Director Required: No Accompanied by: Self / Same As Patient Allergies Seasonal Allergies Allergy (Intermediate, Verified 10/17/24 08:34) Itchy Eyes lactose Adverse Reaction (Severe, Verified 10/17/24 08:34) Abdominal Pain shrimp Allergy (Severe, Uncoded 10/17/24 08:34) Anaphylaxis Medication List - Last Reconciled 10/17/24 by Neida Anton MD bupropion HCl XL 300 mg PO QAM calcium citrate-vitamin D3 500 mg-12.5 mcg (500 unit) tabs PO cholecalciferol (vitamin D3) 25 mcg PO DAILY fluticasone furoate-vilanterol 200-25 mcg/dose (Breo Ellipta) 1 inh inhalation DAILY 90 days ipratropium-albuterol 0.5 mg-3 mg(2.5 mg base)/3 mL 3 mL inhalation Q4-6H PRN 30 days levalbuterol tartrate 45 mcg/actuation 2 inhalations inhalation Q6H PRN levothyroxine 125 mcg PO DAILY methylcellulose (laxative) (Citrucel) 500 mg PO TID 30 days nebulizers (Airs Disposable Nebulizer misc) As directed omeprazole 20 mg PO DAILY tapinarof 1% (Vtama) appl topical trazodone 25 mg PO DAILY HPI Comments Details: 49-year-old female with past medical history significant for 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 Urias at [facility], pathology showed left side papillary microcarcinoma measuring 0.8 cm, LN 0/7, AJCC stage I (pT1 N0 MX). No MCLAUGHLIN. Has subsequently been maintained on levothyroxine administration. Non stimulated TG remains undetectable with undetectable TG antibodies. 12/2018: Ultrasound neck showed right-sided level 2 1.1 cm normal appearing lymph node, and another 1.8 cm lymph node which did not have a fatty hilum. Left-sided level 2 0.8 cm normal-appearing lymph node, and level 3 1.5 cm normal-appearing lymph node. 10/2020: Ultrasound neck showed multiple bilateral lymph nodes with normal kristal architecture. Largest lymph node on the right side at level 5B measuring 1.6 cm, with normal kristal architecture and largest left-sided level 4 lymph node measuring 1.7 cm with normal kristal architecture. 12/2021: US neck Multiple bilateral lymph nodes noted, with a prominent right- sided level 5A lymph node measuring 1 cm with irregular cortical margins. With cortical thickening. 07/01/2022: Right cervical level 5A lymph node biopsy FNA: Negative for malignant cells, showed heterogeneous lymphoid population, as well as left cervical level 1B FNA showed rare atypical epithelioid cells. Thyroglobulin needle washout was negative (less than 0.1 ng/mL), nonspecific T cell dominant profile on flow cytometry 07/21/2023: TSH 2.18, TG less than 0.1, TG antibody undetectable Family history: Mother has hypothyroidism Maternal aunt thyroidectomy, not sure if cancer. Interval history Patient is currently on levothyroxine 125 mcg daily. Takes it appropriately. Adherent Describes she is always hot. Reports excessive sweating. reports very infrequent palpitations. Suffers PMDD. Weight loss due to diet control. No tremors. Reports some chronic hair thinning. ? Patient denies any difficulty swallowing, pain on swallowing or voice changes or difficulty breathing. Patient denies any history of childhood neck radiation. Denies having ever used lithium, amiodarone or biotin supplements. 10/03/24: TSH 0.54, forgot to do the blood work I had ordered so no tumor markers done prior to this appointment Physical exam General: sitting comfortably in no acute distress HEENT: normocephalic/atraumatic, moist oral mucosa Neck: supple, symmetrical, no palpable masses , no palpable lymph node Cardiac: normal heart sounds Pulm: normal breath sounds B/L, no added breath sounds Abd: not distended, no tenderness Extremities: no edema Neuro: AAO x3, Speech: normal, no facial droop, moving all 4 extremities Laboratory Tests Laboratory Tests 04/16/18 06/30/18 12/31/18 11:35 14:00 11:00 Free T4 1.04 1.29 0.83 TSH Thyroglobulin <0.1 <0.1 Thyroglobulin Antibody <1 <1 04/02/19 07/08/19 01/03/20 10:25 06:58 10:55 Free T4 1.46 0.99 1.19 TSH Thyroglobulin <0.1 Thyroglobulin Antibody <1 01/11/20 07/04/20 06/27/21 09:46 10:38 08:37 Free T4 1.43 1.14 TSH 0.03 L 0.44 Thyroglobulin <0.1 <0.1 <0.1 Thyroglobulin Antibody <1 <1 <1 10/02/21 12/25/21 01/08/22 10:57 16:00 15:54 Free T4 1.11 TSH 0.09 L 1.81 2.37 Thyroglobulin Thyroglobulin Antibody 06/09/22 07/21/22 09/03/22 08:28 11:30 12:05 Free T4 1.32 1.13 1.03 TSH 8.19 H 3.41 1.65 Thyroglobulin Thyroglobulin Antibody 01/20/23 07/21/23 11:15 08:07 Free T4 1.22 1.16 TSH 0.49 2.18 Thyroglobulin <0.1 L <0.1 Thyroglobulin Antibody <1 Laboratory Tests 10/03/24 08:36 TSH 0.54 US SOFT TISSUE NECK 10/06 CLINICAL INFORMATION: Malignant neoplasm of thyroid gland. COMPARISON: Ultrasound soft tissue neck 11/01/2020 and 07/20/2019. TECHNIQUE: Ultrasound of the neck soft tissues is performed with high- frequency howe-scale imaging and color Doppler. FINDINGS: THYROID BED: Prior thyroidectomy. No residual thyroid tissue demonstrated in the thyroid bed. No cystic or solid nodules demonstrated in the thyroid bed. There are a total of 16 lymph nodes identified. The questioned abnormal ones will be listed with the other demonstrating normal-appearing lymph nodes with normal fatty hilum and no evidence of cortical thickening or lobulation. The lymph nodes are difficult to compare to prior study due to the large number. RIGHT NECK SOFT TISSUES: Level 3: 1.3 x 0.8 x 1.0. cm. Previously this measured 1.2 x 0.6 x 1.1 cm in size. Fatty hilum is not identified. No cortical lobulation identified. The lymph node is not round and no definite calcification is evident. Level 3: 1.7 x 0.4 x 1.4 cm. There appears to be an absent fatty cleft. No cortical lobulation is identified. Level 3:1.7 x 0.8 x 1.3 cm. Absent fatty hilum. No cortical lobulation. Level 5A: 1.0 x 0.6 x 0.9 cm. Previously 1.2 x 0.5 x 0.8 cm in size. There is a normal fatty cleft present however the cortical margins appear somewhat irregular. No cortical thickening is identified. LEFT NECK SOFT TISSUES: Level 1B: 1.1 x 0.6 x 0.8 cm. Normal fatty cleft is present however there is question of cortical thickening to approximately 5 mm in diameter. No cortical lobulation is seen. Level 3: 1.0 x 0.7 x 0.7 cm. Previously this measured 1.2 x 0.7 x 0.9 cm in size. There is a rounded appearance to the lymph node with absent fatty hilum. US/US soft tiss head and/or neck IMPRESSION: 1. Numerous bilateral cervical lymph nodes. A few have absent fatty hilum bilaterally. Within the right level 5A there is a lymph node with some question irregular margins but without cortical thickening present. 2. Within left level 1B there is a 1.1 cm maximum dimension lymph node with a thickened cortex. US SOFT TISSUE NECK 11/05 CLINICAL INFORMATION: Malignant neoplasm of thyroid gland. COMPARISON: None. TECHNIQUE: Ultrasound of the neck soft tissues is performed with high- frequency howe-scale imaging and color Doppler. FINDINGS: THYROID BED: Prior thyroidectomy. No residual thyroid tissue demonstrated in the thyroid bed. No cystic or solid nodules demonstrated in the thyroid bed. RIGHT NECK SOFT TISSUES: Scattered architecturally normal nodes are present. The nodes show normal fatty hilus, normal cortical thickness, and no cystic change or calcification. No abnormal color flow. The largest nodes are as follows: Level 1B: 0.9 x 0.6 x 1.0 cm. Normal kristal architecture. Level 2: 0.9 x 0.5 x 0.9 cm. Normal kristal architecture.. Level 2:1.2 x 0.5 0.8 cm. Normal kristal architecture. Previously measured 1.1 x 0.7 x 0.9 cm. Level 5A: 1.2 x 0.3 x 0.7 cm. Normal kristal architecture. Level 5B: 1.6 x 0.6 was 0.8 cm. Normal kristal architecture. Low level 3: 1.2 x 0.6 x 1.1 cm. Normal kristal architecture. Previously measured 1.5 x 0.7 x 0.9 cm. LEFT NECK SOFT TISSUES: Scattered architecturally normal nodes are present. The nodes show normal fatty hilus, normal cortical thickness, and no cystic change or calcification. No abnormal color flow. The largest nodes are as follows: Level 1B: 0.6 x 0.4 x 1.0 cm. Normal kristal architecture. Level 2: 1.3 x 0.6 x 1.3 cm. Normal kristal architecture. Level 2:1.0 x 0.4 0.4 cm. Normal kristal architecture. Level 3:1.2 x 0.7 x 0.9 cm, normal kristal architecture. Previously measured 1.5 x 0.4 x 0.9 cm at level for: 1.7 x 0.4 x 0.8 cm. Normal kristal architecture. Level 4: 1.7 x 0.4 x 0.8 cm. Normal kristal architecture. US/US soft tiss head and/or neck IMPRESSION: 1. Bilateral benign neck lymph nodes. None of the lymph nodes are suspicious at this time. 2. If clinically indicated further evaluation of the neck soft tissues and nodes may be performed with CT soft tissue neck with intravenous contrast. [facility] Medical History Diabetes Psoriatic arthritis Hearing loss Right-sided sensorineural hearing loss Moderate persistent asthma Chronic diarrhea Chronic fatigue Moderate recurrent major depression Lymphadenopathy Physical exam Hearing loss Vitamin D deficiency Post-surgical hypothyroidism Papillary microcarcinoma of thyroid Surgical History Hx of carpal tunnel repair History of partial hysterectomy Hx of thyroidectomy Family History Father Diabetes mellitus Hypertension High cholesterol Mother Rheumatoid arthritis Lupus Hypothyroidism Hypertension Maternal Grandmother Bladder cancer Paternal Aunt Breast cancer Family/Other Mental health disorder Substance use disorder Social History Household Members: Children Housing: Condominium Are you a primary healthcare financial analyst to a significant other at home: No Do you presently have visiting nurse or other home services: No Alcohol intake: current Alcohol intake frequency: a few times a month Alcohol type: wine and hard liquor Patient Tobacco Use Status: Never used Tobacco e-Cigarette/Vaping Use: Never Used Second Hand Smoke Exposure: No service: No Current occupational status: employed Current occupational exposures/hazards: No Cognitive needs: No Hearing needs: No Vision needs: Yes Physical Exam Vital Signs: Last Vital Signs Pulse 59 10/17/24 08:32 BP 140/92 H 10/17/24 08:32 Pulse Ox 97 10/17/24 08:32 Oxygen Delivery Method Room Air 10/17/24 08:32 BMI result Body Mass Index 32.7 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, status post total thyroidectomy 02/2008 at [facility] with chapincito Spicer RAI, AJC stage 1 ([id number]), NIRAV inital low risk of recurrence with subsequent non stimulated undetectable TG over the years, with ultrasound head and neck showing nonspecific findings with mostly normal looking lymph nodes, except in June 2022 when right-sided level 5A lymph node was noted to be slightly abnormal appearing with irregular margins and cortical thickening, status post FNA of this lymph node as well as a left cervical level 1B lymph node both showing no evidence of malignancy with negative thyroglobulin washout. Her TG remains undetectable with most recent labs from July 2023 showing undetectable non stimulated TG . At this point I would classify her as NIRAV excellent response to therapy . She was supposed to repeat her blood work with tumor markers prior to this appointment today, however forgot to do blood work. her last ultrasound was from December 2021 and given excellent response to therapy I will plan to repeat it in 3 to 4 years sometime in August 2025. Her target TSH based on NIRAV excellent response to therapy is between 0.5-2. Her most recent TSH from July 2024 is around goal , hence similar continue the same dose of levothyroxine 125 mcg daily. She is biochemically euthyroid. She is at this point 17 years out of her original surgery, and once there has been 20 years of cancer free survival, we can follow this more liberally. Plan: - TSH, free T4, thyroglobulin tumor markers to be done now, we will reach out with the results -continue levothyroxine 125 mcg daily -repeat US neck ordered for August 2025 prior to follow up in 1 year (2) Post-surgical hypothyroidism: Code(s): E89.0 - Postprocedural hypothyroidism Category: Medical Plan: Her target TSH based on NIRAV excellent response to therapy is between 0.5-2. Her most recent TSH was within goal from July 2024, hence similar continue the same dose of levothyroxine 125 mcg daily. She is biochemically euthyroid. Plan: -TSH, free T4 to be repeated prior to next appointment in October 2025 -continue levothyroxine 125 mcg daily Plan See above Orders: Orders 2 US soft tiss head and/or neck 08/21/25 C73 - Malignant neoplasm of thyroid gland, E89.0 - Postprocedural hypothyroidism Medications: Refilled 2 levothyroxine E89.0 Postprocedural hypothyroidism 125 mcg PO DAILY 90 tabs 4RF C73 - Malignant neoplasm of thyroid gland, E89.0 - Postprocedural hypothyroidism Patient Instructions: Continue levothyroxine 125 mcg daily Do blood work today, we will message on the portal regarding results and if your dose needs to be changed Do ultrasound of the neck a few weeks prior to your next appointment in 1 year , also do blood work at least 2 weeks prior to that appointment Someone will call you to schedule the ultrasound , around August or September 2025 Coding Level of Care Code Est Pt Level 3 (86824) Complex EM visit Add On G2211 Diagnoses Papillary microcarcinoma of thyroid C73 Post-surgical hypothyroidism E89.0
[2024-10-17 08:32] VITALS: BP 140/92; PULSE 59; O2SAT 97; BMI 32.7
--- OUTSIDE RECORDS SUMMARY | 2024-10-17 08:37 | XMS_ITS | Continuity of Care Document ---
Author Organization [facility] Address [address] [place] [address] Phone Care Team Providers Care Health Records Technology Teacher Name Role Phone JOSELUIS HILL DO Unavailable [...] - Active Procedures Procedure Date OFFICE/OUTPATIENT VISIT, [facility] Advance Directives Directive Yes / No Effective Date File Name No Information Encounters Encounter Description Practice Location Reason(s) For Visit Diagnoses Date Provider Providers Copied on Encounter [facility], [address], [place], [place], [id number] , tel: [phone] [place] No Information 3 LIZ HUGGINS. [address] [place], [place], [id number] , [place]. tel: [phone] [facility], [address], [place], [id number] , tel: [phone] [place] No Information 2 LIZ HUGGINS. [address] [place], [place], [id number] , [place]. tel: [phone] [facility], [address], [place], [id number] , tel: [phone] [place] No Information 2 LIZ HUGGINS. [address] [place], [place], [id number] , [place]. tel: [phone] OFFICE/OUTPA TIENT VISIT, [facility], [address], [place], [place], [id number] , [place] tel: [phone] [place] preventive exam (chief complaint)S leep apnea (consult) (chief complaint) Obstructive sleep apneaObesityHypothyr oidRLS (restless legs syndrome)FH: lupus erythematosusScreeni ng, lipid 201 [address] LIZ [address]INS. [address] [place], [place], [id number] , [place]. tel: [phone] Family History Family Member Type Diagnosis Age At Onset Mother Problem (finding) hypertension Mother Problem (finding) diabetes melli tus in first degree relative Father Problem (finding) hypertension Payers Payer name Insurance type Covered libertarian ID Authorhonorio culver(s) [facility] [id number] Social History Type Description Quantity Date Captured [...]
== END 2024-10-17 08:54 | disposition home or self-care (01) ==
LOC: HO.ENCR 08:26
PROVIDERS: PCP Internal Medicine; Visit Provider Student in an Organized Health Care Education/Training Program
DX: C73 Malignant neoplasm of thyroid gland (principal); E89.0 Postprocedural hypothyroidism
CPT/HCPCS: 99213

== ENCOUNTER → 2024-10-17 08:25 | Outpatient (BNVA) | payer OTHER, SELFPAY | PROVIDERS: PCP Internal Medicine; Visit Provider Student in an Organized Health Care Education/Training Program ==

== ENCOUNTER 2024-10-17 08:57 | Outpatient (REF) | payer OTHER, SELFPAY ==
[2024-10-17 10:49] LABS: Free T4 (Free Thyroxine) 1.23 ng/dL (0.71-1.85); Thyroid Stimulating Hormone 0.49 uIU/mL (0.32-4.0)
[2024-10-18 20:53] LABS: Thyroglobulin <0.1 ng/mL; Thyroglobulin Antibodies <1 IU/mL (< or = 1)
[2024-10-20 17:23] LABS: Thyroglobulin Antibody <1 IU/mL (<=1); Thyroglobulin Level <0.1 ng/mL
== END 2024-10-17 08:58 | disposition home or self-care (01) ==
LOC: HO.10HDL 08:57
PROVIDERS: Visit Provider Student in an Organized Health Care Education/Training Program
DX: E89.0 Postprocedural hypothyroidism (principal); C73 Malignant neoplasm of thyroid gland
CPT/HCPCS: 36415; 84432; 84439; 84443; 86800

== ENCOUNTER 2024-11-11 16:12 | Outpatient (REF) | payer OTHER, SELFPAY ==
--- NOTE | ~2024-11-11 | US_ITS ---
EXAMINATION: US PELVIS CLINICAL INFORMATION: R10.2 - Pelvic and perineal pain COMPARISON: None available. TECHNIQUE: Ultrasound of the pelvis is performed using both transabdominal and transvaginal transducers along with Doppler. Transvaginal imaging is performed due to inadequate visualization transabdominally. FINDINGS: Uterus: Surgically absent Adnexa: Both ovaries are visualized. There is normal color flow to the adnexa. There is no ovarian torsion. There is no pelvic ascites or fluid collection. Right ovary measures 2.3 x 1.4 x 1.4 cm. Left ovary measures 1.4 x 2.7 x 1.0 cm. US/US pelvic and transvaginal IMPRESSION: Unremarkable ovaries, hysterectomy. Electronically signed by: Oscar Lugo MD 11/11/2024 04:55 PM EDT
== END 2024-11-11 16:13 | disposition home or self-care (01) ==
LOC: HO.US 16:12
PROVIDERS: PCP Internal Medicine; Visit Provider Internal Medicine
DX: R10.2 Pelvic and perineal pain (principal)
CPT/HCPCS: 76830; 76856

== ENCOUNTER → 2024-11-11 16:15 | Outpatient (BNV) | payer OTHER, SELFPAY | PROVIDERS: PCP Internal Medicine; Visit Provider Radiology Diagnostic Radiology | DX: R10.2 Pelvic and perineal pain (principal) | CPT/HCPCS: 76830; 76856 ==

== ENCOUNTER 2025-05-17 11:30 | Outpatient (AMB) | payer OTHER, SELFPAY ==
[2025-05-17 11:32] VITALS: BP 138/82; PULSE 75; O2SAT 97; BMI 33.1
--- NOTE | 2025-05-17 11:32 | MHC.OFFVIS ---
Vital Signs 05/17/25 11:32 Height 5 ft 1.5 in Weight 178 lb BMI 33.1 BP 138/82 Blood Pressure Location Rt brachial Position Sitting Pulse 75 Pulse Source Pulse Oximeter Pulse Oximetry (%) 97 Oxygen Delivery Method Room Air Intake Visit Reasons: Shortness of breath Allergies Seasonal Allergies Allergy (Intermediate, Verified 05/17/25 11:38) Itchy Eyes lactose Adverse Reaction (Severe, Verified 05/17/25 11:38) Abdominal Pain shrimp Allergy (Severe, Uncoded 10/17/24 08:34) Anaphylaxis HPI HPI Shortness of breath: Details: 50-year-old lady, nonsmoker, with underlying history of asthma, well controlled on Breo and as needed albuterol MDI/duo nebs. Patient denies any recent exacerbations. [facility] Medical History Diabetes Psoriatic arthritis Hearing loss Right-sided sensorineural hearing loss Moderate persistent asthma Chronic diarrhea Chronic fatigue Moderate recurrent major depression Lymphadenopathy Physical exam Hearing loss Vitamin D deficiency Post-surgical hypothyroidism Papillary microcarcinoma of thyroid Surgical History Hx of carpal tunnel repair History of partial hysterectomy Hx of thyroidectomy Family History Father Diabetes mellitus Hypertension High cholesterol Mother Rheumatoid arthritis Lupus Hypothyroidism Hypertension Maternal Grandmother Bladder cancer Paternal Aunt Breast cancer Family/Other Mental health disorder Substance use disorder Social History Household Members: Children [facility] Are you a primary adult day care worker to a significant other at home: No Do you presently have visiting nurse or other home services: No Alcohol intake: current Alcohol intake frequency: a few times a month Alcohol type: wine and hard liquor Patient Tobacco Use Status: Never used Tobacco e-Cigarette/Vaping Use: Never Used Second Hand Smoke Exposure: No service: No Current occupational status: employed Current occupational exposures/hazards: No Cognitive needs: No Hearing needs: No Vision needs: Yes Review of Systems Const Denies daytime sleepiness, Denies excessive sweating, Denies fatigue, Denies fever(s), Denies lethargy, Denies malaise, Denies night sweats, Denies snoring and Denies weight loss Eyes Denies blurry vision and Denies itchy eyes ENT Denies nasal congestion, Denies post nasal drip, Denies sinus pain, Denies sinus pressure and Denies other ( Thrush) Card Denies chest pain, Denies pedal edema, Denies dyspnea, Denies orthopnea and Denies paroxysmal nocturnal dyspnea Resp Denies cough, Denies hemoptysis, Denies excessive phlegm production, Denies dyspnea, Denies snoring and Denies wheezing GI Denies abdominal pain and Denies heartburn Musc Denies myalgias, Denies arthralgias and Denies joint swelling Skin/Breast Denies rash Neuro Denies memory loss and Denies seizure-like activity Psych Denies abnormal sleep pattern, Denies anxiety and Denies memory loss Endo Denies excessive sweating, Denies fatigue and Denies heat intolerance Rj/Lymph Denies easy bruising Aller/Immun Denies itchy eyes, Denies seasonal rhinorrhea and Denies wheezing Physical Exam Vital Signs: Last Vital Signs Pulse 75 05/17/25 11:32 BP 138/82 05/17/25 11:32 Pulse Ox 97 05/17/25 11:32 Oxygen Delivery Method Room Air 05/17/25 11:32 BMI result Body Mass Index 33.1 Const General: no acute distress and alert Nutritional Appearance: not obese Orientation/consciousness: Other orientation findings ( oriented) HEENT Head: Yes atraumatic Eyes General: appearance normal, both eyes and all related structures Sclerae: sclerae normal EOM: EOMs intact bilaterally Neck Neck: Yes supple Lymphatic: no lymphadenopathy noted Resp Effort & Inspection: normal respiratory effort and no use of accessory muscles Auscultation: clear to auscultation bilaterally Cardio Rate: regular rate Rhythm: regular rhythm Heart sounds: no gallops, no murmurs and no rubs Skin General skin exam: other ( warm) Extrem General: No clubbing, No cyanosis and No edema Assessment & Plan Assessment & Plan (1) Moderate persistent asthma: Code(s): J45.40 - Moderate persistent asthma, uncomplicated Category: Medical Qualifiers: Asthma complication type: uncomplicated Qualified Code(s): J45.40 - Moderate persistent asthma, uncomplicated Plan: Well controlled on current regimen of Breo and albuterol MDI. Continue current regimen. Medications: Refilled fluticasone furoate-vilanterol 200-25 mcg/dose (Breo Ellipta) 1 ea inhalation DAILY 120 ea 2RF Coding Level of Care Code Est Pt Level 3 (18413) Diagnoses Moderate persistent asthma without complication J45.40 Asthma complication type: uncomplicated
--- OUTSIDE RECORDS SUMMARY | 2025-05-17 13:16 | XMS_ITS | Data Portability ---
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 2024 APOLONIA MORRIS MD [address] [facility],[place] [address], [place], [address] , [facility] 10:44:14 Bleeding from nose 441169976 Active 2024 APOLONIA MORRIS MD [address] [facility],[place] [address], [place], [address] , [facility] - [facility] 10:44:19 Deviated nasal septum 400222360 Active 2024 APOLONIA MORRIS MD [address] [facility],[place] [address], [place], [address] , [facility] 10:44:23 Problem Notes None recorded. Procedures Surgical History Date Name Laterality Status Provider Name and Address Organization Details Recorded Time 09/19/2024 FOL_DP completed APOLONIA MORRIS MD [address] [facility],[place] [address], [place], [address], [facility] 09/19/2024 10:44:01 Imaging Results None recorded. Procedure Notes None recorded. Medical Equipment None Reported. Medications Name Sig Start Date Stop Date Status Note LastModified by Organization Details LastModified Time Prescripti on - Prior Authorizat ion Request active Script Copy/Pr ior Auth^Sc ript Copy/Pr ior Auth_20 [id number] Not Available Not Available Not Available amoxicilli [...] Updated DateTime 09/19/2024 154.94 cm 32.7 kg/m2 29987.48 g [facility] - [facility] 09/19/2024 10:24:44 Social History None recorded. Functional Status None recorded. Mental Status None recorded. Family History Nothing Reported. Medical History No medical history recorded. Gynecological HistoryNo gynecological history recorded. Obstetrics History GPAL:G 0 P 0 0 0 0 Past Encounters Encounter ID Performer Location Encounter Start Date Encounter Closed Date Diagnosis/Indication Diagnosis SNOMED-CT Code Diagnosis ICD10 Code Diagnosis IMO Codes Diagnosis Note [id number] APOLONIA MORRIS MD [facility] [address] [address] 09/19/2024 10:14:49 09/19/2024 10:50:03 Bowing of vocal cord 188847559 J38.3 012404 Bleeding from nose 95134 6005 R04.0 2558 Deviated nasal septum 12 4954681 J34.2 297221 Health Concerns Section Related Observation LastModified by Organization Detai ls LastModified Time None Recorded Concern Status LastModified by Organization Details LastModified Time None Recorded Advance Directives Directive None Recorded Payers Insurance Date Sequence Insurance Name Policy Number Policy Miguel Covered Member ID Miguel Member ID Guarantor Name 09/19/2024 1 [facility] [id number] 01 Claire Aislinn Stockton [id number] Vishaladiel Gonzalez Notes Date Note Type Note Provider Name and Address Organization Details Recorded Time 09/19/2024 text/html ROS as noted in the HPI hoarsesuspects has vocal nodulesgets vocal fatigue at end 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 Right HAE offered. septum to right.12/27/21 [facility] MRI IAC - normal no retrocochlear pathology. 25mm mucus retention cyst right max sinus APOLONIA MORRIS MD [address] [place] [address],[place] [address], [place], [address], [place] - [facility] 09/19/2024 10:45:39 OBGyn Episode No OBEpisode recorded.
--- OUTSIDE RECORDS SUMMARY | 2025-05-17 13:16 | XMS_ITS | Clinical Summary ---
Author Organization [facility] Address [address] [facility] [address] [place] [phone] Phone Care Team Providers Care [employer] Name Role Phone Rica Rader MD Primary Care Provid er Allergies Active Allergy Reactions Criticality Noted Date Comments Shrimp Itching,Rash,Swelling Low 11/24/2024 Medications buPROPion (WELLBUTRIN XL) 300 MG ER 24 hr tablet TAKE 1 TABLET BY MOUTH EVERY MORNING DIRECTED DEPRESSION, MOTIVATION 5 Active BREO ELLIPTA 200-25 mcg/dose inhaler 5 Active levothyroxine (SYNTHROID, LEVOTHROID) 125 MCG tablet Take 1 tablet by mouth every morning. 5 Active traZODone (DESYREL) 50 MG tablet Take 50 mg by mouth nightly at bedtime. Active fluticasone propionate 44 mcg/actuation inhaler Inhale into the lungs 2 (two) times a day. Active calcium carbonate-vitam in D3 1,250 mg (500 mg elemental)-400 units per tablet Take 1 tablet by mouth daily. Active cholecalciferol (VITAMIN D3) 10,000 unit tablet Take 10,000 Units by mouth daily. Active omeprazole (PRILOSEC) 20 MG capsule Take 20 mg by mouth daily. Active lfsr-hyu-exo-ce w-ouda-ixqr-pec (FIBER 6) 1,000 mg Tab Take by mouth. Activ e estradioL (ESTRACE) 0.01 % (0.1 mg/gram) vaginal cream Apply 0.5 g to the vagina and vaginal opening nightly for two weeks, then twice weekly. 42.5 g 1 Active Family History Medical History Relation Comments POSTMENOPAUSAL BREAST CANCER Paternal Aunt two aunts Relation Status Comments Paternal Aunt Other Social History Tobacco Use Types Packs/Day Years Used Date Smoking Tobacco: Never Smokeless Tobacco: Never Tobacco Cessation:Counseling Given: Not Answered Alcohol Use Standard Drinks/Week Comments Yes 0 (1 standard drink = 0.6 oz pur e alcohol) rarely Education Answer Date Recorded Are you interested in more education? Not on jadon e 10/24/2024 Are you concerned about learning? Not on file 10/24/2024 No 10/24/2024 No 10/24/2024 Digital Access Answer Date Recorded No 10/24/2024 No 10/24/2024 Reliable internet access at home? Not on file 10/24/2024 Device with a working camera? Not on file Comments No Sex and Gender Information Value Date Recorded Sex Assigned at Not on file Legal Sex Female 10:17 AM EDT Gender Identity Not on file Sexual Orientation Not on file Last Filed Vital Signs Vital Sign Reading Time Taken Comments Blood Pressure 106/70 11/24/2024 3:51 PM EDT Pulse - - Temperature - - Respiratory Rate - - Oxygen Saturation - - Inhaled Oxygen Concentration - - Weight 77.7 kg (171 lb 3.2 oz) 11/24/2024 3:51 P M EDT Height - - Body Mass Index - - Plan of Treatment Health Maintenance Due Date Last Done Comments Adult Td,Tdap Booster 1975 LIPID PANEL 1975 TSH LEVEL 1975 DEPRESSION SCREENING 1987 HEPATITIS C SCREENING 1993 HIV ONE-TIME SCREENING (18-6 5 YEARS) 1993 MAMMOGRAM 2015 COLOGUARD 01/18/2020 COLONOSCOPY 01/18/2020 COLORECTAL CANCER SCREENING 01/18/2020 FIT TEST 01/18/2020 FOBT 01/18/2020 SIGMOIDOSCOPY 01/18/2020 VIRTUAL COLONOSCOPY 01/18/2020 INFLUENZA VACCINE (#1) 2024 COVID-19 VACCINE ( - 2024-2 6 season) 2025 PNEUMOCOCCAL VACCINES (50+ y ears) (1 of 1 - PCV) 2025 ZOSTER VACCINES (1 of 2) 2025 RSV VACCINE (1 - 1-dose 75+ series) 2050 SMOKING STATUS SCREENING (On ce After 26 Yrs) Completed 11/24/2024 HEPATITIS A VACCINES Aged Out No long er eligible based on patient's age to complete this topic HIB VACCINES Aged Out No longer eligi ble based on patient's age to complete this topic MENINGOCOCCAL VACCINES (ACWY) Aged Out No longer eligible based on patient's age to complete this topic MENINGOCOCCAL VACCINES (B) Aged Out N o longer eligible based on patient's age to complete this topic Medical Devices Not on file Insurance [place] [address] [place] [address] [place] [address] [place] [address] [place] [address] [place] [address] HMO [facility] [place] [address] [place] [address] HMO Care Teams [employer] Relationship Specialty Start Date End Date Rica Rader MD [address] [place] [address] PCP - General Internal Medicine 10/24/24 Additional Source Comments The information contained in this document represents components of the legal health record. It is not the complete legal health record.[facility]
== END 2025-05-17 11:41 | disposition home or self-care (01) ==
LOC: HO.HPS 11:31
PROVIDERS: PCP Internal Medicine; Visit Provider Internal Medicine Pulmonary Disease
DX: J45.40 Moderate persistent asthma, uncomplicated (principal)
CPT/HCPCS: 99213